=== PATIENT | female | born 1945 | race Caucasian/White ===

== ENCOUNTER 2016-12-23 06:07 | Day surgery (SDC) | payer OTHER ==
[~2016-12-23] VITALS: Ht 147.3 cm; Wt 52.0 kg
[2016-12-23] VITALS (7 sets, daily range): BP systolic 107–152; BP diastolic 62–84; PULSE 57–65; RESP 16–20; TEMP 97.3; O2SAT 91–95
[2016-12-23] MEDS ORDERED: VANCOMYCIN 1000 MG/NS 250 ML - implanted port/tunneled catheter IV SCH ×2 (06:45)
[2016-12-23] MEDS ORDERED: CHLORHEXIDINE GLUCONATE 2 % 1 PACK (2 CLOTHS) TOPICAL SCH (06:45)
[2016-12-23] MEDS ORDERED: SODIUM CHLORIDE 0.9% 1000 ML IV SCH (06:45)
[2016-12-23] MEDS ORDERED: POVIDONE IODINE 5% (ANTISEPSIS KIT) 4 APPLICATIONS EACH NARE SCH (06:45)
[2016-12-23] MEDS ORDERED: LISI-519 PO (06:59)
[2016-12-23] MEDS ORDERED: CENTCHW4 CHEW (06:59)
[2016-12-23] MEDS ORDERED: POTA10CA PO (06:59)
[2016-12-23] MEDS ORDERED: PAXI10TA2 PO (06:59)
[2016-12-23] MEDS ORDERED: FURO20TA PO (06:59)
[2016-12-23] MEDS ORDERED: OMEP40CA2 PO (06:59)
[2016-12-23] MEDS ORDERED: AMIO200T PO (06:59)
[2016-12-23] MEDS ORDERED: IPRASOL INH (06:59)
[2016-12-23] MEDS ORDERED: ROSU1TAB6 PO (06:59)
[2016-12-23] MEDS ORDERED: ASPI325T PO (06:59)
[2016-12-23] MEDS ORDERED: PROP50TA2 PO (06:59)
[2016-12-23] MEDS ORDERED: METO25TA3 PO (06:59)
[2016-12-23] MEDS ORDERED: LIDOCAINE 1%/EPINEPHrine 1:100,000 SOLN 20 ML VIAL ONE (08:24)
[2016-12-23] MEDS ORDERED: MIDAZOLAM HCL 2 MG/2 ML VIAL IV ONE (08:50)
--- NOTE | 2016-12-23 08:56 | PD.RAD ---
Post Procedure Progress Note Pre Procedure Diagnosis: (1) Lung cancer Post Procedure Diagnosis: (1) Lung cancer Procedure Date: Dec 23, 2016 Supervising Radiologist: Pancho Marrufo Proceduralist/Assist: Rupert Galaviz, RT(R), Regine Garcia RT(R) Anesthesia: Conscious Sedation Plan of Activity Patient to Unit: [facility] Patient Condition: Good See PACS Report for procedural detail/treatment Pancho Marrufo MD Dec 23, 2016 08:56
[2016-12-23] MEDS ORDERED: SODIUM CHLORIDE 0.9% FLUSH 10 ML FLUSH IVF PRN (09:00)
--- NOTE | 2016-12-23 09:44 | RADRPT ---
EXAM DATE/TIME: 12/23/2016 08:29 [facility] COMPARISON: No previous studies available for comparison. INDICATIONS : Patient presents with lung cancer in need of port placement for treatment. MEDICAL HISTORY : Anxiety Atrial fibrillation COPD Congestive heart failure CAD Depression GERD High cholesterol Hyperthyroidism SURGICAL HISTORY : Colonoscopy Defibrillator Heart Bypass Hysterectomy, complete- ovarian cyst CABG ENCOUNTER: Initial ACUITY: 1 month PAIN SCORE: 0/10 LOCATION: N/A FLUORO TIME: 2.1 minutes IMAGE SERIES: 0 SEDATION TIME: 30 minutes ACCESS: Right internal jugular vein SEDATION: 1.) 3 mg midazolam (Versed) IV 2.) 150 mcg fentanyl (Sublimaze) IV Prophylactic antibiotics were administered with appropriate pre-procedure timing. Vancomycin within 2 hours of procedure, Ancef (or alternative) within 1 hour of procedure. DEVICE: 1. [address] [place] single lumen [address] CT PROCEDURE : 1. Continuous pulse oximetry and EKG monitoring. 2. Intravenous conscious sedation. 3. Ultrasound guidance for venous access. 4. Fluoroscopic guided implantable central venous port placement. The patient was placed supine. The neck was prepped in sterile fashion. Full sterile technique was u sed, including cap, mask, sterile gloves and gown, and a large sterile sheet. Hand hygiene and 2% ch lorhexidine Betadine was utilized per protocol for cutaneous antisepsis with appropriate dry time for site. Sterile gel and sterile probe cover were utilized for ultrasound guidance. The skin and sub cutaneous tissues were infiltrated with local anesthetic solution. Under direct ultrasound guidance, central venous access was accomplished in the targeted vessel. The ultrasound images depicting access guidance were stored and saved to PACS for permanent record. A s ubcutaneous pocket was created using blunt dissection. The port was introduced to the pocket. The c atheter tubing was fed through a subcutaneous tunnel to the venotomy site. The catheter tubing was c ut to a suitable length and then was introduced through a valved Peel-Away sheath and positioned with catheter tubing tip at the cavo-atrial junction level. The pocket incision was closed with subcutic ular Vicryl suture. Steri-Strips were applied. The port was flushed and locked with heparin solutio n per protocol. Sterile dressing was applied to the site. The patient tolerated the procedure well. Conscious sedation was performed with the prescribed dosages and duration as above in the presence of an independent trained radiology nurse to assist in the monitoring of the patient. EKG and oximetry remained stable throughout the procedure. The patient tolerated the procedure well and there were no complications. The patient was sent to post anesthesia recovery in stable condition. CONCLUSION: Uncomplicated ultrasound and fluoroscopic guided implanted central venous port catheter placement as described in detail above. An 8 [place] Power port was placed. Pancho Marrufo MD on December 23, 2016 at 9:42 Board Certified Radiologist. This report was verified electronically.
== END 2016-12-23 11:25 | disposition home or self-care (01) ==
LOC: HROP 06:07 → HRIP 06:35 → HROP 11:25
PROVIDERS: ATTEND Internal Medicine Hematology & Oncology
DX: C34.90 Malignant neoplasm of unspecified part of unspecified bronchus or lung (principal); I48.91 Unspecified atrial fibrillation; I50.9 Heart failure, unspecified; J44.9 Chronic obstructive pulmonary disease, unspecified; E05.90 Thyrotoxicosis, unspecified without thyrotoxic crisis or storm; K21.9 Gastro-esophageal reflux disease without esophagitis; Z95.1 Presence of aortocoronary bypass graft; Z95.810 Presence of automatic (implantable) cardiac defibrillator
CPT/HCPCS: 36561; 76937; 77001; 99152; 99153; C1788; J1642; J2250; J3010

== ENCOUNTER 2017-05-05 11:39 | Inpatient (IN) | payer OTHER, MEDICARE ==
[~2017-05-05] VITALS: Ht 149.9 cm; Wt 60.9 kg
[~2017-05-05 11:39] MED LIST: AMIO200T PO; ASPI-183 PO; CENTCHW4 CHEW; FURO20TA PO; IPRASOL INH; LISI-519 PO; METO25TA3 PO; OMEP40CA2 PO; PAXI10TA8 PO; POTA10CA PO; PROP50TA2 PO; ROSU1TAB6 PO
[2017-05-05 12:12] VITALS: BP 115/61; PULSE 57; RESP 18; TEMP 96.7; O2SAT 96
--- NOTE | 2017-05-05 12:46 | RADRPT ---
EXAM DATE/TIME: 05/05/2017 12:32 [facility] COMPARISON: No previous studies available for comparison. INDICATIONS : Short of breath. MEDICAL HISTORY : Carcinoma, lung. Atrial fibrilation. SURGICAL HISTORY : Infusaport. Internal defibrilator. ENCOUNTER: Initial ACUITY: 1 day PAIN SCORE: 0/10 LOCATION: Bilateral chest FINDINGS: PA and lateral views of the chest demonstrate pacer lead overlying right ventricle. [id number]-Segj in right atrium. Elevated left hemidiaphragm. Linear atelectasis or scarring at the bases. Previous medi an sternotomy. No prior radiographs for comparison. Hazy opacity upper left lung which could be related to posttreatment changes of radiation for lung ma ss. CONCLUSION: Hazy opacity in the left lung possibly related to prior radiation change for reported lung carcinoma. There is some basal atelectasis or scarring and elevated left hemidiaphragm. Wudcda-i-Fauq tip in ri ght atrium. Guille Farnsworth MD on May 05, 2017 at 12:41 Board Certified Radiologist. This report was verified electronically.
[2017-05-05 15:22] VITALS: BP 126/70; PULSE 58; RESP 18; O2SAT 96
--- NOTE | 2017-05-05 15:41 | PD ---
HPI Chief Complaint: Edema Time Seen by Provider: 15:23 Travel History International Travel<30 days: No Contact w/Intl Traveler<30days: No Traveled to known affect area: No History of Present Illness HPI 71-year-old female with history of non-small cell lung cancer on chemo, anxiety , hyperthyroidism, a fib s/p ICD, presents to the emergency department from her oncologist's office, Dr. Wong, for evaluation of bilateral lower extremity edema and shortness of breath. Patient states that the lower extremity swelling started approximately 4 days ago and has become progressively worse. Patient states that she started becoming short of breath about 6 weeks ago after the start of her chemotherapy. Says she does not feel short of breath now and believes that her symptoms today were secondary to anxiety while she was in the office today. Denies fevers, chills, chest pain. PFSH Past Medical History Anxiety: Yes Cancer: Yes (Lung cancer) Cardiovascular Problems: Yes (CAD) Chemotherapy: Yes Diabetes: No GERD: Yes Hepatitis: No Hypertension: Yes Immune Disorder: No Psychiatric: Yes (anxiety) Respiratory: Yes (COPD) Immunizations Current: Yes Thyroid Disease: Yes (Hyperthyroid) ?: Not Past Surgical History AICD: Yes Cardiac Surgery: Yes (CABG, AICD, STENTS) Gynecologic Surgery: Yes (Hysterectomy) Hysterectomy: Yes Oral Surgery: Yes (Tonsilectomy) Tonsillectomy: Yes Other Surgery: Yes ("VEIN STRIPPING IN BOTH LEGS") Social History Alcohol Use: No Tobacco Use: No Substance Use: No Allergies-Medications (Allergen,Severity, Reaction): Coded Allergies: penicillin G (Verified Allergy, Severe, "Knocks me out", 05/05/17) Patient reports severe allergy. paroxetine (Verified Allergy, Intermediate, Hives, 05/05/17) Patient states this happens with the generic paxil codeine (Verified Adverse Reaction, Intermediate, Nausea/Vomiting, 05/05/17 ) Reported Meds & Prescriptions Reported Meds & Active Scripts Active Reported Centrum (Multiple Vitamins W/ Minerals) 1 Chew 1 Tab CHEW DAILY Amiodarone (Amiodarone HCl) 200 Mg Tab 200 Mg PO DAILY Omeprazole 40 Mg Cap 40 Mg PO DAILY Aspirin 325 Mg Tab 325 Mg PO DAILY Rosuvastatin (Rosuvastatin Calcium) 10 Mg Tab 10 Mg PO HS Paxil (Paroxetine HCl) 10 Mg Tab 20 Mg PO DAILY Lisinopril 5 Mg Tab 5 Mg PO DAILY Potassium Chloride ER (Potassium Chloride) 10 Meq Cap 10 Meq PO BID Furosemide 20 Mg Tab 20 Mg PO DAILY Metoprolol Tartrate 25 Mg Tab 25 Mg PO BID Propylthiouracil 50 Mg Tab 100 Mg PO Q12HR Review of Systems Except as stated in HPI: all other systems reviewed are Neg Physical Exam Narrative GENERAL: WD, thin in NAD SKIN: Focused skin assessment warm/dry. HEAD: Atraumatic. Normocephalic. EYES: Pupils equal and round. No scleral icterus. No injection or drainage. ENT: No nasal bleeding or discharge. Mucous membranes pink and moist. NECK: Trachea midline. No JVD. CARDIOVASCULAR: Regular rate and rhythm. No murmur appreciated. RESPIRATORY: No accessory muscle use. Clear to auscultation. Breath sounds equal bilaterally. GASTROINTESTINAL: Abdomen soft, non-tender, nondistended. Hepatic and splenic margins not palpable. MUSCULOSKELETAL: No obvious deformities. No clubbing. No cyanosis. Bilateral lower extremity edema without erythema NEUROLOGICAL: Awake and alert. No obvious cranial nerve deficits. Motor grossly within normal limits. Normal speech. PSYCHIATRIC: Appropriate mood and affect; insight and judgment normal. Data Data Last Documented VS Vital Signs Date Time Temp Pulse Resp B/P (MAP) Pulse Ox O2 Delivery O2 Flow Rate FiO2 05/05/17 17:47 90 18 145/67 (93) 96 05/05/17 17:02 97.7 05/05/17 15:22 Room Air Orders Orders Complete Blood Count With Diff (05/05/17 12:17) Comprehensive Metabolic Panel (05/05/17 12:17) Prothrombin Time / Inr (Pt) (05/05/17 12:17) Act Partial Throm Time (Ptt) (05/05/17 12:17) Electrocardiogram (05/05/17 ) B-Type Natriuretic Peptide (05/05/17 12:17) Creatine Kinase (Cpk) (05/05/17 12:17) Troponin I (05/05/17 12:17) Magnesium (Mg) (05/05/17 12:17) Chest, Pa & Lat (05/05/17 ) Us Leg Venous Doppler Bilat (05/05/17 ) CKMB (05/05/17 15:50) CKMB% (05/05/17 15:50) Furosemide Inj (Lasix Inj) (05/05/17 17:45) Aspirin Chew (Aspirin Chew) (05/05/17 17:45) Nitroglycerin 2% Oint (Nitroglycerin 2% (05/05/17 18:00) Admit Order (Ed Use Only) (05/05/17 17:50) Labs Laboratory Tests Test 05/05/17 15:50 Blood Urea Nitrogen 13 MG/DL Creatinine 0.90 MG/DL Random Glucose 76 MG/DL Total Protein 6.9 GM/DL Albumin 2.9 GM/DL Calcium Level 8.9 MG/DL Magnesium Level 2.0 MG/DL Alkaline Phosphatase 321 U/L Aspartate Amino Transf (AST/SGOT) 104 U/L Alanine Aminotransferase (ALT/SGPT) 84 U/L Total Bilirubin 2.8 MG/DL Sodium Level 134 MEQ/L Potassium Level 4.2 MEQ/L Chloride Level 101 MEQ/L Carbon Dioxide Level 26.5 MEQ/L Anion Gap 7 MEQ/L Estimat Glomerular Filtration Rate 62 ML/MIN Total Creatine Kinase 523 U/L Creatine Kinase MB 10.4 NG/ML Creatine Kinase MB % 2.0 % Troponin I 0.17 NG/ML B-Type Natriuretic Peptide 922 PG/ML MDM Medical Decision Making Medical Screen Exam Complete: Yes Emergency Medical Condition: Yes Differential Diagnosis pneumonia, CHF, lung cancer, anxiety, Narrative Course 71-year-old female with history of non-small cell lung cancer on chemo, anxiety , hyperthyroidism, a fib s/p ICD, presents to the emergency department from her oncologist's office, Dr. Wong, for evaluation of bilateral lower extremity edema and shortness of breath. Patient states that the lower extremity swelling started approximately 4 days ago and has become progressively worse. Patient states that she started becoming shortness of breath about 6 weeks ago after the start of her chemotherapy. Says she does not feel short of breath now and believes that her symptoms today were secondary to anxiety while she was in the office today. Denies fevers, chills, chest pain. While evaluating the patient, patient mentions her cousin whom 23 years ago after a significant MVC. Says that she may be anxious as a result of this 'anniversary'. Vitals stable. Last Impressions Lower Extremity Ultrasound 05/05/17 0000 Signed Impressions: Service Date/Time: Friday, May 05, 2017 16:09 - CONCLUSION: There is occlusive thrombus present within left leg varicosities. Roney Louie MD Chest X-Ray 05/05/17 0000 Signed Impressions: Service Date/Time: Friday, May 05, 2017 12:32 - CONCLUSION: Hazy opacity in the left lung possibly related to prior radiation change for reported lung carcinoma. There is some basal atelectasis or scarring and elevated left hemidiaphragm. Dfaaxp-e-Jdbq tip in right atrium. Guille Farnsworth MD Labs significant for total CK 523, troponin 0.17, BNP 922. Lasix 20mg, ASA 162mg, nitro 0.5" paste administered. Pt continues to be resting comfortable in bed. She understands her diagnosis and agrees to this admission. She will be admitted for CHF exacerbation, left leg varicosity thrombosis. Diagnosis Primary Impression: CHF (congestive heart failure) Qualified Codes: I50.9 - Heart failure, unspecified Additional Impression: Thrombosis Admitting Information Admitting Physician Requests: Admit Condition: Stable Linh Walton May 05, 2017 15:41
--- NOTE | 2017-05-05 16:53 | RADRPT ---
EXAM DATE/TIME: 05/05/2017 16:09 [facility] COMPARISON: No previous studies available for comparison. INDICATIONS : Bilateral lower extremity edema. MEDICAL HISTORY : Gastroesophageal reflux disease. Hypertension. Hyperthyroidism. Coronary artery disease. Lung cancer . SURGICAL HISTORY : Tonsillectomy.CABG Hysterectomy.Cardiac stents. AICD. Vein stripping in both legs. ENCOUNTER: Initial ACUITY: 1 week PAIN SCORE: 2/10 LOCATION: Bilateral legs. TECHNIQUE: Venous ultrasound of the left and right leg was performed from the inguinal ligament to the proximal calf. Real-time, color Doppler and spectral tracing, compression and augmentation techniques were us ed. FINDINGS: The right common femoral, femoral, popliteal, peroneal and posterior tibial veins are patent. The lef t common femoral, femoral, popliteal, peroneal and posterior tibial veins are patent. There is thromb us present within left lower [place] he varicosities as well. CONCLUSION: There is occlusive thrombus present within left leg varicosities. Roney Louie MD on May 05, 2017 at 16:49 Board Certified Radiologist. This report was verified electronically.
[2017-05-05 17:02] VITALS: TEMP 97.7
[2017-05-05 17:11] LABS: ALBUMIN 2.9 GM/DL (3.4-5.0); ALKALINE PHOSPHATASE 321 U/L (45-117); ALT (GPT) 84 U/L (10-53); AST (GOT) 104 U/L (15-37); BICARBONATE 26.5 MEQ/L (21.0-32.0); BLOOD UREA NITROGEN 13 MG/DL (7-18); CALCIUM 8.9 MG/DL (8.5-10.1); CHLORIDE 101 MEQ/L (98-107); GLOMERULAR FILTRATION RATE 62 ML/MIN (>89); GLUCOSE,RANDOM 76 MG/DL (74-106); SODIUM (NA) 134 MEQ/L (136-145); TOTAL BILIRUBIN ADULT 2.8 MG/DL (0.2-1.0); TOTAL PROTEIN 6.9 GM/DL (6.4-8.2); TROPONIN I 0.17 NG/ML (0.02-0.05)
[2017-05-05] MEDS ORDERED: FUROSEMIDE 20 MG/2 ML VIAL IV PUSH ONE (17:45)
[2017-05-05] MEDS ORDERED: ASPIRIN 81 MG CHEW TAB CHEW ONE (17:45)
[2017-05-05 17:47] VITALS: BP 145/67; PULSE 90; RESP 18; O2SAT 96
[2017-05-05] MEDS ORDERED: NITROGLYCERIN 2% OINT 1 GM PACKET TOPICAL ONE (18:00)
[2017-05-05 19:00] LABS: AUTOMATED NEUTROPHIL # 6.4 TH/MM3 (1.8-7.7); BASOPHIL % 0.3 % (0.0-2.0); EOSINOPHIL % 0.2 % (0.0-4.0); HEMATOCRIT 45.6 % (35.0-46.0); HEMOGLOBIN 14.9 GM/DL (11.6-15.3); LYMPH % 9.5 % (9.0-44.0); LYMPHOCYTE # 0.7 TH/MM3 (1.0-4.8); MEAN CELL VOLUME 114.1 FL (80.0-100.0); MEAN CORPUSCULAR HEMOGLOBIN 37.3 PG (27.0-34.0); MEAN CORPUSCULAR HGB CONC 32.7 % (32.0-36.0); MONO % 7.8 % (0.0-8.0); MONOCYTE # 0.6 TH/MM3 (0-0.9); NEUT % 82.2 % (16.0-70.0); PLATELET COUNT 49 TH/MM3 (150-450); RED CELL DISTRIBUTION WIDTH 21.2 % (11.6-17.2); WHITE BLOOD COUNT 7.7 TH/MM3 (4.0-11.0)
[2017-05-05] MEDS ORDERED: ACETAMINOPHEN 325 MG TAB PO PRN ×2 (19:00)
[2017-05-05] MEDS ORDERED: NALOXONE HCL 0.4 MG/ML AMP IV PUSH PRN (19:00)
[2017-05-05] MEDS ORDERED: ONDANSETRON HCL 4 MG/2 ML VIAL IVP PRN (19:00)
[2017-05-05] MEDS ORDERED: SENNOSIDES 8.6 MG TAB PO PRN (19:00)
[2017-05-05] MEDS ORDERED: SODIUM CHLORIDE 0.9% FLUSH 10 ML FLUSH IV FLUSH PRN (19:00)
[2017-05-05 19:30] VITALS: O2SAT 96
[2017-05-05 19:31] VITALS: BP 141/62; PULSE 60; RESP 22; O2SAT 97
[2017-05-05 20:03] LABS: INTERNATIONAL NORMALIZED RATIO 1.8 RATIO; PROTHROMBIN TIME - PATIENT 18.4 SEC (9.8-11.6)
[2017-05-05] MEDS: SODIUM CHLORIDE 0.9% FLUSH 10 ML FLUSH IV FLUSH SCH (21:00)
[2017-05-05] MEDS: ENOXAPARIN SODIUM 80 MG/0.8 ML SYRINGE SQ SCH (21:18)
[2017-05-05] MEDS ORDERED: IOHEXOL 350 MG/ML 10 ML VIAL (for RAD DIAG) IVCONTRAST ONE (21:53)
--- NOTE | 2017-05-05 22:09 | RADRPT ---
EXAM DATE/TIME: 05/05/2017 21:42 [facility] COMPARISON: No previous studies available for comparison. INDICATIONS : Shortness of breath; rule out pulmonary embolus. IV CONTRAST: 74 cc Omnipaque 350 (iohexol) IV RADIATION DOSE: 6.19 CTDIvol (mGy) MEDICAL HISTORY : Hypertension. Carcinoma, lung. SURGICAL HISTORY : CABG Tonsillectomy. ENCOUNTER: Initial ACUITY: 2 days PAIN SCALE: 0/10 LOCATION: chest TECHNIQUE: Volumetric scanning of the chest was performed using a pulmonary embolism protocol MIP images were re constructed. Using automated exposure control and adjustment of the mA and/or kV according to patien t size, radiation dose was kept as low as reasonably achievable to obtain optimal diagnostic quality images. DICOM format image data is available electronically for review and comparison. Follow-up recommendations for detected pulmonary nodules are based at a minimum on nodule size and pa tient risk factors according to Fleischner Society Guidelines. FINDINGS: There is no pulmonary embolus. Large left hilar mass present, measures approximately 6.2 x 5.9 x 4.4 cm. It causes mass effect on th e main and left pulmonary arteries but they remain patent. The mass encases the left upper lobe pulmo nary artery and bronchus with occlusion, especially the lingular portion. There is patchy, mildly mas slike consolidation in the left lung apex. There is post obstructive type consolidation in the lingul ar division of the left upper lobe. A small to moderate left pleural effusion is present. No pulmonary mass or consolidation on the right. CONCLUSION: 1. No pulmonary embolus. 2. Large left hilar mass which may be metastatic or a central primary bronchogenic carcinoma. There i s associated lingular bronchus and pulmonary artery obstruction. Mass effect and mild narrowing on/of the main and left main branch pulmonary artery. 3. Patchy nodular left apex upper lobe consolidation, most likely infectious or inflammatory although malignancy not entirely excludable. 4. Small to moderate left pleural effusion. Braden Ferrer MD on May 05, 2017 at 22:00 Board Certified Radiologist. This report was verified electronically.
--- NOTE | 2017-05-05 23:42 | HHI.HP ---
HPI Service [facility] Hospitalists Primary Care Physician Non-Staff Admission Diagnosis CHF Diagnoses: Travel History International Travel<30 Days: No Contact w/Intl Traveler <30 Da: No Traveled to Known Affected Are: No History of Present Illness History from patient, and review of medical records. Patient reported that she went to her chemotherapy this morning and was complaining of her bilateral lower extremity swelling to her oncologist. This swelling has been going on for the past 4 days. There for the oncologist has sent her to come to hospital. Patient reports that she also has shortness of breath. But again stated this is chronic and is because of anxiety. She then stated that last week though, her cough was getting worse. Denies any chest pains or palpitations. Patient was discharged from [facility] about 2 months ago. She denies any fever. Denies cough. Reports somewhat chronic cough though. Denies any vomiting. She did have nausea with chemotherapy. Also reports of occasional specks of blood in her cough. Denies any black or red stool. Denies blood in her urine. Denies any urinary burning or pain on urination. Reports she does have occasional diarrhea/constipation alternating. Again this is chronic. Review of Systems Except as stated in HPI: all other systems reviewed are Neg Past Family Social History Past Medical History htn cad- massive [place] 23 yrs ago, had [facility] chf- s/p aicd 35% afib- only asa; not on any anticoagulation apart from asa copd squamous cell carcinoma of the lung - on chemo - last dose was 3 weeks ago; was supposed to start radiation today anxiety hyperthyroidism Past Surgical History s/p aicd- 7 yrs ago; replaced it 2 months ago (the whole device) by Dr Moran at [facility] 23yrs ago coronary angiogram hysterectomy tonsilectomy venous stripping egd and colonoscopy--bleeding hemorrhoids and polyps removed Allergies: Coded Allergies: penicillin G (Verified Allergy, Severe, "Knocks me out", 05/05/17) Patient reports severe allergy. paroxetine (Verified Allergy, Intermediate, Hives, 05/05/17) Patient states this happens with the generic paxil codeine (Verified Adverse Reaction, Intermediate, Nausea/Vomiting, 05/05/17 ) Family History father- liver dx , dm, cad with [facility], son- heart murmur daughter- htn another son- htn Social History quit smoking oct 2016 no etoh abuse no drugs abuse lives on her own , but who lives different apt comes and helps her Physical Exam Vital Signs Vital Signs Date Time Temp Pulse Resp B/P (MAP) Pulse Ox O2 Delivery O2 Flow Rate FiO2 05/05/17 22:46 05/05/17 19:31 60 22 141/62 (88) 97 Room Air 05/05/17 19:30 96 05/05/17 17:47 90 18 145/67 (93) 96 05/05/17 17:02 97.7 05/05/17 15:22 58 18 126/70 (88) 96 Room Air 05/05/17 12:12 96.7 57 18 115/61 (79) 96 Physical Exam GENERAL: This is a well-nourished, well-developed patient, in no apparent distress. SKIN: at suprapubic area with skin redness, ulceration HEAD: Atraumatic. Normocephalic. No temporal or scalp tenderness. Alopecia EYES: No scleral icterus. No injection or drainage. ENT: Nose without bleeding, purulent drainage or septal hematoma. Uvula midline. Airway patent. NECK: Trachea midline. No JVD. Supple, nontender, no meningeal signs. CARDIOVASCULAR: Regular rate and rhythm without murmurs, gallops, or rubs. RESPIRATORY: Clear to auscultation. Breath sounds equal bilaterally. No wheezes , rales, or rhonchi. GASTROINTESTINAL: Abdomen soft, non-tender, nondistended. No guarding. MUSCULOSKELETAL: Extremities without clubbing, cyanosis. Bilateral lower extremity pitting edema 3+ up to knees NEUROLOGICAL: Awake and alert. No acute deficits Normal speech. Laboratory Laboratory Tests Test 05/05/17 15:50 05/05/17 18:35 05/05/17 19:25 05/05/17 19:35 Blood Urea Nitrogen 13 Creatinine 0.90 Random Glucose 76 Total Protein 6.9 Albumin 2.9 Calcium Level 8.9 Magnesium Level 2.0 Alkaline Phosphatase 321 Aspartate Amino Transf (AST/SGOT) 104 Alanine Aminotransferase (ALT/SGPT) 84 Total Bilirubin 2.8 Sodium Level 134 Potassium Level 4.2 Chloride Level 101 Carbon Dioxide Level 26.5 Anion Gap 7 Estimat Glomerular Filtration Rate 62 Total Creatine Kinase 523 Creatine Kinase MB 10.4 Creatine Kinase MB % 2.0 Troponin I 0.17 0.13 B-Type Natriuretic Peptide 922 White Blood Count 7.7 Red Blood Count 4.00 Hemoglobin 14.9 Hematocrit 45.6 Mean Corpuscular Volume 114.1 Mean Corpuscular Hemoglobin 37.3 Mean Corpuscular Hemoglobin Concent 32.7 Red Cell Distribution Width 21.2 Platelet Count 49 Mean Platelet Volume 11.0 Neutrophils (%) (Auto) 82.2 Lymphocytes (%) (Auto) 9.5 Monocytes (%) (Auto) 7.8 Eosinophils (%) (Auto) 0.2 Basophils (%) (Auto) 0.3 Neutrophils # (Auto) 6.4 Lymphocytes # (Auto) 0.7 Monocytes # (Auto) 0.6 Eosinophils # (Auto) 0.0 Basophils # (Auto) 0.0 CBC Comment AUTO DIFF Differential Comment AUTO DIFF CONFIRMED Prothrombin Time 18.4 Prothromb Time International Ratio 1.8 Activated Partial Thromboplast Time 29.8 Result Diagram: 05/05/17 1835 05/05/17 1550 Imaging Last 48 hours Impressions Lower Extremity Ultrasound 05/05/17 0000 Signed Impressions: Service Date/Time: Friday, May 05, 2017 16:09 - CONCLUSION: There is occlusive thrombus present within left leg varicosities. Roney Louie MD Chest X-Ray 05/05/17 0000 Signed Impressions: Service Date/Time: Friday, May 05, 2017 12:32 - CONCLUSION: Hazy opacity in the left lung possibly related to prior radiation change for reported lung carcinoma. There is some basal atelectasis or scarring and elevated left hemidiaphragm. [id number]-[id number] tip in right atrium. Guille Farnsworth MD CT Angiography 05/05/17 0000 Signed Impressions: Service Date/Time: Friday, May 05, 2017 21:42 - CONCLUSION: 1. No pulmonary embolus. 2. Large left hilar mass which may be metastatic or a central primary bronchogenic carcinoma. There is associated lingular bronchus and pulmonary artery obstruction. Mass effect and mild narrowing on/of the main and left main branch pulmonary artery. 3. Patchy nodular left apex upper lobe consolidation, most likely infectious or inflammatory although malignancy not entirely excludable. 4. Small to moderate left pleural effusion. Braden Ferrer MD [place] VTE Risk Assessment Caprini VTE Risk Assessment: Mod/High Risk (score >= 2) Caprini Risk Assessment Model Point Value = 1 Point Value = 2 Point Value = 3 Point Value = 5 Age 41-60 Minor surgery BMI > 25 kg/m2 Swollen legs Varicose veins or History of unexplained or recurrent spontaneous Oral contraceptives or hormone replacement Sepsis (< 1 month) Serious lung disease, including pneumonia (< 1 month) Abnormal pulmonary function Acute myocardial infarction Congestive heart failure (< 1 month) History of inflammatory bowel disease Medical patient at bed rest Age 61-74 Arthroscopic surgery Major open surgery (> 45 min) Laparoscopic surgery (> 45 min) Malignancy Confined to bed (> 72 hours) Immobilizing plaster cast Central venous access Age >= 75 History of VTE Family history of VTE Factor V Leiden Prothrombin [id number] Lupus anticoagulant Anticardiolipin antibodies Elevated serum homocysteine Heparin-induced thrombocytopenia Other congenital or acquired thrombophilia Stroke (< 1 month) Elective arthroplasty Hip, pelvis, or leg fracture Acute spinal cord injury (< 1 month) Prophylaxis Regimen Total Risk Factor Score Risk Level Prophylaxis Regimen 0-1 Low Early ambulation 2 Moderate Order ONE of the following: *Sequential Compression Device (SCD) *Heparin 5000 units SQ BID 3-4 Higher Order ONE of the following medications: *Heparin 5000 units SQ TID *Enoxaparin/Lovenox 40 mg SQ daily (WT < 150 kg, CrCl > 30 mL/min) *Enoxaparin/Lovenox 30 mg SQ daily (WT < 150 kg, CrCl > 10-29 mL/min) *Enoxaparin/Lovenox 30 mg SQ BID (WT < 150 kg, CrCl > 30 mL/min) AND/OR *Sequential Compression Device (SCD) 5 or more Highest Order ONE of the following medications: *Heparin 5000 units SQ TID (Preferred with Epidurals) *Enoxaparin/Lovenox 40 mg SQ daily (WT < 150 kg, CrCl > 30 mL/min) *Enoxaparin/Lovenox 30 mg SQ daily (WT < 150 kg, CrCl > 10-29 mL/min) *Enoxaparin/Lovenox 30 mg SQ BID (WT < 150 kg, CrCl > 30 mL/min) AND *Sequential Compression Device (SCD) Assessment and Plan Assessment and Plan Impression: acute on chronic symptomatic chf exacerbation bilateral LE edema LLE occlusive thrombus in varicosities medications non compliance- stated she skips lasix sometimes due to her med apt , and has missed them going to chemo apt suprapubic area skin ulceration/ cellulitis- at hysterectomy scar area foul smelling urine htn cad- massive [place] 23 yrs ago, had [facility] chf- s/p aicd 35% afib- only asa; not on any anticoagulation apart from asa copd squamous cell carcinoma of the lung - on chemo - last dose was 3 weeks ago; was supposed to start radiation today anxiety hyperthyroidism Plan: lovenox therapeutic dose for afib will ask pt's oncologist for anticoagulation thrombus is within varicosities per report , however, patient is also indicated forceful anticoagulation for her A. fib. Serial cardiac enzymes and EKGs. Patient is diuresing well with 20 mg IV of Lasix that she received in ER. We'll continue Lasix at 20 mg IV every 12 hours. Start patient on levofloxacin 500 mg by mouth every 24 hours for her skin ulcerations/cellulitis at suprapubic/hysterectomy scar area Check UA and urine culture if indicated. Resume home medications. DVT prophylaxis on Lovenox. Discussed Condition With Patient, nursing staff Lucia Rawls MD May 05, 2017 23:42
[2017-05-06] VITALS (10 sets, daily range): BP systolic 92–118; BP diastolic 51–84; PULSE 58–69; RESP 16–18; TEMP 97.6–98.6; O2SAT 94–98
[2017-05-06] MEDS: LEVOFLOXACIN 500 MG TAB PO SCH (00:24)
[2017-05-06] MEDS ORDERED: FUROSEMIDE 40 MG/4 ML VIAL IV PUSH ONE (00:30)
[2017-05-06 01:51] LABS: AUTOMATED NEUTROPHIL # 5.6 TH/MM3 (1.8-7.7); BASOPHIL % 0.1 % (0.0-2.0); EOSINOPHIL % 0.1 % (0.0-4.0); HEMATOCRIT 38.7 % (35.0-46.0); HEMOGLOBIN 12.7 GM/DL (11.6-15.3); LYMPH % 7.6 % (9.0-44.0); LYMPHOCYTE # 0.5 TH/MM3 (1.0-4.8); MEAN CELL VOLUME 114.5 FL (80.0-100.0); MEAN CORPUSCULAR HEMOGLOBIN 37.6 PG (27.0-34.0); MEAN CORPUSCULAR HGB CONC 32.8 % (32.0-36.0); MEAN PLATELET VOLUME 11.1 FL (7.0-11.0); MONO % 7.7 % (0.0-8.0); MONOCYTE # 0.5 TH/MM3 (0-0.9); NEUT % 84.5 % (16.0-70.0); PLATELET COUNT 52 TH/MM3 (150-450); RED BLOOD COUNT 3.38 MIL/MM3 (4.00-5.30); RED CELL DISTRIBUTION WIDTH 21.8 % (11.6-17.2); WHITE BLOOD COUNT 6.6 TH/MM3 (4.0-11.0)
[2017-05-06 02:07] LABS: ALKALINE PHOSPHATASE 260 U/L (45-117); TOTAL BILIRUBIN ADULT 2.5 MG/DL (0.2-1.0); TOTAL PROTEIN 5.9 GM/DL (6.4-8.2); TROPONIN I 0.12 NG/ML (0.02-0.05)
[2017-05-06 02:11] LABS: ALBUMIN 2.4 GM/DL (3.4-5.0); ALT (GPT) 74 U/L (10-53); AST (GOT) 94 U/L (15-37); BICARBONATE 29.2 MEQ/L (21.0-32.0); BLOOD UREA NITROGEN 15 MG/DL (7-18); CALCIUM 8.2 MG/DL (8.5-10.1); CHLORIDE 102 MEQ/L (98-107); CREATININE 1.06 MG/DL (0.50-1.00); GLOMERULAR FILTRATION RATE 51 ML/MIN (>89); GLUCOSE,RANDOM 121 MG/DL (74-106); SODIUM (NA) 137 MEQ/L (136-145)
[2017-05-06 03:15] LABS: HOWELL-JOLLY BODIES PRESENT (NONE SEEN)
[2017-05-06 03:17] LABS: ACANTHOCYTES OCC (NORMAL); OVALOCYTES 1+ (NORMAL)
[2017-05-06] MEDS: POTASSIUM CHLORIDE 10 MEQ CAP PO SCH ×2 (07:58→22:34)
[2017-05-06] MEDS: PROPYLTHIOURACIL 50 MG TAB PO SCH ×2 (07:58→22:34)
[2017-05-06] MEDS: METOPROLOL TARTRATE 25 MG TAB PO SCH ×2 (07:58→22:34)
[2017-05-06] MEDS: MULTIVITAMINS/MINERALS THERAPEUTIC TAB PO SCH (07:58)
[2017-05-06] MEDS: PANTOPRAZOLE SOD 40 MG DELAYED RELEASE TAB PO SCH (07:59)
[2017-05-06] MEDS: LISINOPRIL 5 MG TAB PO SCH (07:59)
[2017-05-06] MEDS: FUROSEMIDE 20 MG/2 ML VIAL IV PUSH SCH ×2 (07:59→17:35)
[2017-05-06] MEDS: SODIUM CHLORIDE 0.9% FLUSH 10 ML FLUSH IV FLUSH SCH ×2 (08:00→22:35)
[2017-05-06] MEDS: ENOXAPARIN SODIUM 80 MG/0.8 ML SYRINGE SQ SCH ×2 (08:00→22:35)
[2017-05-06] MEDS ORDERED: NON-FORMULARY DRUG (Omeprazole 40 MG) PO SCH (09:00)
[2017-05-06] MEDS: NON-FORMULARY DRUG (Paroxetine (Paxil) 20 MG) PO SCH (09:00)
[2017-05-06] MEDS ORDERED: ASPIRIN 325 MG TAB PO SCH (09:00)
--- NOTE | 2017-05-06 09:30 | HHI.PR ---
Subjective Remarks The patient appears in not acute distress. Says she does not have any pain in her legs. Denies Nausea vomiting or diarrhea or constipation. Says she feels short of breath. Has no pain at this time. She is not coughing. Has lower extremity edema improved some. Objective Vitals Vital Signs Date Time Temp Pulse Resp B/P (MAP) Pulse Ox O2 Delivery O2 Flow Rate FiO2 05/06/17 08:05 98.0 66 16 118/65 (82) 95 05/06/17 05:29 98.5 64 18 99/51 (67) 94 05/06/17 00:16 98.0 62 18 92/55 (67) 94 05/05/17 22:46 05/05/17 19:31 60 22 141/62 (88) 97 Room Air 05/05/17 19:30 96 05/05/17 17:47 90 18 145/67 (93) 96 05/05/17 17:02 97.7 05/05/17 15:22 58 18 126/70 (88) 96 Room Air 05/05/17 12:12 96.7 57 18 115/61 (79) 96 I/O 05/05/17 05/05/17 05/05/17 05/06/17 05/06/17 05/06/17 07:00 15:00 23:00 07:00 15:00 23:00 Intake Total 200 ml Balance 200 ml Intake Oral 200 ml # Voids 1 7 Result Diagram: 05/06/17 0128 05/06/17 0128 Imaging Last Impressions Lower Extremity Ultrasound 05/05/17 0000 Signed Impressions: Service Date/Time: Friday, May 05, 2017 16:09 - CONCLUSION: There is occlusive thrombus present within left leg varicosities. Roney Louie MD Chest X-Ray 05/05/17 0000 Signed Impressions: Service Date/Time: Friday, May 05, 2017 12:32 - CONCLUSION: Hazy opacity in the left lung possibly related to prior radiation change for reported lung carcinoma. There is some basal atelectasis or scarring and elevated left hemidiaphragm. [id number]-[id number]-[id number] tip in right atrium. Guille Farnsworth MD CT Angiography 05/05/17 0000 Signed Impressions: Service Date/Time: Friday, May 05, 2017 21:42 - CONCLUSION: 1. No pulmonary embolus. 2. Large left hilar mass which may be metastatic or a central primary bronchogenic carcinoma. There is associated lingular bronchus and pulmonary artery obstruction. Mass effect and mild narrowing on/of the main and left main branch pulmonary artery. 3. Patchy nodular left apex upper lobe consolidation, most likely infectious or inflammatory although malignancy not entirely excludable. 4. Small to moderate left pleural effusion. Braden Ferrer MD Objective Remarks GENERAL: This is a well-nourished, well-developed patient, in no apparent distress. CARDIOVASCULAR: Regular rate and rhythm without murmurs, gallops, or rubs. RESPIRATORY: Clear to auscultation. Breath sounds equal bilaterally. No wheezes , rales, or rhonchi. GASTROINTESTINAL: Abdomen soft, non-tender, nondistended. No guarding. MUSCULOSKELETAL: Extremities without clubbing, cyanosis. Bilateral lower extremity pitting edema 3+ up to knees NEUROLOGICAL: Awake and alert. No acute deficits Normal speech. A/P Assessment and Plan Acute on chronic symptomatic chf exacerbation Bilateral LE edema LLE occlusive thrombus in varicosities Medications non compliance- stated she skips lasix sometimes due to her med apt , and has missed them going to chemo apt Suprapubic area skin ulceration/ cellulitis- at hysterectomy scar area Foul smelling urine HTN CAD- massive [place] 23 yrs ago, had [facility] CHF- s/p aicd 35% AFIB- only asa; not on any anticoagulation apart from asa COPD Squamous cell carcinoma of the lung - on chemo - last dose was 3 weeks ago; was supposed to start radiation today Anxiety Hyperthyroidism Plan: lovenox therapeutic dose for afib will ask pt's oncologist for anticoagulation thrombus is within varicosities per report , however, patient is also indicated forceful anticoagulation for her A. fib. Serial cardiac enzymes and EKGs. Patient is diuresing well with 20 mg IV of Lasix that she received in ER. We'll continue Lasix at 20 mg IV every 12 hours. Start patient on levofloxacin 500 mg by mouth every 24 hours for her skin ulcerations/cellulitis at suprapubic/hysterectomy scar area Check UA and urine culture if indicated. Resume home medications. DVT prophylaxis on Lovenox. Discussed Condition With Patient, nurse Ana Cristina Hannon MD May 06, 2017 09:30
[2017-05-06 09:35] LABS: BACTERIA, URINE FEW /hpf; BILIRUBIN, URINE NEG (NEG); BLOOD, URINE LARGE (NEG); GLUCOSE,URINE NEG (NEG); KETONE, URINE NEG (NEG); MUCUS URINE FEW /lpf (OCC); NITRITE,URINE NEG (NEG); SQUAMOUS EPITHELIAL CELL URINE <1 /hpf (0-5); URINE COLOR YELLOW (YELLW/STRAW); URINE LEUKOCYTE ESTERASE NEG (NEG)
--- NOTE | 2017-05-06 19:27 | EKG ---
Date Performed: 05/06/2017 Time Performed: 02:19:30 PTAGE: 71 years EKG: SINUS BRADYCARDIA LOW QRS VOLTAGE IN EXTREMITY LEADS POSSIBLE ANTERIOR MYOCARDIAL INFARCTIO N BORDERLINE ECG PREVIOUS TRACING : 05/05/2017 19.14 Since the previous tracing, no significant change noted DOCTOR: Juliette Simon Interpretating Date/Time 05/06/2017 19:26:05
--- NOTE | 2017-05-06 20:04 | EKG ---
Date Performed: 05/05/2017 Time Performed: 19:14:22 PTAGE: 71 years EKG: Sinus rhythm POSSIBLE LEFT ATRIAL ENLARGEMENT LEFT ANTERIOR FASCICULAR BLOCK ANTEROSEPTAL MYOCARDIAL INFARCTION A BNORMAL ECG PREVIOUS TRACING : 05/05/2017 12.47 Since the previous tracing, no significant change noted DOCTOR: Juliette Simon Interpretating Date/Time 05/06/2017 20:03:42
--- NOTE | 2017-05-06 20:25 | EKG ---
Date Performed: 05/05/2017 Time Performed: 12:47:19 PTAGE: 71 years EKG: SINUS BRADYCARDIA POSSIBLE RIGHT ATRIAL ENLARGEMENT LEFT ANTERIOR FASCICULAR BLOCK ANTEROSE PTAL MYOCARDIAL INFARCTION ABNORMAL ECG NO PREVIOUS TRACING DOCTOR: Juliette Simon Interpretating Date/Time 05/06/2017 20:23:40
[2017-05-06] MEDS ORDERED: NON-FORMULARY DRUG (Rosuvastatin 10 MG) PO SCH (21:00)
[2017-05-06] MEDS: ATORVASTATIN 20 MG TAB PO SCH (22:35)
[2017-05-07] VITALS (10 sets, daily range): BP systolic 103–124; BP diastolic 51–77; PULSE 62–69; RESP 16–18; TEMP 97.4–98.3; O2SAT 93–96
[2017-05-07] MEDS: LEVOFLOXACIN 500 MG TAB PO SCH (00:18)
--- NOTE | 2017-05-07 01:05 | MB ---
cc: Scotty Wong MD DATE OF CONSULT: 05/06/2017 REASON FOR CONSULTATION: Consult requested by hospitalist for follow up of non-small cell lung cancer. HISTORY OF PRESENT ILLNESS: Manuela is a pleasant 71-year-old female. She has a history of non-small cell lung cancer stage III. She was advised to have combined concurrent radiation and chemotherapy, however, she had declined radiation therapy due to the AICD placed on the left side. She was treated with chemotherapy, carboplatin and Taxol x 3 cycles. The Taxol was stopped due to the peripheral neuropathy. Then she was started on carboplatin and Gemzar on 03/31. She was unable to tolerate that due to the severe myelosuppression. The patient was referred back to Dr. Enciso for reconsideration of radiation therapy. The patient had agreed for radiation. She has not started radiation as yet. The patient came into the office yesterday for her chemotherapy. However, she was complaining of severe swelling of both lower legs. She was also complaining of shortness of breath. She looks jaundiced. Chemotherapy was not given and she was referred to the emergency room for further evaluation. The patient now has been admitted to the hospital for exacerbation of congestive heart failure. Her liver enzymes are elevated. I have been asked to see the patient for further evaluation. Doppler US shows thrombosis in varicose vein. The patient is not feeling well. She had received Lasix and the swelling in her legs is improving. She is waiting for autocad technician to see her. The rest of the review of systems is negative. PAST MEDICAL HISTORY: Non-small cell lung cancer, anxiety disorder, atrial fibrillation, COPD, congestive heart failure, coronary artery disease, status post ND, status post coronary artery bypass surgery, depression, gastroesophageal reflux disease, hypercholesterolemia, hypothyroidism, history of stroke. PAST SURGICAL HISTORY: Cardioversion, colonoscopy, defibrillator, coronary artery bypass surgery, complete hysterectomy, Infus[place]ort. ALLERGIES: CODEINE, PAXIL AND PENICILLIN. MEDICATIONS: Amiodarone, aspirin, Lasix, nebulizer, lisinopril, metoprolol, omeprazole, Paxil, propylthiouracil. FAMILY HISTORY: Mother is alive, father , the cause of is unknown to her. She has 5 brothers, no sisters, 2 sons and 1 daughter. One of the brothers from a bike accident. SOCIAL HISTORY: The patient is . She stopped smoking a year ago. She used to smoke 2-1/2 packs a day for 30 years. She does not drink alcohol. PHYSICAL EXAMINATION: GENERAL: This is a well-developed, well-nourished ill appearing white female in on apparent distress. VITAL SIGNS: Her temperature 98, heart rate is 66, blood pressure 118/65, O2 saturation 95%. HEENT: PERRLA, EOMI, anicteric, no oral lesions noted. NECK: No lymphadenopathy noted. LUNGS: Decreased breath sounds on both sides. HEART: Regular rate and rhythm. ABDOMEN: Soft, nontender. EXTREMITIES: Edema noted up to the knees. NEUROLOGIC: Awake, alert and oriented x 3. SKIN: No significant lesions are noted. ASSESSMENT: 1. Non-small cell lung cancer, status post chemotherapy. 2. Severe swelling of both lower legs with elevated liver enzymes. This is most likely due exacerbation of congestive heart failure. 3. Elevated liver enzymes, need to rule out for liver metastasis. 4. Thrombosis in the varicose vein which is superficial vein and not deep vein thrombosis. PLAN: I have reviewed her available records and I have discussed with the patient regarding her blood test results from today which are white count 6.6, hemoglobin 12.7, platelet count is 52. She still has significant thrombocytopenia which is from the Gemzar chemotherapy. She is unable to tolerate the Gemzar. I also discussed with her other lab results. Her total bilirubin is high at 2.5. AST is 94, ALT is 74. Alkaline phosphatase is high. Clearly her liver enzymes are elevated and she is jaundiced. My recommendation is to get the CAT scan of the abdomen and pelvis with IV contrast for further evaluation of the elevated liver enzymes. This could be passive congestive hepatic dysfunction. She has been getting Lasix. It appears the patient has congestive heart failure. She has significant swelling of both lower legs. My recommendation is to consult her autocad technician, Dr. Franco for further evaluation. I will also get the hepatitis profile and will make further recommendations based on her hospital stay. I have stopped Lovenox and Aspirin due to severe thrombocytopenia. She does not have DVT. Thrombosis is in the varicose vein. Thank you for asking my opinion. MD HESHAM Jimenez/rt , 11:24 PM , 01:05 AM [email or web address]
[2017-05-07] MEDS ORDERED: IOHEXOL 350 MG/ML 10 ML VIAL (for RAD DIAG) IVCONTRAST ONE (01:21)
--- NOTE | 2017-05-07 01:29 | RADRPT ---
EXAM DATE/TIME: 05/07/2017 00:52 [facility] COMPARISON: No previous studies available for comparison. INDICATIONS : Abdominal pain, jaundice. IV CONTRAST: 75 cc Omnipaque 350 (iohexol) IV ORAL CONTRAST: No oral contrast ingested. RADIATION DOSE: 7.12 CTDIvol (mGy) MEDICAL HISTORY : Gastroesophageal reflux disease. Carcinoma, lung. Hypertension. SURGICAL HISTORY : Hysterectomy. CABG ENCOUNTER: Initial ACUITY: 1 day PAIN SCALE: 5/10 LOCATION: Abdomen. TECHNIQUE: Volumetric scanning of the abdomen and pelvis was performed. Using automated exposure control and ad justment of the mA and/or kV according to patient size, radiation dose was kept as low as reasonably achievable to obtain optimal diagnostic quality images. DICOM format image data is available electro nically for review and comparison. FINDINGS: LOWER LUNGS: A small left pleural effusion. Cardiomegaly. Left-sided pacing device. LIVER: Homogeneous density without lesion. There is no dilation of the biliary tree. No calcified gallston es. SPLEEN: Normal size without lesion. PANCREAS: Within normal limits. KIDNEYS: Normal in size and shape. There is no mass, stone or hydronephrosis. ADRENAL GLANDS: Within normal limits. VASCULAR: There is no aortic aneurysm. BOWEL/MESENTERY: The stomach, small bowel, and colon demonstrate no acute abnormality. There is no free intraperitone al air. A trace amount of ascitic fluid deep within the pelvis. ABDOMINAL WALL: Within normal limits. RETROPERITONEUM: There is no lymphadenopathy. BLADDER: No wall thickening or mass. REPRODUCTIVE: Within normal limits. INGUINAL: There is no lymphadenopathy or hernia. MUSCULOSKELETAL: Within normal limits for patient age. CONCLUSION: 1. No acute adenopathy. 2. Small left effusion. 3. Trace ascites. Evgeny العراقي Jr., MD on May 07, 2017 at 1:25 Board Certified Radiologist. This report was verified electronically.
[2017-05-07] MEDS: NON-FORMULARY DRUG (Paroxetine (Paxil) 20 MG) PO SCH (09:00)
[2017-05-07 09:32] LABS: AUTOMATED NEUTROPHIL # 4.4 TH/MM3 (1.8-7.7); BASOPHIL % 0.2 % (0.0-2.0); EOSINOPHIL % 0.1 % (0.0-4.0); HEMATOCRIT 38.8 % (35.0-46.0); HEMOGLOBIN 12.8 GM/DL (11.6-15.3); LYMPH % 10.8 % (9.0-44.0); LYMPHOCYTE # 0.6 TH/MM3 (1.0-4.8); MEAN CELL VOLUME 111.7 FL (80.0-100.0); MEAN CORPUSCULAR HEMOGLOBIN 36.9 PG (27.0-34.0); MEAN CORPUSCULAR HGB CONC 33.1 % (32.0-36.0); MEAN PLATELET VOLUME 11.6 FL (7.0-11.0); MONO % 10.8 % (0.0-8.0); MONOCYTE # 0.6 TH/MM3 (0-0.9); NEUT % 78.1 % (16.0-70.0); PLATELET COUNT 42 TH/MM3 (150-450); RED BLOOD COUNT 3.47 MIL/MM3 (4.00-5.30); RED CELL DISTRIBUTION WIDTH 21.1 % (11.6-17.2); WHITE BLOOD COUNT 5.7 TH/MM3 (4.0-11.0)
[2017-05-07] MEDS: MULTIVITAMINS/MINERALS THERAPEUTIC TAB PO SCH (09:36)
[2017-05-07] MEDS: PROPYLTHIOURACIL 50 MG TAB PO SCH ×2 (09:36→21:53)
[2017-05-07] MEDS: FUROSEMIDE 20 MG/2 ML VIAL IV PUSH SCH ×2 (09:36→18:15)
[2017-05-07] MEDS: METOPROLOL TARTRATE 25 MG TAB PO SCH ×2 (09:36→21:53)
[2017-05-07] MEDS: LISINOPRIL 5 MG TAB PO SCH (09:36)
[2017-05-07] MEDS: PANTOPRAZOLE SOD 40 MG DELAYED RELEASE TAB PO SCH (09:36)
[2017-05-07] MEDS: POTASSIUM CHLORIDE 10 MEQ CAP PO SCH ×2 (09:36→21:53)
[2017-05-07] MEDS: SODIUM CHLORIDE 0.9% FLUSH 10 ML FLUSH IV FLUSH SCH ×2 (09:37→21:53)
[2017-05-07 09:52] LABS: ALBUMIN 2.6 GM/DL (3.4-5.0); AST (GOT) 76 U/L (15-37); BLOOD UREA NITROGEN 15 MG/DL (7-18); CALCIUM 8.4 MG/DL (8.5-10.1); CHLORIDE 98 MEQ/L (98-107); CREATININE 0.79 MG/DL (0.50-1.00); GLOMERULAR FILTRATION RATE 72 ML/MIN (>89); GLUCOSE,RANDOM 104 MG/DL (74-106); SODIUM (NA) 136 MEQ/L (136-145)
[2017-05-07 09:53] LABS: ALT (GPT) 71 U/L (10-53)
[2017-05-07 09:55] LABS: ALKALINE PHOSPHATASE 277 U/L (45-117); TOTAL BILIRUBIN ADULT 1.9 MG/DL (0.2-1.0); TOTAL PROTEIN 6.1 GM/DL (6.4-8.2)
--- NOTE | 2017-05-07 10:13 | HHI.PR ---
Subjective Remarks Still with shortness of breath. Still with lower extremity edema improving. Feels weak. No nausea or vomiting no diarrhea constipation. Has decreased appetite. No pain. Objective Vitals Vital Signs Date Time Temp Pulse Resp B/P (MAP) Pulse Ox O2 Delivery O2 Flow Rate FiO2 05/07/17 08:15 97.5 63 16 124/77 (93) 93 05/07/17 07:12 64 05/07/17 03:52 97.9 65 18 106/51 (69) 95 05/07/17 00:30 69 05/06/17 23:54 97.8 69 18 102/57 (72) 95 05/06/17 20:35 65 05/06/17 20:00 98 05/06/17 19:44 97.9 66 18 108/55 (72) 95 05/06/17 16:53 66 05/06/17 14:37 98.6 67 18 109/56 (73) 95 05/06/17 11:42 97.6 62 16 116/84 (95) 96 I/O 05/06/17 05/06/17 05/06/17 05/07/17 05/07/17 05/07/17 07:00 15:00 23:00 07:00 15:00 23:00 Intake Total 250 ml Output Total 500 ml Balance -250 ml Intake Oral 250 ml Output Urine Total 500 ml # Voids 7 Result Diagram: 05/07/17 0844 05/07/17 0838 Imaging Last Impressions Abdomen/Pelvis CT 05/06/17 0000 Signed Impressions: Service Date/Time: Sunday, May 07, 2017 00:52 - CONCLUSION: 1. No acute adenopathy. 2. Small left effusion. 3. Trace ascites. Evgeny العراقي Jr., MD Lower Extremity Ultrasound 05/05/17 0000 Signed Impressions: Service Date/Time: Friday, May 05, 2017 16:09 - CONCLUSION: There is occlusive thrombus present within left leg varicosities. Roney Louie MD Chest X-Ray 05/05/17 0000 Signed Impressions: Service Date/Time: Friday, May 05, 2017 12:32 - CONCLUSION: Hazy opacity in the left lung possibly related to prior radiation change for reported lung carcinoma. There is some basal atelectasis or scarring and elevated left hemidiaphragm. [id number] tip in right atrium. Guille Farnsworth MD CT Angiography 05/05/17 0000 Signed Impressions: Service Date/Time: Friday, May 05, 2017 21:42 - CONCLUSION: 1. No pulmonary embolus. 2. Large left hilar mass which may be metastatic or a central primary bronchogenic carcinoma. There is associated lingular bronchus and pulmonary artery obstruction. Mass effect and mild narrowing on/of the main and left main branch pulmonary artery. 3. Patchy nodular left apex upper lobe consolidation, most likely infectious or inflammatory although malignancy not entirely excludable. 4. Small to moderate left pleural effusion. Braden Ferrer MD Objective Remarks GENERAL: This is a well-nourished, well-developed patient, in no apparent distress. CARDIOVASCULAR: Regular rate and rhythm without murmurs, gallops, or rubs. RESPIRATORY: Clear to auscultation. Breath sounds equal bilaterally. No wheezes , rales, or rhonchi. GASTROINTESTINAL: Abdomen soft, non-tender, nondistended. No guarding. MUSCULOSKELETAL: Extremities without clubbing, cyanosis. Bilateral lower extremity pitting edema 3+ up to knees NEUROLOGICAL: Awake and alert. No acute deficits Normal speech. A/P Assessment and Plan Acute on chronic symptomatic chf exacerbation Bilateral LE edema LLE occlusive thrombus in varicosities Medications non compliance- stated she skips lasix sometimes due to her med apt , and has missed them going to chemo apt Suprapubic area skin ulceration/ cellulitis- at hysterectomy scar area Foul smelling urine HTN CAD- massive [place] 23 yrs ago, had cabg CHF- s/p aicd 35% AFIB- only asa; not on any anticoagulation apart from asa COPD Squamous cell carcinoma of the lung - on chemo - last dose was 3 weeks ago; was supposed to start radiation today Anxiety Hyperthyroidism Plan: lovenox therapeutic dose for afib will ask pt's oncologist for anticoagulation thrombus is within varicosities per report , however, patient is also indicated forceful anticoagulation for her A. fib. Serial cardiac enzymes and EKGs. Patient is diuresing well with 20 mg IV of Lasix that she received in ER. We'll continue Lasix at 20 mg IV every 12 hours. Start patient on levofloxacin 500 mg by mouth every 24 hours for her skin ulcerations/cellulitis at suprapubic/hysterectomy scar area Check UA and urine culture if indicated. Resume home medications. DVT prophylaxis on Lovenox. Discussed Condition With Patient, nurse Possible discharge tomorrow if improved and cleared by consultants Ana Cristina Hannon MD May 07, 2017 10:13
[2017-05-07] MEDS ORDERED: POTASSIUM CHLORIDE 10 MEQ CONTROLLED RELEASE TAB PO ONE (10:15)
--- NOTE | 2017-05-07 11:47 | MB ---
cc: Dain Avalos DO DATE OF CONSULT: 05/06/2017 REASON FOR CONSULTATION: Congestive heart failure. HISTORY OF PRESENT ILLNESS: Manuela Thompson is a pleasant 71-year-old female who presented to [facility] Emergency Room on 05/06/2017 due to lower extremity swelling. She went to her chemotherapy and it was noted that she had lower extremity swelling by her oncologist, Dr. Wong. The swelling had been going on for the past few days. Her oncologist sent her to the hospital for further evaluation. She also notes that she has been more short of breath. She states that this has been getting worse over the past week. She was found to be in acute systolic heart failure. In discussing with her, occasionally, she will not take her Lasix on days when she has to go to chemotherapy, due to the increased urination that she has. I was also asked to evaluate her for atrial fibrillation. In reviewing her chart, it was found ____ sinus rhythm. Evaluating her outpatient note by Dr. Moran, there is no information about atrial fibrillation. I also reviewed multiple pacemaker checks from the office, which show no mode switching for atrial fibrillation. PAST MEDICAL HISTORY: 1. Hypertension. 2. Coronary artery disease with a history of myocardial infarction. 3. Primary dilated cardiomyopathy with an ejection fraction of 35%. 4. COPD. 5. Non-small cell lung cancer, on chemotherapy and supposed to be undergoing radiation therapy. 6. Anxiety. 7. Hyperparathyroidism. 8. Multiple AICD shocks around 2 months ago (patient was found to have hyperthyroidism and appeared to have sinus tachycardia to the point that she was getting shocked). PAST SURGICAL HISTORY: 1. AICD placement around 7 years ago. This was replaced [address] Kam due to being at [facility]. 2. CABG around 23 years ago. 3. Hysterectomy. 4. Tonsillectomy. 5. Venous stripping. 6. EGD/colonoscopy. ALLERGIES: 1. CODEINE. 2. PAROXETINE. 3. PENICILLIN. MEDICATIONS: 1. Amiodarone 200 mg daily. 2. Crestor 10 mg every night. 3. Metoprolol tartrate 25 mg b.i.d. 4. Lisinopril 5 mg daily. 5. Aspirin 325 mg daily. 6. Paxil 20 mg daily. 7. Potassium 10 milliequivalents b.i.d. 8. Lasix 20 mg daily. 9. Omeprazole 40 mg daily. 10. Propylthiouracil 100 mg b.i.d. FAMILY HISTORY: Father had liver disease, diabetes and coronary artery disease. Daughter and son have hypertension. SOCIAL HISTORY: The patient previously smoked, but quit in October 2016. Denies alcohol or drug abuse. REVIEW OF SYSTEMS: Fourteen systems were reviewed, including osteopathic. Pertinent positives and negatives above, otherwise, negative. PHYSICAL EXAMINATION: Vital signs: Temperature 98.6, heart rate 67, blood pressure 109/56, respirations 18, pulse ox 95% in room air. General: The patient appears older than stated age. Alert, awake and oriented x3. No acute distress. Extraocular muscles intact. Mucous membranes moist. Neck: Is supple. No JVD at 45 degrees. Cardiovascular: No carotid bruits heard bilaterally. Cardiac upstroke is brisk in nature. Heart is regular rate and rhythm, positive for some secondary ____. No murmurs, gallops or rubs. Pulmonary: Lungs are clear to auscultation bilaterally. No wheezes, rales or rhonchi. Abdomen: Is soft, nontender, nondistended. No organomegaly noted. Extremities: Show 2-plus pitting edema bilaterally. Neurological: No focal deficits. Skin: Warm, dry and intact. Osteopathically, no kyphoscoliosis, lordosis or paraspinal tender points. LABORATORY WORK: Hemoglobin 12.7, hematocrit 38.7, platelets 52. Potassium 3.7, BUN 15, creatinine 1.06. Troponin 0.17, decreasing to 0.12. BNP 922. ELECTROCARDIOGRAM: (05/06/2017 at 0219): Sinus bradycardia, poor R-wave progression, possible old anterior infarct. IMPRESSIONS: 1. Acute systolic heart failure, due to noncompliance. 2. Non-small cell lung cancer, on chemotherapy with a plan to start radiation therapy. 3. Hyperthyroidism. 4. Previous AICD firing, due to sinus tachycardia, secondary to sinus tachycardia. 5. Primary dilated cardiomyopathy. 6. Coronary artery disease with a history of myocardial infarction. 7. Elevated troponin, most likely type 2 in nature. 8. Thrombocytopenia, due to chemotherapy. RECOMMENDATIONS: 1. Ms. Thompson appears to have acute systolic heart failure due to noncompliance with Lasix. She will be continued on Lasix IV here. 2. As far as the elevated troponin, this is most likely type 2, due to her overall heart failure. Due to her thrombocytopenia, which will continue with chemotherapy, she is not an invasive ischemic evaluation candidate. We will continue her on medical management. 3. I was asked to evaluate for a history of atrial fibrillation but, at this time, I find no evidence that she has atrial fibrillation. Office notes were reviewed from Dr. Kam, which do not mention it. I also reviewed multiple pacemaker interrogations that showed no mode switching or atrial fibrillation. At this time, as I have no evidence of atrial fibrillation, would not treat as such. Even if she had atrial fibrillation, I would find it difficult to place her on anticoagulation, due to her thrombocytopenia with platelets anywhere from 45 to 50,000. 4. She did have previous episodes around 2 months ago with multiple shocks, felt to be due to sinus tachycardia and not atrial fibrillation. This is due to her hyperthyroidism and this has since been treated. 5. Upon discharge, she can follow up with Dr. Kam as previously scheduled. Thank you for allowing me to see Manuela Thompson. If there are any questions, please do not hesitate to call. DO ERIK Dang/KRISTY , 11:32 PM , 01:18 AM
--- NOTE | 2017-05-07 14:14 | PD.ONC.PN ---
Subjective Subjective Remarks less SOB, Less leg edema. Objective Data Date Time Temp Pulse Resp B/P (MAP) Pulse Ox O2 Delivery O2 Flow Rate FiO2 05/07/17 11:50 64 05/07/17 11:28 98.3 65 16 113/58 (76) 95 05/07/17 08:15 97.5 63 16 124/77 (93) 93 05/07/17 07:12 64 05/07/17 03:52 97.9 65 18 106/51 (69) 95 05/07/17 00:30 69 05/06/17 23:54 97.8 69 18 102/57 (72) 95 05/06/17 20:35 65 05/06/17 20:00 98 05/06/17 19:44 97.9 66 18 108/55 (72) 95 05/06/17 16:53 66 05/06/17 14:37 98.6 67 18 109/56 (73) 95 Result Diagram: 05/07/17 0844 05/07/17 0838 Laboratory Results Laboratory Tests Test 05/07/17 08:38 05/07/17 08:44 Blood Urea Nitrogen 15 MG/DL Creatinine 0.79 MG/DL Random Glucose 104 MG/DL Total Protein 6.1 GM/DL Albumin 2.6 GM/DL Calcium Level 8.4 MG/DL Alkaline Phosphatase 277 U/L Aspartate Amino Transf (AST/SGOT) 76 U/L Alanine Aminotransferase (ALT/SGPT) 71 U/L Total Bilirubin 1.9 MG/DL Sodium Level 136 MEQ/L Potassium Level 3.1 MEQ/L Chloride Level 98 MEQ/L Carbon Dioxide Level 30.0 MEQ/L Anion Gap 8 MEQ/L Estimat Glomerular Filtration Rate 72 ML/MIN White Blood Count 5.7 TH/MM3 Red Blood Count 3.47 MIL/MM3 Hemoglobin 12.8 GM/DL Hematocrit 38.8 % Mean Corpuscular Volume 111.7 FL Mean Corpuscular Hemoglobin 36.9 PG Mean Corpuscular Hemoglobin Concent 33.1 % Red Cell Distribution Width 21.1 % Platelet Count 42 TH/MM3 Mean Platelet Volume 11.6 FL Neutrophils (%) (Auto) 78.1 % Lymphocytes (%) (Auto) 10.8 % Monocytes (%) (Auto) 10.8 % Eosinophils (%) (Auto) 0.1 % Basophils (%) (Auto) 0.2 % Neutrophils # (Auto) 4.4 TH/MM3 Lymphocytes # (Auto) 0.6 TH/MM3 Monocytes # (Auto) 0.6 TH/MM3 Eosinophils # (Auto) 0.0 TH/MM3 Basophils # (Auto) 0.0 TH/MM3 CBC Comment AUTO DIFF Differential Comment AUTO DIFF CONFIRMED Platelet Estimate LOW Platelet Morphology Comment ENLARGED B-Type Natriuretic Peptide 749 PG/ML Culture Results Microbiology Date/Time Source Procedure Growth Status 05/06/17 08:30 Urine Clean Catch Urine Culture - Final 10-50,000 CFU/ML MIXED GRAM POSITIVE ... Complete Administered Medications Medications (Trade) Dose Ordered Sig/Daniel Route PRN Reason Start Time Stop Time Status Last Admin Dose Admin Sodium Chloride (NS Flush) 2 ml BID IV FLUSH 05/05/17 21:00 05/07/17 09:37 Levofloxacin (Levaquin) 500 mg Q24H PO 05/06/17 00:00 05/07/17 00:18 Lisinopril (Prinivil) 5 mg DAILY PO 05/06/17 09:00 05/07/17 09:36 Metoprolol Tartrate (Lopressor) 25 mg BID PO 05/06/17 09:00 05/07/17 09:36 Multivitamins/ Minerals Therapeutic (Theragran M Tab) 1 tab DAILY PO 05/06/17 09:00 05/07/17 09:36 Potassium Chloride (KCl) 10 meq BID PO 05/06/17 09:00 05/07/17 09:36 Propylthiouracil (Ptu) 100 mg Q12HR PO 05/06/17 09:00 05/07/17 09:36 Furosemide (Lasix Inj) 20 mg BID@ IV PUSH 05/06/17 09:00 05/07/17 09:36 Pantoprazole Sodium (Protonix) 40 mg DAILY PO 05/06/17 09:00 05/07/17 09:36 Atorvastatin Calcium (Lipitor) 20 mg HS PO 05/06/17 21:00 05/06/17 22:35 Objective Remarks GENERAL: Well-nourished, well-developed patient. SKIN: Warm and dry. HEAD: Normocephalic. EYES: No scleral icterus. No injection or drainage. NECK: Supple, trachea midline. No JVD or lymphadenopathy. LYMPHATIC: No adenopathy. CARDIOVASCULAR: Regular rate and rhythm without murmurs. RESPIRATORY: Breath sounds equal bilaterally. No accessory muscle use. GASTROINTESTINAL: Abdomen soft, non-tender, nondistended. EXTREMITIES: ++ edema. NEUROLOGICAL: No obvious focal deficit. Awake, alert, and oriented x3. Assessment/Plan Problem List: (1) CHF (congestive heart failure) ICD Codes: I50.9 - Heart failure, unspecified Status: Acute Plan: Has AICD On Lasix Improving. CT A/P = negative. Liver enzymes are high most likely due to passive hepatic congestion from CHF. (2) Lung cancer ICD Codes: C34.90 - Malignant neoplasm of unspecified part of unspecified bronchus or lung Plan: s/p Chemo. XRT and Chemo on hold due to low plat. CT A/P = negative for mets. Liver enzymes are high most likely due to passive hepatic congestion from CHF. (3) Thrombosis ICD Codes: I82.90 - Acute embolism and thrombosis of unspecified vein Status: Acute Plan: This is superficial thrombosis. No reason for anticoagulation. Lovenox is contraindicated due to plat ~50K. Hold ASA due to low plat. Pt does not have afib. This needs to be corrected in the medical records. D/W silk screen repairer Dr Avalos. No indication for anticoagulation. Pt is cleared for d/c from my standpoint. Problem Qualifiers (1) CHF (congestive heart failure): Qualified Codes: I50.9 - Heart failure, unspecified Sorathia,Gage Williamson MD May 07, 2017 14:14
--- NOTE | 2017-05-07 15:14 | HHI.DS ---
Discharge Summary Admission Date May 06, 2017 at 00:09 Discharge Date: May 08, 2017 Admitting Diagnosis CHF (1) CHF (congestive heart failure) ICD Code: I50.9 - Heart failure, unspecified Status: Acute (2) Thrombosis ICD Code: I82.90 - Acute embolism and thrombosis of unspecified vein Status: Acute (3) Lung cancer ICD Code: C34.90 - Malignant neoplasm of unspecified part of unspecified bronchus or lung Procedures none Brief History - From Admission History from patient, and review of medical records. Patient reported that she went to her chemotherapy this morning and was complaining of her bilateral lower extremity swelling to her oncologist. This swelling has been going on for the past 4 days. There for the oncologist has sent her to come to hospital. Patient reports that she also has shortness of breath. But again stated this is chronic and is because of anxiety. She then stated that last week though, her cough was getting worse. Denies any chest pains or palpitations. Patient was discharged from [facility] about 2 months ago. She denies any fever. Denies cough. Reports somewhat chronic cough though. Denies any vomiting. She did have nausea with chemotherapy. Also reports of occasional specks of blood in her cough. Denies any black or red stool. Denies blood in her urine. Denies any urinary burning or pain on urination. Reports she does have occasional diarrhea/constipation alternating. Again this is chronic. CBC/BMP: 05/07/17 0844 05/07/17 0838 Significant Findings Laboratory Tests Test 05/05/17 15:50 05/05/17 18:35 05/05/17 19:25 05/05/17 19:35 Albumin 2.9 GM/DL (3.4-5.0) Alkaline Phosphatase 321 U/L (45-117) Aspartate Amino Transf (AST/SGOT) 104 U/L (15-37) Alanine Aminotransferase (ALT/SGPT) 84 U/L (10-53) Total Bilirubin 2.8 MG/DL (0.2-1.0) Sodium Level 134 MEQ/L (136-145) Estimat Glomerular Filtration Rate 62 ML/MIN (>89) Total Creatine Kinase 523 U/L (26-192) Creatine Kinase MB 10.4 NG/ML (0.5-3.6) Troponin I 0.17 NG/ML (0.02-0.05) 0.13 NG/ML (0.02-0.05) B-Type Natriuretic Peptide 922 PG/ML (0-100) Mean Corpuscular Volume 114.1 FL (80.0-100.0) Mean Corpuscular Hemoglobin 37.3 PG (27.0-34.0) Red Cell Distribution Width 21.2 % (11.6-17.2) Platelet Count 49 TH/MM3 (150-450) Neutrophils (%) (Auto) 82.2 % (16.0-70.0) Lymphocytes # (Auto) 0.7 TH/MM3 (1.0-4.8) Prothrombin Time 18.4 SEC (9.8-11.6) Test 05/06/17 01:28 05/06/17 08:30 05/07/17 08:38 05/07/17 08:44 Red Blood Count 3.38 MIL/MM3 (4.00-5.30) 3.47 MIL/MM3 (4.00-5.30) Mean Corpuscular Volume 114.5 FL (80.0-100.0) 111.7 FL (80.0-100.0) Mean Corpuscular Hemoglobin 37.6 PG (27.0-34.0) 36.9 PG (27.0-34.0) Red Cell Distribution Width 21.8 % (11.6-17.2) 21.1 % (11.6-17.2) Platelet Count 52 TH/MM3 (150-450) 42 TH/MM3 (150-450) Mean Platelet Volume 11.1 FL (7.0-11.0) 11.6 FL (7.0-11.0) Neutrophils (%) (Auto) 84.5 % (16.0-70.0) 78.1 % (16.0-70.0) Lymphocytes (%) (Auto) 7.6 % (9.0-44.0) Lymphocytes # (Auto) 0.5 TH/MM3 (1.0-4.8) 0.6 TH/MM3 (1.0-4.8) Platelet Estimate LOW (NORMAL) LOW (NORMAL) Ovalocytes 1+ (NORMAL) Acanthocytes OCC (NORMAL) Creatinine 1.06 MG/DL (0.50-1.00) Random Glucose 121 MG/DL (74-106) Total Protein 5.9 GM/DL (6.4-8.2) 6.1 GM/DL (6.4-8.2) Albumin 2.4 GM/DL (3.4-5.0) 2.6 GM/DL (3.4-5.0) Calcium Level 8.2 MG/DL (8.5-10.1) 8.4 MG/DL (8.5-10.1) Alkaline Phosphatase 260 U/L (45-117) 277 U/L (45-117) Aspartate Amino Transf (AST/SGOT) 94 U/L (15-37) 76 U/L (15-37) Alanine Aminotransferase (ALT/SGPT) 74 U/L (10-53) 71 U/L (10-53) Total Bilirubin 2.5 MG/DL (0.2-1.0) 1.9 MG/DL (0.2-1.0) Estimat Glomerular Filtration Rate 51 ML/MIN (>89) 72 ML/MIN (>89) Troponin I 0.12 NG/ML (0.02-0.05) Urine Turbidity HAZY (CLEAR) Urine Protein 100 mg/dL (NEG-TRACE) Urine Occult Blood LARGE (NEG) Urine WBC 11 /hpf (0-5) Urine Bacteria FEW /hpf (NONE) Urine Mucus FEW /lpf (OCC) Potassium Level 3.1 MEQ/L (3.5-5.1) Monocytes (%) (Auto) 10.8 % (0.0-8.0) Platelet Morphology Comment ENLARGED (NORMAL) B-Type Natriuretic Peptide 749 PG/ML (0-100) Imaging Last Impressions Abdomen/Pelvis CT 05/06/17 0000 Signed Impressions: Service Date/Time: Sunday, May 07, 2017 00:52 - CONCLUSION: 1. No acute adenopathy. 2. Small left effusion. 3. Trace ascites. Evgeny العراقي Jr., MD Lower Extremity Ultrasound 05/05/17 0000 Signed Impressions: Service Date/Time: Friday, May 05, 2017 16:09 - CONCLUSION: There is occlusive thrombus present within left leg varicosities. Roney Louie MD Chest X-Ray 05/05/17 0000 Signed Impressions: Service Date/Time: Friday, May 05, 2017 12:32 - CONCLUSION: Hazy opacity in the left lung possibly related to prior radiation change for reported lung carcinoma. There is some basal atelectasis or scarring and elevated left hemidiaphragm. [id number] tip in right atrium. Guille Farnsworth MD CT Angiography 05/05/17 0000 Signed Impressions: Service Date/Time: Friday, May 05, 2017 21:42 - CONCLUSION: 1. No pulmonary embolus. 2. Large left hilar mass which may be metastatic or a central primary bronchogenic carcinoma. There is associated lingular bronchus and pulmonary artery obstruction. Mass effect and mild narrowing on/of the main and left main branch pulmonary artery. 3. Patchy nodular left apex upper lobe consolidation, most likely infectious or inflammatory although malignancy not entirely excludable. 4. Small to moderate left pleural effusion. Braden Ferrer MD PE at Discharge GENERAL: This is a well-nourished, well-developed patient, in no apparent distress. CARDIOVASCULAR: Regular rate and rhythm without murmurs, gallops, or rubs. RESPIRATORY: Clear to auscultation. Breath sounds equal bilaterally. No wheezes , rales, or rhonchi. GASTROINTESTINAL: Abdomen soft, non-tender, nondistended. No guarding. MUSCULOSKELETAL: Extremities without clubbing, cyanosis. Bilateral lower extremity pitting edema 3+ up to knees NEUROLOGICAL: Awake and alert. No acute deficits Normal speech. Pt update on day of discharge Feels better. LE edema improved. No n/v/d/c. Denies chest pain. SOB improved . No palpitations. Says she follows with Dr Moran cardiology Feel improved Hospital Course Acute on chronic symptomatic systolic chf exacerbation with ef 35% Bilateral LE edema LLE occlusive thrombus in varicosities Medications non compliance- stated she skips lasix sometimes due to her med apt , and has missed them going to chemo apt Suprapubic area skin ulceration/ cellulitis- at hysterectomy scar area Foul smelling urine HTN CAD- massive [place] 23 yrs ago, had cabg CHF- s/p aicd 35% AFIB- only asa; not on any anticoagulation apart from asa COPD Squamous cell carcinoma of the lung - on chemo - last dose was 3 weeks ago; was supposed to start radiation today Anxiety Hyperthyroidism Plan: lovenox therapeutic dose for afib will ask pt's oncologist for anticoagulation thrombus is within varicosities per report , however, patient is also indicated forceful anticoagulation for her A. fib. Serial cardiac enzymes and EKGs. Patient is diuresing well with 20 mg IV of Lasix that she received in ER. We'll continue Lasix at 20 mg IV every 12 hours. Start patient on levofloxacin 500 mg by mouth every 24 hours for her skin ulcerations/cellulitis at suprapubic/hysterectomy scar area Check UA and urine culture if indicated. Resume home medications. DVT prophylaxis on Lovenox. Discussed Condition With Patient, nurse Patient improved. Discharge home with home health in stable condition to follow up as OP with PCP and consultants Pt Condition on Discharge: Stable Discharge Disposition: Discharge Home Discharge Time: > 30 minutes Discharge Instructions DIET: Follow Instructions for: Heart Healthy Diet Activities you can perform: Regular-No Restrictions Follow up Referrals: Cardiology - 2 Weeks with Serena Moran MD Oncology - 1 Week PCP Follow-up - 2-3 Days New Medications: Levofloxacin (Levaquin) 500 Mg Tablet 500 MG PO Q24H for infection , #5 MG Continued Medications: Amiodarone (Amiodarone) 200 Mg Tab 200 MG PO DAILY for Regulate Heart Beat, #30 TAB 0 Refills Aspirin (Aspirin) 325 Mg Tab 325 MG PO DAILY, #30 TAB 0 Refills Furosemide (Furosemide) 20 Mg Tab 20 MG PO DAILY, #30 TAB 0 Refills Lisinopril (Lisinopril) 5 Mg Tab 5 MG PO DAILY for Blood Pressure Management, #30 TAB 0 Refills Metoprolol Tartrate (Metoprolol Tartrate) 25 Mg Tab 25 MG PO BID, #60 TAB 0 Refills Multiple Vitamins W/ Minerals (Centrum) 1 Chew 1 TAB CHEW DAILY for Nutritional Supplement, TAB 0 Refills Omeprazole (Omeprazole) 40 Mg Cap 40 MG PO DAILY, #30 CAP 0 Refills Paroxetine (Paxil) 10 Mg Tab 20 MG PO DAILY, #30 TAB 0 Refills Potassium Chloride ER (Potassium Chloride ER) 10 Meq Cap 10 MEQ PO BID for Electrolyte Replacement, #60 CAP 0 Refills Propylthiouracil (Propylthiouracil) 50 Mg Tab 100 MG PO Q12HR for Thyroid, #60 TAB 0 Refills Rosuvastatin (Rosuvastatin) 10 Mg Tab 10 MG PO HS for Cholesterol Management, TAB 0 Refills Ana Cristina Hannon MD May 07, 2017 15:14
--- NOTE | 2017-05-07 15:46 | PD.CARD.PN ---
Subjective Subjective Remarks No events overnight Breathing better, legs less edematous Objective Medications Current Medications Medications (Trade) Dose Ordered Sig/Daniel Route Start Time Stop Time Status Last Admin (NS Flush) 2 ml UNSCH PRN IV FLUSH 05/05/17 19:00 (NS Flush) 2 ml BID IV FLUSH 05/05/17 21:00 05/07/17 09:37 (Tylenol) 650 mg Q4H PRN PO 05/05/17 19:00 (Zofran Inj) 4 mg Q6H PRN IVP 05/05/17 19:00 (Tylenol) 650 mg Q6H PRN PO 05/05/17 19:00 (Narcan Inj) 0.4 mg UNSCH PRN IV PUSH 05/05/17 19:00 (Senokot) 17.2 mg Q12H PRN PO 05/05/17 19:00 (Levaquin) 500 mg Q24H PO 05/06/17 00:00 05/07/17 00:18 (Prinivil) 5 mg DAILY PO 05/06/17 09:00 05/07/17 09:36 (Lopressor) 25 mg BID PO 05/06/17 09:00 05/07/17 09:36 (Theragran M Tab) 1 tab DAILY PO 05/06/17 09:00 05/07/17 09:36 (KCl) 10 meq BID PO 05/06/17 09:00 05/07/17 09:36 (Ptu) 100 mg Q12HR PO 05/06/17 09:00 05/07/17 09:36 Non-Formulary Medication 20 mg DAILY PO 05/06/17 09:00 (Lasix Inj) 20 mg BID@18 IV PUSH 05/06/17 09:00 05/07/17 09:36 (Protonix) 40 mg DAILY PO 05/06/17 09:00 05/07/17 09:36 (Lipitor) 20 mg HS PO 05/06/17 21:00 05/06/17 22:35 Vital Signs / I&O Vital Signs Date Time Temp Pulse Resp B/P (MAP) Pulse Ox O2 Delivery O2 Flow Rate FiO2 05/07/17 11:50 64 05/07/17 11:28 98.3 65 16 113/58 (76) 95 05/07/17 08:15 97.5 63 16 124/77 (93) 93 05/07/17 07:12 64 05/07/17 03:52 97.9 65 18 106/51 (69) 95 05/07/17 00:30 69 05/06/17 23:54 97.8 69 18 102/57 (72) 95 05/06/17 20:35 65 05/06/17 20:00 98 05/06/17 19:44 97.9 66 18 108/55 (72) 95 05/06/17 16:53 66 I/O 05/06/17 05/06/17 05/06/17 05/07/17 05/07/17 05/07/17 07:00 15:00 23:00 07:00 15:00 23:00 Intake Total 250 ml Output Total 500 ml Balance -250 ml Intake Oral 250 ml Output Urine Total 500 ml # Voids 7 Physical Exam GENERAL: NAD, AAOx3, appears older than stated age SKIN: Warm and dry. HEAD: Atraumatic. Normocephalic. EYES: Pupils equal and round. No scleral icterus. No injection or drainage. ENT: No nasal bleeding or discharge. Mucous membranes pink and moist. NECK: Trachea midline. No JVD. CARDIOVASCULAR: Regular rate and rhythm. RESPIRATORY: No accessory muscle use. Clear to auscultation. Breath sounds equal bilaterally. GASTROINTESTINAL: Abdomen soft, non-tender, nondistended. Hepatic and splenic margins not palpable. MUSCULOSKELETAL: 1+ pitting edema bilaterally NEUROLOGICAL: Awake and alert. No obvious cranial nerve deficits. Motor grossly within normal limits. Five out of 5 muscle strength in the arms and legs. Normal speech. PSYCHIATRIC: Appropriate mood and affect; insight and judgment normal. Laboratory Laboratory Tests Test 05/07/17 08:38 05/07/17 08:44 Blood Urea Nitrogen 15 MG/DL Creatinine 0.79 MG/DL Random Glucose 104 MG/DL Total Protein 6.1 GM/DL Albumin 2.6 GM/DL Calcium Level 8.4 MG/DL Alkaline Phosphatase 277 U/L Aspartate Amino Transf (AST/SGOT) 76 U/L Alanine Aminotransferase (ALT/SGPT) 71 U/L Total Bilirubin 1.9 MG/DL Sodium Level 136 MEQ/L Potassium Level 3.1 MEQ/L Chloride Level 98 MEQ/L Carbon Dioxide Level 30.0 MEQ/L Anion Gap 8 MEQ/L Estimat Glomerular Filtration Rate 72 ML/MIN White Blood Count 5.7 TH/MM3 Red Blood Count 3.47 MIL/MM3 Hemoglobin 12.8 GM/DL Hematocrit 38.8 % Mean Corpuscular Volume 111.7 FL Mean Corpuscular Hemoglobin 36.9 PG Mean Corpuscular Hemoglobin Concent 33.1 % Red Cell Distribution Width 21.1 % Platelet Count 42 TH/MM3 Mean Platelet Volume 11.6 FL Neutrophils (%) (Auto) 78.1 % Lymphocytes (%) (Auto) 10.8 % Monocytes (%) (Auto) 10.8 % Eosinophils (%) (Auto) 0.1 % Basophils (%) (Auto) 0.2 % Neutrophils # (Auto) 4.4 TH/MM3 Lymphocytes # (Auto) 0.6 TH/MM3 Monocytes # (Auto) 0.6 TH/MM3 Eosinophils # (Auto) 0.0 TH/MM3 Basophils # (Auto) 0.0 TH/MM3 CBC Comment AUTO DIFF Differential Comment AUTO DIFF CONFIRMED Platelet Estimate LOW Platelet Morphology Comment ENLARGED B-Type Natriuretic Peptide 749 PG/ML Assessment and Plan Problem List: (1) CHF (congestive heart failure) ICD Codes: I50.9 - Heart failure, unspecified Status: Acute (2) Lung cancer ICD Codes: C34.90 - Malignant neoplasm of unspecified part of unspecified bronchus or lung (3) Thrombosis ICD Codes: I82.90 - Acute embolism and thrombosis of unspecified vein Status: Acute Assessment and Plan 1) Acute on chronic systolic heart failure Con't diuresis Needs compliance with Lasix, doesn't take when she goes to chemo 2) Elevated troponin Most likely Type 2 Con't medical management, not an invasive candidate at this time 3) Questionable history of AFib Not noted anywhere Even if she did, not a candidate for anti-coagulation due to thrombocytopenia 4) On discharge, follow up with Dr. Moran Problem Qualifiers (1) CHF (congestive heart failure): Qualified Codes: I50.9 - Heart failure, unspecified Dain Avalos DO May 07, 2017 15:46
[2017-05-07] MEDS: ATORVASTATIN 20 MG TAB PO SCH (21:52)
[2017-05-08] MEDS: LEVOFLOXACIN 500 MG TAB PO SCH
[2017-05-08 00:50] VITALS: PULSE 63
[2017-05-08 04:17] VITALS: BP 121/56; PULSE 62; RESP 18; TEMP 97.9; O2SAT 96
[2017-05-08 08:14] VITALS: BP 116/59; PULSE 61; RESP 16; TEMP 97.5; O2SAT 97
[2017-05-08] MEDS: SODIUM CHLORIDE 0.9% FLUSH 10 ML FLUSH IV FLUSH SCH (08:50)
[2017-05-08] MEDS: FUROSEMIDE 20 MG/2 ML VIAL IV PUSH SCH (08:51)
[2017-05-08] MEDS: LISINOPRIL 5 MG TAB PO SCH (08:52)
[2017-05-08] MEDS: POTASSIUM CHLORIDE 10 MEQ CAP PO SCH (08:52)
[2017-05-08] MEDS: PANTOPRAZOLE SOD 40 MG DELAYED RELEASE TAB PO SCH (08:52)
[2017-05-08] MEDS: METOPROLOL TARTRATE 25 MG TAB PO SCH (08:52)
[2017-05-08] MEDS: MULTIVITAMINS/MINERALS THERAPEUTIC TAB PO SCH (08:52)
[2017-05-08] MEDS: PROPYLTHIOURACIL 50 MG TAB PO SCH (08:52)
[2017-05-08] MEDS ORDERED: PAXIL 20 MG PO SCH (09:00)
--- NOTE | 2017-05-08 10:18 | PD.CARD.PN ---
Subjective Subjective Remarks No events overnight Breathing better, legs less edematous Objective Medications Current Medications Medications (Trade) Dose Ordered Sig/Daniel Route Start Time Stop Time Status Last Admin (NS Flush) 2 ml UNSCH PRN IV FLUSH 05/05/17 19:00 (NS Flush) 2 ml BID IV FLUSH 05/05/17 21:00 05/08/17 08:50 (Tylenol) 650 mg Q4H PRN PO 05/05/17 19:00 (Zofran Inj) 4 mg Q6H PRN IVP 05/05/17 19:00 (Tylenol) 650 mg Q6H PRN PO 05/05/17 19:00 (Narcan Inj) 0.4 mg UNSCH PRN IV PUSH 05/05/17 19:00 (Senokot) 17.2 mg Q12H PRN PO 05/05/17 19:00 (Levaquin) 500 mg Q24H PO 05/06/17 00:00 05/08/17 00:00 (Prinivil) 5 mg DAILY PO 05/06/17 09:00 05/08/17 08:52 (Lopressor) 25 mg BID PO 05/06/17 09:00 05/08/17 08:52 (Theragran M Tab) 1 tab DAILY PO 05/06/17 09:00 05/08/17 08:52 (KCl) 10 meq BID PO 05/06/17 09:00 05/08/17 08:52 (Ptu) 100 mg Q12HR PO 05/06/17 09:00 05/08/17 08:52 (Lasix Inj) 20 mg BID@18 IV PUSH 05/06/17 09:00 05/08/17 08:51 (Protonix) 40 mg DAILY PO 05/06/17 09:00 05/08/17 08:52 (Lipitor) 20 mg HS PO 05/06/17 21:00 05/07/17 21:52 Patient Own Medication PT OWN MED:PAXIL 20 MG G... DAILY PO 05/08/17 09:00 Vital Signs / I&O Vital Signs Date Time Temp Pulse Resp B/P (MAP) Pulse Ox O2 Delivery O2 Flow Rate FiO2 05/08/17 08:14 97.5 61 16 116/59 (78) 97 05/08/17 04:17 97.9 62 18 121/56 (77) 96 05/08/17 00:50 63 05/07/17 23:46 98.0 69 18 103/57 (72) 96 05/07/17 21:07 97.9 64 18 104/54 (71) 96 05/07/17 21:05 65 05/07/17 16:10 97.4 62 16 113/56 (75) 96 05/07/17 16:10 62 05/07/17 11:50 64 05/07/17 11:28 98.3 65 16 113/58 (76) 95 I/O 05/07/17 05/07/17 05/07/17 05/08/17 05/08/17 05/08/17 07:00 15:00 23:00 07:00 15:00 23:00 # Voids 1 Physical Exam GENERAL: NAD, AAOx3, appears older than stated age SKIN: Warm and dry. HEAD: Atraumatic. Normocephalic. EYES: Pupils equal and round. No scleral icterus. No injection or drainage. ENT: No nasal bleeding or discharge. Mucous membranes pink and moist. NECK: Trachea midline. No JVD. CARDIOVASCULAR: Regular rate and rhythm. RESPIRATORY: No accessory muscle use. Clear to auscultation. Breath sounds equal bilaterally. GASTROINTESTINAL: Abdomen soft, non-tender, nondistended. Hepatic and splenic margins not palpable. MUSCULOSKELETAL: 1+ pitting edema bilaterally NEUROLOGICAL: Awake and alert. No obvious cranial nerve deficits. Motor grossly within normal limits. Five out of 5 muscle strength in the arms and legs. Normal speech. PSYCHIATRIC: Appropriate mood and affect; insight and judgment normal. Assessment and Plan Problem List: (1) CHF (congestive heart failure) ICD Codes: I50.9 - Heart failure, unspecified Status: Acute (2) Lung cancer ICD Codes: C34.90 - Malignant neoplasm of unspecified part of unspecified bronchus or lung (3) Thrombosis ICD Codes: I82.90 - Acute embolism and thrombosis of unspecified vein Status: Acute Assessment and Plan 1) Acute on chronic systolic heart failure Appears better compensated Needs compliance with Lasix, doesn't take when she goes to chemo 2) Elevated troponin Most likely Type 2 Con't medical management, not an invasive candidate at this time 3) Questionable history of AFib Not noted anywhere Even if she did, not a candidate for anti-coagulation due to thrombocytopenia 4) On discharge, follow up with Dr. Moran Problem Qualifiers (1) CHF (congestive heart failure): Qualified Codes: I50.9 - Heart failure, unspecified Dain Avalos DO May 08, 2017 10:18
[2017-05-08 11:32] VITALS: BP 90/59; PULSE 64; RESP 20; TEMP 97.4; O2SAT 95
--- NOTE | 2017-05-08 12:25 | HHI.FF ---
Face to Face Verification Diagnosis: (1) Lung cancer (2) Thrombosis (3) CHF (congestive heart failure) Physical Therapy Order: Evaluate and Treat Home Health Nursing Order: Medical education Signs/symptoms of disease process CHF education Medication education-adverse effect Nursing assessment with vital signs I have seen patient Manuela Thompson on 05/08/17. My clinical findings support the need for the requested home health care services because: Ltd mobility - disease progression Patient has SOB Deconditioned w/ increased weakness High risk of falls I certify that my clinical findings support that this patient is homebound because: Impaired cognitive ability/safety Unsteady gait/balance Geneva Varela May 08, 2017 12:25
--- NOTE | 2017-05-08 13:08 | PD.ONC.PN ---
Subjective Subjective Remarks feels better. Leg edema has almost resolved. SOB has improved as well. Objective Data Date Time Temp Pulse Resp B/P (MAP) Pulse Ox O2 Delivery O2 Flow Rate FiO2 05/08/17 11:32 97.4 64 20 90/59 (69) 95 05/08/17 08:14 97.5 61 16 116/59 (78) 97 05/08/17 04:17 97.9 62 18 121/56 (77) 96 05/08/17 00:50 63 05/07/17 23:46 98.0 69 18 103/57 (72) 96 05/07/17 21:07 97.9 64 18 104/54 (71) 96 05/07/17 21:05 65 05/07/17 16:10 97.4 62 16 113/56 (75) 96 05/07/17 16:10 62 Result Diagram: 05/07/17 0844 05/07/17 0838 Culture Results Microbiology Date/Time Source Procedure Growth Status 05/06/17 08:30 Urine Clean Catch Urine Culture - Final 10-50,000 CFU/ML MIXED GRAM POSITIVE ... Complete Administered Medications Medications (Trade) Dose Ordered Sig/Daniel Route PRN Reason Start Time Stop Time Status Last Admin Dose Admin Sodium Chloride (NS Flush) 2 ml BID IV FLUSH 05/05/17 21:00 05/08/17 08:50 Levofloxacin (Levaquin) 500 mg Q24H PO 05/06/17 00:00 05/08/17 00:00 Lisinopril (Prinivil) 5 mg DAILY PO 05/06/17 09:00 05/08/17 08:52 Metoprolol Tartrate (Lopressor) 25 mg BID PO 05/06/17 09:00 05/08/17 08:52 Multivitamins/ Minerals Therapeutic (Theragran M Tab) 1 tab DAILY PO 05/06/17 09:00 05/08/17 08:52 Potassium Chloride (KCl) 10 meq BID PO 05/06/17 09:00 05/08/17 08:52 Propylthiouracil (Ptu) 100 mg Q12HR PO 05/06/17 09:00 05/08/17 08:52 Furosemide (Lasix Inj) 20 mg BID@18 IV PUSH 05/06/17 09:00 05/08/17 08:51 Pantoprazole Sodium (Protonix) 40 mg DAILY PO 05/06/17 09:00 05/08/17 08:52 Atorvastatin Calcium (Lipitor) 20 mg HS PO 05/06/17 21:00 05/07/17 21:52 Objective Remarks GENERAL: Well-nourished, well-developed patient. SKIN: Warm and dry. HEAD: Normocephalic. EYES: No scleral icterus. No injection or drainage. NECK: Supple, trachea midline. No JVD or lymphadenopathy. LYMPHATIC: No adenopathy. CARDIOVASCULAR: Regular rate and rhythm without murmurs. RESPIRATORY: Breath sounds equal bilaterally. No accessory muscle use. GASTROINTESTINAL: Abdomen soft, non-tender, nondistended. EXTREMITIES: minimal edema. NEUROLOGICAL: No obvious focal deficit. Awake, alert, and oriented x3. Assessment/Plan Problem List: (1) CHF (congestive heart failure) ICD Codes: I50.9 - Heart failure, unspecified Status: Acute Plan: Has AICD On Lasix Improving. CT A/P = negative. Liver enzymes are high most likely due to passive hepatic congestion from CHF. 05/08 = CHF is resolving with diuresis. Looks better. (2) Lung cancer ICD Codes: C34.90 - Malignant neoplasm of unspecified part of unspecified bronchus or lung Plan: s/p Chemo. XRT and Chemo on hold due to low plat. CT A/P = negative for mets. Liver enzymes are high most likely due to passive hepatic congestion from CHF. (3) Thrombosis ICD Codes: I82.90 - Acute embolism and thrombosis of unspecified vein Status: Acute Plan: This is superficial thrombosis. No reason for anticoagulation. Lovenox is contraindicated due to plat ~50K. Hold ASA due to low plat. Pt does not have afib. This needs to be corrected in the medical records. D/W loop tacker Dr Avalos. No indication for anticoagulation. Pt is cleared for d/c from my standpoint. 05/08/17 : Stable to be d/c today. Follow up as outpt, Chemo to resume when plat >100 sign off available prn. Problem Qualifiers (1) CHF (congestive heart failure): Qualified Codes: I50.9 - Heart failure, unspecified Lindsay Wong MD May 08, 2017 13:08
[2017-05-08] MEDS ORDERED: LEVA750T9 PO (16:04)
[2017-05-08] MEDS ORDERED: LEVA500T33 PO (16:10)
--- NOTE | 2017-05-08 16:16 | HHI.PR ---
Subjective Remarks Feels better. LE edema improved. No n/v/d/c. Denies chest pain. SOB improved . No palpitations. Says she follows with Dr Moran cardiology Feel improved Objective Vitals Vital Signs Date Time Temp Pulse Resp B/P (MAP) Pulse Ox O2 Delivery O2 Flow Rate FiO2 05/08/17 11:32 97.4 64 20 90/59 (69) 95 05/08/17 08:14 97.5 61 16 116/59 (78) 97 05/08/17 04:17 97.9 62 18 121/56 (77) 96 05/08/17 00:50 63 05/07/17 23:46 98.0 69 18 103/57 (72) 96 05/07/17 21:07 97.9 64 18 104/54 (71) 96 05/07/17 21:05 65 I/O 05/07/17 05/07/17 05/07/17 05/08/17 05/08/17 05/08/17 07:00 15:00 23:00 07:00 15:00 23:00 # Voids 1 Result Diagram: 05/07/17 0844 05/07/17 0838 Imaging Last Impressions Abdomen/Pelvis CT 05/06/17 0000 Signed Impressions: Service Date/Time: Sunday, May 07, 2017 00:52 - CONCLUSION: 1. No acute adenopathy. 2. Small left effusion. 3. Trace ascites. Evgeny العراقي Jr., MD Lower Extremity Ultrasound 05/05/17 0000 Signed Impressions: Service Date/Time: Friday, May 05, 2017 16:09 - CONCLUSION: There is occlusive thrombus present within left leg varicosities. Roney Louie MD Chest X-Ray 05/05/17 0000 Signed Impressions: Service Date/Time: Friday, May 05, 2017 12:32 - CONCLUSION: Hazy opacity in the left lung possibly related to prior radiation change for reported lung carcinoma. There is some basal atelectasis or scarring and elevated left hemidiaphragm. [id number] tip in right atrium. Guille Farnsworth MD CT Angiography 05/05/17 0000 Signed Impressions: Service Date/Time: Friday, May 05, 2017 21:42 - CONCLUSION: 1. No pulmonary embolus. 2. Large left hilar mass which may be metastatic or a central primary bronchogenic carcinoma. There is associated lingular bronchus and pulmonary artery obstruction. Mass effect and mild narrowing on/of the main and left main branch pulmonary artery. 3. Patchy nodular left apex upper lobe consolidation, most likely infectious or inflammatory although malignancy not entirely excludable. 4. Small to moderate left pleural effusion. Braden Ferrer MD Objective Remarks GENERAL: This is a well-nourished, well-developed patient, in no apparent distress. CARDIOVASCULAR: Regular rate and rhythm without murmurs, gallops, or rubs. RESPIRATORY: Clear to auscultation. Breath sounds equal bilaterally. No wheezes , rales, or rhonchi. GASTROINTESTINAL: Abdomen soft, non-tender, nondistended. No guarding. MUSCULOSKELETAL: Extremities without clubbing, cyanosis. Bilateral lower extremity pitting edema 3+ up to knees NEUROLOGICAL: Awake and alert. No acute deficits Normal speech. Procedures none A/P Problem List: (1) CHF (congestive heart failure) ICD Code: I50.9 - Heart failure, unspecified Status: Acute (2) Thrombosis ICD Code: I82.90 - Acute embolism and thrombosis of unspecified vein Status: Acute (3) Lung cancer ICD Code: C34.90 - Malignant neoplasm of unspecified part of unspecified bronchus or lung Assessment and Plan Acute on chronic symptomatic CHF exacerbation Bilateral LE edema LLE occlusive thrombus in varicosities Medications non compliance- stated she skips Lasix sometimes due to her med apt , and has missed them going to chemo apt Suprapubic area skin ulceration/ cellulitis- at hysterectomy scar area Foul smelling urine HTN CAD- massive UT 23 yrs ago, had cabg CHF- s/p aicd 35% AFIB- only asa; not on any anticoagulation apart from asa COPD Squamous cell carcinoma of the lung - on chemo - last dose was 3 weeks ago; was supposed to start radiation today Anxiety Hyperthyroidism Plan: Lovenox therapeutic dose for afib will ask pt's oncologist for anticoagulation thrombus is within varicosities per report , however, patient is also indicated forceful anticoagulation for her A. fib. Serial cardiac enzymes and EKGs. Patient is diuresing well with 20 mg IV of Lasix that she received in ER. We'll continue Lasix at 20 mg IV every 12 hours. Start patient on levofloxacin 500 mg by mouth every 24 hours for her skin ulcerations/cellulitis at suprapubic/hysterectomy scar area Check UA and urine culture if indicated. Resume home medications. DVT prophylaxis on Lovenox. Discussed Condition With Patient, nurse Improved, can DC home with home health. Problem Qualifiers (1) CHF (congestive heart failure): Qualified Codes: I50.9 - Heart failure, unspecified Ana Cristina Hannon MD May 08, 2017 16:16
== END 2017-05-08 19:06 | disposition home health service (06) | DRG 292 ==
LOC: NEPC 11:39 → NEDA 17:51 → NEPGCP 22:54 → OBSVTOIN 05-06 00:09
PROVIDERS: ADMIT Hospitalist; ATTEND Hospitalist
DX: I11.0 Hypertensive heart disease with heart failure (principal); I82.90 Acute embolism and thrombosis of unspecified vein; D69.59 Other secondary thrombocytopenia; I42.0 Dilated cardiomyopathy; C34.90 Malignant neoplasm of unspecified part of unspecified bronchus or lung; J44.9 Chronic obstructive pulmonary disease, unspecified; R17 Unspecified jaundice; T81.4XXA Infection following a procedure, initial encounter; I50.23 Acute on chronic systolic (congestive) heart failure; L98.491 Non-pressure chronic ulcer of skin of other sites limited to breakdown of skin; I48.91 Unspecified atrial fibrillation; T45.1X5A Adverse effect of antineoplastic and immunosuppressive drugs, initial encounter; F41.9 Anxiety disorder, unspecified; I25.10 Atherosclerotic heart disease of native coronary artery without angina pectoris; K21.9 Gastro-esophageal reflux disease without esophagitis; E05.90 Thyrotoxicosis, unspecified without thyrotoxic crisis or storm; K59.00 Constipation, unspecified; F32.9 Major depressive disorder, single episode, unspecified; R60.0 Localized edema; E78.00 Pure hypercholesterolemia, unspecified; R63.0 Anorexia; K76.1 Chronic passive congestion of liver; E07.9 Disorder of thyroid, unspecified; E21.3 Hyperparathyroidism, unspecified; Z95.1 Presence of aortocoronary bypass graft; Z95.810 Presence of automatic (implantable) cardiac defibrillator; I25.2 Old myocardial infarction; Z92.21 Personal history of antineoplastic chemotherapy; Z87.891 Personal history of nicotine dependence; Z91.14 Patient's other noncompliance with medication regimen; Z90.710 Acquired absence of both cervix and uterus; Z86.73 Personal history of transient ischemic attack (TIA), and cerebral infarction without residual deficits; Z82.49 Family history of ischemic heart disease and other diseases of the circulatory system; Z79.82 Long term (current) use of aspirin
CPT/HCPCS: 71046; 71275; 74177; 80053; 81001; 82550; 82552; 83690; 83735; 83880; 84484; 85025; 85610; 85730; 87086; 93005; 93970; 96374; G0378; J1650; J1940; Q9967

== ENCOUNTER 2017-06-16 21:09 | Inpatient (IN) | payer OTHER, MEDICARE ==
[~2017-06-16] VITALS: Ht 147.3 cm; Wt 62.5 kg
[~2017-06-16 21:09] MED LIST changes: -IPRASOL INH; +LEVA500T33 PO
[2017-06-16 21:14] VITALS: BP 131/70; PULSE 72; RESP 24; TEMP 97.7
[2017-06-16] MEDS ORDERED: SODIUM CHLORIDE 0.9% FLUSH 10 ML FLUSH IVF PRN (21:30)
[2017-06-16 21:52] VITALS: O2SAT 100
--- NOTE | 2017-06-16 21:53 | RADRPT ---
EXAM DATE/TIME: 06/16/2017 21:33 [facility] COMPARISON: CT PULMONARY ANGIOGRAM, May 05, 2017, 21:42. CHEST PA & LAT, May 05, 2017, 12:32. INDICATIONS : Short of breath. MEDICAL HISTORY : Gastroesophageal reflux disease. Carcinoma, lung. Hypertension. SURGICAL HISTORY : CABG. Hysterectomy. ENCOUNTER: Initial ACUITY: 1 day PAIN SCORE: 0/10 LOCATION: Bilateral chest FINDINGS: Consolidation and moderate to large effusion seen at the left lung base, worse. There is left volume loss and masslike opacity of the left hilar region. Right lung remains reasonably clear. There is no pneumothorax. Mild cardiomegaly similar to before. Patient has a cardiac pacer/defibrillator. There has been previo us median sternotomy. Right IJ central venous catheter with tip in the right atrium again seen. CONCLUSION: Left hilar mass with worsening ipsilateral consolidation and effusion. Braden Ferrer MD on June 16, 2017 at 21:49 Board Certified Radiologist. This report was verified electronically.
[2017-06-16 21:59] LABS: AUTOMATED NEUTROPHIL # 4.4 TH/MM3 (1.8-7.7); BASOPHIL % 0.3 % (0.0-2.0); EOSINOPHIL % 0.2 % (0.0-4.0); HEMATOCRIT 43.1 % (35.0-46.0); HEMOGLOBIN 14.1 GM/DL (11.6-15.3); LYMPH % 11.6 % (9.0-44.0); LYMPHOCYTE # 0.6 TH/MM3 (1.0-4.8); MEAN CELL VOLUME 106.8 FL (80.0-100.0); MEAN CORPUSCULAR HEMOGLOBIN 34.9 PG (27.0-34.0); MEAN CORPUSCULAR HGB CONC 32.7 % (32.0-36.0); MEAN PLATELET VOLUME 10.8 FL (7.0-11.0); MONO % 6.7 % (0.0-8.0); MONOCYTE # 0.4 TH/MM3 (0-0.9); NEUT % 81.2 % (16.0-70.0); PLATELET COUNT 50 TH/MM3 (150-450); RED BLOOD COUNT 4.04 MIL/MM3 (4.00-5.30); RED CELL DISTRIBUTION WIDTH 17.6 % (11.6-17.2); WHITE BLOOD COUNT 5.4 TH/MM3 (4.0-11.0)
[2017-06-16 22:09] LABS: INTERNATIONAL NORMALIZED RATIO 1.3 RATIO; PROTHROMBIN TIME - PATIENT 13.6 SEC (9.8-11.6)
--- NOTE | 2017-06-16 22:10 | PD ---
HPI Chief Complaint: Respiratory Symptoms Time Seen by Provider: 21:17 Travel History International Travel<30 days: No Contact w/Intl Traveler<30days: No Traveled to known affect area: No History of Present Illness HPI 71 YO F with PMH of CAD status post stenting, implanted defibrillator, CHF, lung CA, under the care of Dr. Wong, presents to the ED for evaluation of 4 day history of worsening SOB and nonproductive cough. She endorses worsening edema in the bilateral lower extremities. She endorses mild nausea and low appetite. She denies fever, chills, chest pain, abdominal pain, dysuria, back pain. She does not use oxygen at home. Per EMS report O2 saturations were "in the 40s" on arrival, improved with 4 L nasal cannula. PFSH Past Medical History Anxiety: Yes Cancer: Yes (Lung cancer) Cardiovascular Problems: Yes (CAD) Chemotherapy: Yes Diabetes: No Gastrointestinal Disorders: Yes (GERD) GERD: Yes Hepatitis: No Hypertension: Yes Immune Disorder: No Psychiatric: Yes (anxiety) Respiratory: Yes (COPD) Immunizations Current: Yes Thyroid Disease: Yes (Hyperthyroid) Past Surgical History AICD: Yes Cardiac Surgery: Yes (CABG, AICD, STENTS) Gynecologic Surgery: Yes (Hysterectomy) Hysterectomy: Yes Oral Surgery: Yes (Tonsilectomy) Tonsillectomy: Yes Other Surgery: Yes ("VEIN STRIPPING IN BOTH LEGS") Social History Alcohol Use: No Tobacco Use: No Substance Use: No Allergies-Medications (Allergen,Severity, Reaction): Coded Allergies: penicillin G (Verified Allergy, Severe, "Knocks me out", 06/16/17) Patient reports severe allergy. paroxetine (Verified Allergy, Intermediate, Hives, 06/16/17) Patient states this happens with the generic paxil codeine (Verified Adverse Reaction, Intermediate, Nausea/Vomiting, 06/16/17 ) Reported Meds & Prescriptions Reported Meds & Active Scripts Active Levaquin (Levofloxacin) 500 Mg Tablet 500 Mg PO Q24H Reported Centrum (Multiple Vitamins W/ Minerals) 1 Chew 1 Tab CHEW DAILY Amiodarone (Amiodarone HCl) 200 Mg Tab 200 Mg PO DAILY Omeprazole 40 Mg Cap 40 Mg PO DAILY Aspirin 325 Mg Tab 325 Mg PO DAILY Rosuvastatin (Rosuvastatin Calcium) 10 Mg Tab 10 Mg PO HS Paxil (Paroxetine HCl) 10 Mg Tab 20 Mg PO DAILY Lisinopril 5 Mg Tab 5 Mg PO DAILY Potassium Chloride ER (Potassium Chloride) 10 Meq Cap 10 Meq PO BID Furosemide 20 Mg Tab 20 Mg PO DAILY Metoprolol Tartrate 25 Mg Tab 25 Mg PO BID Propylthiouracil 50 Mg Tab 100 Mg PO Q12HR Review of Systems Except as stated in HPI: all other systems reviewed are Neg Physical Exam Narrative GENERAL: Frail, ashen white female, speaking in short sentences, extra work of breathing. SKIN: Focused skin assessment warm/dry. Excoriation in bilateral groins, possibly intertrigo. HEAD: Normocephalic. EYES: No scleral icterus. No injection or drainage. NECK: Supple, trachea midline. No JVD or lymphadenopathy. CARDIOVASCULAR: Regular rate and rhythm without murmurs, gallops, or rubs. RESPIRATORY: Breath sounds coarse and diminished bilaterally. Positive accessory muscle use. Tachypneic GASTROINTESTINAL: Abdomen soft, non-tender, nondistended. MUSCULOSKELETAL: No cyanosis. 2+ pitting edema to the knees bilaterally. BACK: Nontender without obvious deformity. No CVA tenderness. Data Data Last Documented VS Vital Signs Date Time Temp Pulse Resp B/P (MAP) Pulse Ox O2 Delivery O2 Flow Rate FiO2 06/16/17 21:52 100 Nasal Cannula 4.00 06/16/17 21:14 97.7 72 24 131/70 (90) Orders Orders Complete Blood Count With Diff (06/16/17 21:27) Comprehensive Metabolic Panel (06/16/17 21:27) B-Type Natriuretic Peptide (06/16/17 21:27) Act Partial Throm Time (Ptt) (06/16/17 21:27) Prothrombin Time / Inr (Pt) (06/16/17 21:27) Ckmb (Isoenzyme) Profile (06/16/17 21:27) Troponin I (06/16/17 21:27) Urinalysis - C+S If Indicated (06/16/17 21:27) Iv Access Insert/Monitor (06/16/17 21:27) Electrocardiogram (06/16/17 21:27) Ecg Monitoring (06/16/17 21:27) Oximetry (06/16/17 21:27) Oxygen Administration (06/16/17 21:27) Chest, Single Ap (06/16/17 21:27) Sodium Chloride 0.9% Flush (Ns Flush) (06/16/17 21:30) Cath For Specimen (06/16/17 22:04) Furosemide Inj (Lasix Inj) (06/16/17 22:45) Consult Medical Oncology (06/16/17 ) Admit Order (Ed Use Only) (06/16/17 22:47) Labs Laboratory Tests Test 06/16/17 21:43 06/16/17 22:17 White Blood Count 5.4 TH/MM3 Red Blood Count 4.04 MIL/MM3 Hemoglobin 14.1 GM/DL Hematocrit 43.1 % Mean Corpuscular Volume 106.8 FL Mean Corpuscular Hemoglobin 34.9 PG Mean Corpuscular Hemoglobin Concent 32.7 % Red Cell Distribution Width 17.6 % Platelet Count 50 TH/MM3 Mean Platelet Volume 10.8 FL Neutrophils (%) (Auto) 81.2 % Lymphocytes (%) (Auto) 11.6 % Monocytes (%) (Auto) 6.7 % Eosinophils (%) (Auto) 0.2 % Basophils (%) (Auto) 0.3 % Neutrophils # (Auto) 4.4 TH/MM3 Lymphocytes # (Auto) 0.6 TH/MM3 Monocytes # (Auto) 0.4 TH/MM3 Eosinophils # (Auto) 0.0 TH/MM3 Basophils # (Auto) 0.0 TH/MM3 CBC Comment AUTO DIFF Differential Total Cells Counted 100 Neutrophils % (Manual) 86 % Band Neutrophils % 1 % Lymphocytes % 8 % Monocytes % 4 % Neutrophils # (Manual) 4.8 TH/MM3 Myelocytes 1 % Nucleated Red Blood Cells 1 /100 WBC Differential Comment FINAL DIFF MANUAL Platelet Estimate LOW Platelet Morphology Comment NORMAL Ovalocytes 1+ Acanthocytes OCC Prothrombin Time 13.6 SEC Prothromb Time International Ratio 1.3 RATIO Activated Partial Thromboplast Time 29.9 SEC Blood Urea Nitrogen 12 MG/DL Creatinine 0.79 MG/DL Random Glucose 152 MG/DL Total Protein 6.4 GM/DL Albumin 2.5 GM/DL Calcium Level 8.7 MG/DL Alkaline Phosphatase 242 U/L Aspartate Amino Transf (AST/SGOT) 37 U/L Alanine Aminotransferase (ALT/SGPT) 36 U/L Total Bilirubin 1.6 MG/DL Sodium Level 140 MEQ/L Potassium Level 3.6 MEQ/L Chloride Level 102 MEQ/L Carbon Dioxide Level 27.8 MEQ/L Anion Gap 10 MEQ/L Estimat Glomerular Filtration Rate 72 ML/MIN Total Creatine Kinase 50 U/L Troponin I 0.29 NG/ML B-Type Natriuretic Peptide 871 PG/ML Urine Color YELLOW Urine Turbidity HAZY Urine pH 6.0 Urine Specific [place] 1.024 Urine Protein 100 mg/dL Urine Glucose (UA) NEG mg/dL Urine Ketones NEG mg/dL Urine Occult Blood NEG Urine Nitrite NEG Urine Bilirubin NEG Urine Urobilinogen 8.0 MG/DL Urine Leukocyte Esterase NEG Urine WBC 3 /hpf Urine Squamous Epithelial Cells <1 /hpf Urine Calcium Oxalate Crystals MANY /hpf Urine Hyaline Casts 13 /lpf Urine Granular Casts 2 /lpf Urine Mucus MOD /lpf Microscopic Urinalysis Comment CULT NOT INDICATED MDM Medical Decision Making Medical Screen Exam Complete: Yes Emergency Medical Condition: Yes Differential Diagnosis CHF exacerbation versus ACS versus non-small cell lung CA versus UTI versus other Narrative Course 71-year-old female with PMH of non-small cell lung cancer the left lung, CHF, CAD status post stenting and defibrillator implantation presents to the ED for evaluation of 4 day history of worsening shortness of breath. Patient is afebrile, O2 saturations 100% on 4 L by nasal cannula. Speaking in short sentences, positive accessory muscle use. Lung sounds are coarse and diminished bilaterally. Significant edema in bilateral lower extremities. EKG rate 71, sinus rhythm. DC interval 156, QRS 122, QTC 461. Left anterior fascicular block. No acute ST changes. Reviewed by Dr. Desir. CXR: Left hilar mass with worsening ipsilateral consolidation and effusion per radiology read. Troponin 0 0.29. BNP 871. CBC: WBC 5.4. Hemoglobin 14.1. INR 1.3. CMP: BUN 12, creatinine 0.79. Glucose 152. UA: No culture indicated. Patient was administered 40 mg of Lasix. I discussed the results of the workup and recommended admission to the hospital. Patient is agreeable. I spoke with Dr. Betancur who agrees to accept the patient to the medicine service. Consult placed with Dr. Wong. Please see medicine notes for disposition. Aileen Shetty Jun 16, 2017 22:10
[2017-06-16 22:18] LABS: ALBUMIN 2.5 GM/DL (3.4-5.0); AST (GOT) 37 U/L (15-37); BICARBONATE 27.8 MEQ/L (21.0-32.0); BLOOD UREA NITROGEN 12 MG/DL (7-18); CALCIUM 8.7 MG/DL (8.5-10.1); CHLORIDE 102 MEQ/L (98-107); CREATININE 0.79 MG/DL (0.50-1.00); GLOMERULAR FILTRATION RATE 72 ML/MIN (>89); GLUCOSE,RANDOM 152 MG/DL (74-106); SODIUM (NA) 140 MEQ/L (136-145)
[2017-06-16 22:19] LABS: ALT (GPT) 36 U/L (10-53)
[2017-06-16 22:23] LABS: ALKALINE PHOSPHATASE 242 U/L (45-117); TOTAL BILIRUBIN ADULT 1.6 MG/DL (0.2-1.0); TOTAL PROTEIN 6.4 GM/DL (6.4-8.2); TROPONIN I 0.29 NG/ML (0.02-0.05)
[2017-06-16 22:37] LABS: BANDS 1 % (0-6); CORRECTED NUCLEATED RBC 1 /100 WBC (0-0); LYMPHOCYTES 8 % (9-44); MONOCYTES 4 % (0-8); MYELOCYTES 1 % (0-0); NEUTROPHIL # MANUAL DIFF 4.8 TH/MM3 (1.8-7.7); NUCLEATED RED BLOOD CELL 1 (0-0); POLYS (SEG NEUTROPHILS) 86 % (16-70)
[2017-06-16 22:41] LABS: ACANTHOCYTES OCC (NORMAL); OVALOCYTES 1+ (NORMAL)
[2017-06-16] MEDS ORDERED: FUROSEMIDE 40 MG/4 ML VIAL IV PUSH ONE (22:45)
[2017-06-16 23:04] LABS: BLOOD, URINE NEG (NEG); CALCIUM OXALATE CRYSTALS,URINE MANY /hpf; GLUCOSE,URINE NEG (NEG); HYALINE CAST, URINE 13 /lpf (RARE); KETONE, URINE NEG (NEG); MUCUS URINE MOD /lpf (OCC); NITRITE,URINE NEG (NEG); SQUAMOUS EPITHELIAL CELL URINE <1 /hpf (0-5); URINE COLOR YELLOW (YELLW/STRAW); URINE LEUKOCYTE ESTERASE NEG (NEG)
[2017-06-16 23:08] LABS: BILIRUBIN, URINE NEG (NEG)
[2017-06-16] MEDS ORDERED: MAGNESIUM HYDROXIDE SUSP 30 ML CUP PO PRN (23:15)
[2017-06-16] MEDS ORDERED: SENNOSIDES 8.6 MG TAB PO PRN (23:15)
[2017-06-16] MEDS ORDERED: NALOXONE HCL 0.4 MG/ML AMP IV PUSH PRN (23:15)
[2017-06-16] MEDS ORDERED: BISACODYL 10 MG SUPP RECTAL PRN (23:15)
[2017-06-16] MEDS ORDERED: ONDANSETRON HCL 4 MG/2 ML VIAL IVP PRN (23:15)
[2017-06-16] MEDS ORDERED: LACTULOSE SYRUP 20 GM/30 ML CUP PO PRN (23:15)
[2017-06-16] MEDS ORDERED: SODIUM CHLORIDE 0.9% FLUSH 10 ML FLUSH IV FLUSH PRN (23:15)
[2017-06-17] VITALS (12 sets, daily range): BP systolic 82–109; BP diastolic 53–72; PULSE 65–86; RESP 16–18; TEMP 97.6–98; O2SAT 95–99
--- NOTE | 2017-06-17 00:08 | HHI.HP ---
[facility] Unknown Admission Diagnosis CHF exacerbation, elevated troponin Diagnoses: Travel History International Travel<30 Days: No Contact w/Intl Traveler <30 Da: No Traveled to Known Affected Are: No History of Present Illness 71-year-old female with a past medical history significant for non-small cell lung cancer, stage III, anxiety, A. fib anticoagulated on aspirin and Plavix, COPD not on home oxygen, CHF (no recent echo for comparison), CAD status post [place] in 1995, depression, GERD, hyperlipidemia and hyperthyroidism presents to the emergency department for evaluation of increasing shortness of breath. The patient reports that she started to have shortness of breath approximately 4 days ago and it has been consistently worsening. She endorses a cough that is at her baseline and dry. She denies any fever/chills. She has bilateral lower extremity edema with new onset of approximately 6 days ago. She was recently discharged from [facility] where her AICD was replaced. She states she has the AICD secondary to CHF. Her oncologist is Dr. Wong. The patient denies any abdominal pain. No chest pain or shortness of breath. No nausea/ vomiting/diarrhea. No lateralizing signs/symptoms. Review of Systems Except as stated in HPI: all other systems reviewed are Neg Past Family Social History Past Medical History non-small cell lung cancer, stage III, anxiety, A. fib anticoagulated on aspirin and Plavix, COPD not on home oxygen, CHF, CAD status post [place] in 1995, depression, GERD, hyperlipidemia and hyperthyroidism Past Surgical History AICD placement Cardioversion Colonoscopy CABG Hysterectomy Ovarian tumor removal Port placement Reported Medications Reported Meds & Active Scripts Active Levaquin (Levofloxacin) 500 Mg Tablet 500 Mg PO Q24H Reported Centrum (Multiple Vitamins W/ Minerals) 1 Chew 1 Tab CHEW DAILY Amiodarone (Amiodarone HCl) 200 Mg Tab 200 Mg PO DAILY Omeprazole 40 Mg Cap 40 Mg PO DAILY Aspirin 325 Mg Tab 325 Mg PO DAILY Rosuvastatin (Rosuvastatin Calcium) 10 Mg Tab 10 Mg PO HS Paxil (Paroxetine HCl) 10 Mg Tab 20 Mg PO DAILY Lisinopril 5 Mg Tab 5 Mg PO DAILY Potassium Chloride ER (Potassium Chloride) 10 Meq Cap 10 Meq PO BID Furosemide 20 Mg Tab 20 Mg PO DAILY Metoprolol Tartrate 25 Mg Tab 25 Mg PO BID Propylthiouracil 50 Mg Tab 100 Mg PO Q12HR Allergies: Coded Allergies: penicillin G (Verified Allergy, Severe, "Knocks me out", 06/16/17) Patient reports severe allergy. paroxetine (Verified Allergy, Intermediate, Hives, 06/16/17) Patient states this happens with the generic paxil codeine (Verified Adverse Reaction, Intermediate, Nausea/Vomiting, 06/16/17 ) Physical Exam Vital Signs Vital Signs Date Time Temp Pulse Resp B/P (MAP) Pulse Ox O2 Delivery O2 Flow Rate FiO2 06/16/17 21:52 100 Nasal Cannula 4.00 06/16/17 21:52 100 Nasal Cannula 4.00 06/16/17 21:14 97.7 72 24 131/70 (90) Physical Exam GENERAL: female sitting up in bed SKIN: No rashes, ecchymoses or lesions. Cool and dry. HEAD: Atraumatic. Normocephalic. No temporal or scalp tenderness. EYES: Pupils equal round and reactive. Extraocular motions intact. No scleral icterus. No injection or drainage. ENT: Nose without bleeding, purulent drainage or septal hematoma. Throat without erythema, tonsillar hypertrophy or exudate. Uvula midline. Airway patent. NECK: Trachea midline. No JVD or lymphadenopathy. Supple, nontender, no meningeal signs. CARDIOVASCULAR: Regular rate and rhythm without murmurs, gallops, or rubs. RESPIRATORY: Bilateral diminished breath sounds, L>R. Positive accessory muscle use GASTROINTESTINAL: Abdomen soft, non-tender, nondistended. No hepato-splenomegaly , or palpable masses. No guarding. MUSCULOSKELETAL: 2+ bilateral LE edema NEUROLOGICAL: Awake and alert. Cranial nerves II through XII intact. Motor and sensory grossly within normal limits. Normal speech. Laboratory Laboratory Tests Test 06/16/17 21:43 06/16/17 22:17 06/16/17 22:57 White Blood Count 5.4 Red Blood Count 4.04 Hemoglobin 14.1 Hematocrit 43.1 Mean Corpuscular Volume 106.8 Mean Corpuscular Hemoglobin 34.9 Mean Corpuscular Hemoglobin Concent 32.7 Red Cell Distribution Width 17.6 Platelet Count 50 Mean Platelet Volume 10.8 Neutrophils (%) (Auto) 81.2 Lymphocytes (%) (Auto) 11.6 Monocytes (%) (Auto) 6.7 Eosinophils (%) (Auto) 0.2 Basophils (%) (Auto) 0.3 Neutrophils # (Auto) 4.4 Lymphocytes # (Auto) 0.6 Monocytes # (Auto) 0.4 Eosinophils # (Auto) 0.0 Basophils # (Auto) 0.0 CBC Comment AUTO DIFF Differential Total Cells Counted 100 Neutrophils % (Manual) 86 Band Neutrophils % 1 Lymphocytes % 8 Monocytes % 4 Neutrophils # (Manual) 4.8 Myelocytes 1 Nucleated Red Blood Cells 1 Differential Comment FINAL DIFF MANUAL Platelet Estimate LOW Platelet Morphology Comment NORMAL Ovalocytes 1+ Acanthocytes OCC Prothrombin Time 13.6 Prothromb Time International Ratio 1.3 Activated Partial Thromboplast Time 29.9 Blood Urea Nitrogen 12 Creatinine 0.79 Random Glucose 152 Total Protein 6.4 Albumin 2.5 Calcium Level 8.7 Alkaline Phosphatase 242 Aspartate Amino Transf (AST/SGOT) 37 Alanine Aminotransferase (ALT/SGPT) 36 Total Bilirubin 1.6 Sodium Level 140 Potassium Level 3.6 Chloride Level 102 Carbon Dioxide Level 27.8 Anion Gap 10 Estimat Glomerular Filtration Rate 72 Total Creatine Kinase 50 Troponin I 0.29 B-Type Natriuretic Peptide 871 Urine Color YELLOW Urine Turbidity HAZY Urine pH 6.0 Urine Specific [place] 1.024 Urine Protein 100 Urine Glucose (UA) NEG Urine Ketones NEG Urine Occult Blood NEG Urine Nitrite NEG Urine Bilirubin NEG Urine Urobilinogen 8.0 Urine Leukocyte Esterase NEG Urine WBC 3 Urine Squamous Epithelial Cells <1 Urine Calcium Oxalate Crystals MANY Urine Hyaline Casts 13 Urine Granular Casts 2 Urine Mucus MOD Microscopic Urinalysis Comment CULT NOT INDICATED Blood Gas Puncture Site LT RADIAL Blood Gas Patient Temperature 98.6 Blood Gas HCO3 28 Blood Gas Base Excess 4.2 Blood Gas Oxygen Saturation 97 Arterial Blood pH 7.44 Arterial Blood Partial Pressure CO2 43 Arterial Blood Partial Pressure O2 138 Arterial Blood Oxygen Content 19.3 Arterial Blood Carboxyhemoglobin 1.4 Arterial Blood Methemoglobin 0.5 Blood Gas Hemoglobin 14.0 Oxygen Delivery Device NASAL CANNULA Blood Gas Liter Flow 4 Result Diagram: 06/16/17214206/16/172142 Caprini VTE Risk Assessment Caprini VTE Risk Assessment: Mod/High Risk (score >= 2) Caprini Risk Assessment Model Point Value = 1 Point Value = 2 Point Value = 3 Point Value = 5 Age 41-60 Minor surgery BMI > 25 kg/m2 Swollen legs Varicose veins or History of unexplained or recurrent spontaneous Oral contraceptives or hormone replacement Sepsis (< 1 month) Serious lung disease, including pneumonia (< 1 month) Abnormal pulmonary function Acute myocardial infarction Congestive heart failure (< 1 month) History of inflammatory bowel disease Medical patient at bed rest Age 61-74 Arthroscopic surgery Major open surgery (> 45 min) Laparoscopic surgery (> 45 min) Malignancy Confined to bed (> 72 hours) Immobilizing plaster cast Central venous access Age >= 75 History of VTE Family history of VTE Factor V Leiden Prothrombin [id number] Lupus anticoagulant Anticardiolipin antibodies Elevated serum homocysteine Heparin-induced thrombocytopenia Other congenital or acquired thrombophilia Stroke (< 1 month) Elective arthroplasty Hip, pelvis, or leg fracture Acute spinal cord injury (< 1 month) Prophylaxis Regimen Total Risk Factor Score Risk Level Prophylaxis Regimen 0-1 Low Early ambulation 2 Moderate Order ONE of the following: *Sequential Compression Device (SCD) *Heparin 5000 units SQ BID 3-4 Higher Order ONE of the following medications: *Heparin 5000 units SQ TID *Enoxaparin/Lovenox 40 mg SQ daily (WT < 150 kg, CrCl > 30 mL/min) *Enoxaparin/Lovenox 30 mg SQ daily (WT < 150 kg, CrCl > 10-29 mL/min) *Enoxaparin/Lovenox 30 mg SQ BID (WT < 150 kg, CrCl > 30 mL/min) AND/OR *Sequential Compression Device (SCD) 5 or more Highest Order ONE of the following medications: *Heparin 5000 units SQ TID (Preferred with Epidurals) *Enoxaparin/Lovenox 40 mg SQ daily (WT < 150 kg, CrCl > 30 mL/min) *Enoxaparin/Lovenox 30 mg SQ daily (WT < 150 kg, CrCl > 10-29 mL/min) *Enoxaparin/Lovenox 30 mg SQ BID (WT < 150 kg, CrCl > 30 mL/min) AND *Sequential Compression Device (SCD) Assessment and Plan Assessment and Plan Assessment/plan: 1. Shortness of breath/COPD exacerbation/CHF exacerbation/LE edema Patient found to be hypoxic by EMS with an oxygen saturation in the 50s ABG 7.44/43/138/28 BNP elevated at 871 Chest x-ray significant for vascular and left sided effusion, personally reviewed Maintaining O2 sats on 4 L nasal cannula (not on home oxygen) IV Lasix Duo nebs Supplemental oxygen as needed Patient may benefit from home oxygen, respiratory walk test pending 2. Non-small cell lung cancer The patient's oncologist, Dr. Wong consulted, appreciate recommendations 3. Elevated troponin Initial troponin 0.29 EKG showed normal sinus rhythm without ST segment elevation or depression, personally reviewed Likely secondary to demand ACS rule out pending; serial troponins/EKGs 4. Atrial fibrillation Continue home amiodarone, metoprolol Continue anticoagulation with aspirin/Plavix 5. CAD/hyperlipidemia/hyperthyroidism/GERD Continue home medications FEN NPO Electrolytes: monitor and replete prn Heparin Physician Certification 2 Midnight Certification Type: Admission for Inpatient Services Order for Inpatient Services The services are ordered in accordance with Medicare regulations or non- Medicare payer requirements, as applicable. In the case of services not specified as inpatient-only, they are appropriately provided as inpatient services in accordance with the 2-midnight benchmark. Estimated LOS (days): 2 2 days is the estimated time the patient will need to remain in the hospital, assuming treatment plan goals are met and no additional complications. Post-Hospital Plan: Not yet determined Christianne Betancur MD Jun 17, 2017 00:08
[2017-06-17] MEDS: HEPARIN SODIUM - SQ 10,000 UNITS/ML VIAL SQ SCH ×2 (01:31→08:00)
[2017-06-17 04:06] LABS: AUTOMATED NEUTROPHIL # 4.1 TH/MM3 (1.8-7.7); BASOPHIL % 0.4 % (0.0-2.0); EOSINOPHIL % 0.1 % (0.0-4.0); HEMOGLOBIN 13.7 GM/DL (11.6-15.3); LYMPH % 13.1 % (9.0-44.0); LYMPHOCYTE # 0.7 TH/MM3 (1.0-4.8); MEAN CELL VOLUME 105.2 FL (80.0-100.0); MEAN CORPUSCULAR HEMOGLOBIN 34.4 PG (27.0-34.0); MEAN CORPUSCULAR HGB CONC 32.7 % (32.0-36.0); MONO % 7.1 % (0.0-8.0); MONOCYTE # 0.4 TH/MM3 (0-0.9); NEUT % 79.3 % (16.0-70.0); PLATELET COUNT 43 TH/MM3 (150-450); RED BLOOD COUNT 3.99 MIL/MM3 (4.00-5.30); RED CELL DISTRIBUTION WIDTH 18.2 % (11.6-17.2); WHITE BLOOD COUNT 5.1 TH/MM3 (4.0-11.0)
[2017-06-17 04:08] LABS: BICARBONATE 34.3 MEQ/L (21.0-32.0); CALCIUM 8.6 MG/DL (8.5-10.1); CREATININE 0.63 MG/DL (0.50-1.00)
[2017-06-17 04:16] LABS: TROPONIN I 0.28 NG/ML (0.02-0.05)
--- NOTE | 2017-06-17 05:21 | EKG ---
Date Performed: 06/17/2017 Time Performed: 04:36:06 PTAGE: 71 years EKG: Sinus rhythm POSSIBLE LEFT ATRIAL ENLARGEMENT LEFT AXIS DEVIATION INCOMPLETE RIGHT BUNDLE BRANCH BLOCK POSSIBLE A NTERIOR MYOCARDIAL INFARCTION ABNORMAL ECG PREVIOUS TRACING : 06/16/2017 21.27 No significant change from previous tracing noted. DOCTOR: William Arellano Interpretating Date/Time 06/17/2017 05:19:01
[2017-06-17] MEDS: NYSTATIN 100,000 U/GM PWD 15 GM BTL TOPICAL SCH ×2 (05:59→19:02)
[2017-06-17] MEDS: LISINOPRIL 5 MG TAB PO SCH (09:00)
[2017-06-17] MEDS: AMIODARONE 200 MG TAB PO SCH (09:00)
[2017-06-17] MEDS: ASPIRIN 325 MG TAB PO SCH (09:00)
[2017-06-17] MEDS: METOPROLOL TARTRATE 25 MG TAB PO SCH ×2 (09:00→21:07)
[2017-06-17] MEDS: FUROSEMIDE 20 MG/2 ML VIAL IV PUSH SCH ×2 (09:00→18:00)
[2017-06-17] MEDS: PANTOPRAZOLE SOD 40 MG DELAYED RELEASE TAB PO SCH (09:30)
[2017-06-17] MEDS: POTASSIUM CHLORIDE 10 MEQ CAP PO SCH ×2 (09:30→21:05)
[2017-06-17] MEDS: SODIUM CHLORIDE 0.9% FLUSH 10 ML FLUSH IV FLUSH SCH ×2 (09:33→21:05)
[2017-06-17 11:17] LABS: TROPONIN I 0.28 NG/ML (0.02-0.05)
[2017-06-17 11:20] LABS: MAGNESIUM 1.5 MG/DL (1.5-2.5)
[2017-06-17] MEDS: PROPYLTHIOURACIL 50 MG TAB PO SCH ×2 (12:06→21:07)
[2017-06-17] MEDS: POTASSIUM CHLORIDE 10 MEQ CONTROLLED RELEASE TAB PO SCH ×2 (12:07→19:03)
--- NOTE | 2017-06-17 14:12 | HHI.PR ---
Subjective Remarks Follow-up on patient with CHF exacerbation. Patient seen and examined. She continues to have shortness of breath though it has improved since her admission. She denies any complaints of chest pain. She denies any fever chills. Denies any nausea vomiting or abdominal pain. States swelling her lower extremity's has improved significantly. She is urinating without any difficulties. Patient complains of choking and coughing when drinking liquids or eating food. She also has a sensation of items getting stuck in her throat. Her last chemo treatment was 6 weeks ago. Objective Vitals Vital Signs Date Time Temp Pulse Resp B/P (MAP) Pulse Ox O2 Delivery O2 Flow Rate FiO2 06/17/17 11:59 97.8 86 16 105/70 (82) 95 Manual Cuff/Auscultation 06/17/17 09:30 82/53 (63) 06/17/17 08:55 97.6 66 16 88/53 (65) 95 06/17/17 04:29 98.0 72 18 99/67 (78) 99 06/17/17 04:07 70 06/17/17 01:18 98 Nasal Cannula 4.00 06/17/17 00:31 98 06/17/17 00:23 97.8 72 18 109/72 (84) 06/16/17 21:52 100 Nasal Cannula 4.00 06/16/17 21:52 100 Nasal Cannula 4.00 06/16/17 21:14 97.7 72 24 131/70 (90) I/O 06/16/17 06/16/17 06/16/17 06/17/17 06/17/17 06/17/17 07:00 15:00 23:00 07:00 15:00 23:00 # Voids 2 Result Diagram: 06/17/17 0332 06/17/17 033 Imaging Last Impressions Chest X-Ray 06/16/172126 Signed Impressions: Service Date/Time: Friday, June 16, 2017 21:33 - CONCLUSION: Left hilar mass with worsening ipsilateral consolidation and effusion. Braden Ferrer MD Objective Remarks GENERAL: Thin, ill appearing female, INAD. Awake and alert. Sitting up in bed. SKIN: No rashes, ecchymoses or lesions. Cool and dry. HEAD: Atraumatic. Normocephalic. No temporal or scalp tenderness. EYES: Pupils equal round and reactive. Extraocular motions intact. No scleral icterus. No injection or drainage. ENT: Nose without bleeding or purulent drainage. Airway patent. MMM. NECK: Trachea midline. No JVD or lymphadenopathy. CARDIOVASCULAR: Regular rate and rhythm without murmurs, gallops, or rubs. RESPIRATORY: No accessory muscles. Bilateral diminished breath sounds, L>R. Mild diffuse wheezing noted. GASTROINTESTINAL: Abdomen soft, non-tender, nondistended. No hepato-splenomegaly , or palpable masses. No guarding. MUSCULOSKELETAL: 2+ bilateral LE edema extending up into the thighs with trace edema. NEUROLOGICAL: Awake and alert. Cranial nerves II through XII grossly intact. Motor and sensory grossly within normal limits. Normal speech. PSYCHIATRIC: Appropriate mood and affect. Normal judgment and insight. Medications and IVs Current Medications Medications (Trade) Dose Ordered Sig/Daniel Route Start Time Stop Time Status Last Admin (NS Flush) 2 ml UNSCH PRN IV FLUSH 06/16/17 23:15 (NS Flush) 2 ml BID IV FLUSH 06/17/17 09:00 06/17/17 09:33 (Tylenol) 650 mg Q4H PRN PO 06/16/17 23:15 (Zofran Inj) 4 mg Q6H PRN IVP 06/16/17 23:15 (Narcan Inj) 0.4 mg UNSCH PRN IV PUSH 06/16/17 23:15 (Milk Of Magnesia Liq) 30 ml Q12H PRN PO 06/16/17 23:15 (Senokot) 17.2 mg Q12H PRN PO 06/16/17 23:15 (Dulcolax Supp) 10 mg DAILY PRN RECTAL 06/16/17 23:15 (Lactulose Liq) 30 ml DAILY PRN PO 06/16/17 23:15 (Lasix Inj) 20 mg BID@0900,1800 IV PUSH 06/17/17 09:00 (Cordarone) 200 mg DAILY PO 06/17/17 09:00 (Aspirin) 325 mg DAILY PO 06/17/17 09:00 (Prinivil) 5 mg DAILY PO 06/17/17 09:00 (Lopressor) 25 mg BID PO 06/17/17 09:00 (KCl) 10 meq BID PO 06/17/17 09:00 06/17/17 09:30 (Ptu) 100 mg Q12HR PO 06/17/17 09:00 06/17/17 12:06 (Protonix) 40 mg DAILY PO 06/17/17 09:00 06/17/17 09:30 Patient Own Medication PT OWN MED: (Paroxet... DAILY PO 06/17/17 09:00 Future Hold (Lipitor) 20 mg HS PO 06/17/17 21:00 (Duoneb Neb) 1 ampule Q4HR NEB PRN NEB 06/17/17 00:15 (Mycostatin Powder) 1 applic Q12H TOPICAL 06/17/17 06:00 06/17/17 05:59 (KCl) 40 meq Q4HR PO 06/17/17 12:00 06/17/17 16:01 06/17/17 12:07 A/P Assessment and Plan Assessment/plan: 1. Shortness of breath/COPD exacerbation/CHF exacerbation/LE edema Acute on chronic systolic heart failure Per review of previous cardiology note, echocardiogram with EF 35%. Patient status post AICD [address] Mondragon Patient found to be hypoxic by EMS with an oxygen saturation in the 50s ABG 7.44/43/138/28 BNP elevated at 871 Chest x-ray significant for consolidation and moderate to large effusion seen at the left lung base, worse. There is left volume loss and masslike opacity of the left hilar region. Obtain Chest US Maintaining O2 sats on 4 L nasal cannula (not on home oxygen). Continue supplemental oxygen as needed IV Lasix. Monitor electrolytes Duo nebs Patient may benefit from home oxygen, respiratory walk test prior to discharge 2. Non-small cell lung cancer The patient's oncologist, Dr. Wong consulted, appreciate recommendations 3. Elevated troponin troponin 0.29 -> 0.28 -> 0.28 EKG showed normal sinus rhythm without ST segment elevation or depression, personally reviewed Likely secondary to demand Consult Cardiology, appreciate recommendations 4. Atrial fibrillation Continue home amiodarone, metoprolol Continue anticoagulation with aspirin/Plavix 5. CAD/hyperlipidemia/hyperthyroidism/GERD Currently hypotensive. Hold parameters placed on antihypertensives. Continue home medications 6. Hypokalemia K 3.1 po repletion 7. Dysphagia Speech therapy consulted for swallow evaluation Barium swallow ordered 8. Hyperthyroidism on Propylthiouracil -obtain TSH level FEN Heart healthy low salt diet Electrolytes: monitor and replete prn Heparin Dayanna Knowles Jun 17, 2017 14:12
[2017-06-17] MEDS ORDERED: MAGNESIUM OXIDE 400 MG TAB PO ONE (14:15)
--- NOTE | 2017-06-17 15:32 | RADRPT ---
EXAM DATE/TIME: 06/17/2017 14:56 [facility] COMPARISON: No previous studies available for comparison. INDICATIONS : Coughing, short of breath, dysphagia, hoarse FLUORO TIME: 1.1 minutes IMAGE COUNT: 10 CONTRAST: 1. Liquid E-Z Paque Barium Sulfate (60% w/v, 41% w.w) MEDICAL HISTORY : Carcinoma, lung. Cardiovascular disease. Congestive heart failure. chemo SURGICAL HISTORY : CABG. Pacemaker. ENCOUNTER: Initial ACUITY: 1 day PAIN SCORE: 0/10 LOCATION: Bilateral esophagus FINDINGS: Limited barium swallow examination. Patient unable to stand or sit. AP spot images were obtained afte r the patient swallowed thin barium suspension. Mildly delayed esophageal motility noted. No fixed fo carlos alberto narrowing identified. CONCLUSION: Mildly delayed passage of barium through the esophagus. No fixed focal narrowing identified. No gross evidence of aspiration. Feliciano Rm MD on June 17, 2017 at 15:27 Board Certified Radiologist. This report was verified electronically.
[2017-06-17] MEDS: RESP: ALBUTEROL 2.5 MG/IPRATROPIUM 0.5 MG NEB (SCH) NEB ×2 (16:00→19:33)
--- NOTE | 2017-06-17 16:22 | RADRPT ---
EXAM DATE/TIME: 06/17/2017 15:47 [facility] COMPARISON: No previous studies available for comparison. EXTERNAL COMPARISON : [facility], CT CHEST W/CONTRAST, April 01, 2017, PET/CT TUMOR, December 10, 2016. INDICATIONS : Left pleural effusion. MEDICAL HISTORY : Myocardial infarction. Congestive heart failure. Carcinoma, lung. Thyroid disease. Coronary artery di sease. COPD. GERD. HTN. Left leg DVT. Anxiety. SURGICAL HISTORY : Tonsillectomy. CABG. Hysterectomy. Chemotherapy. Varicose vein surgery. ENCOUNTER: Initial ACUITY: 1 week PAIN SCORE: 0/10 LOCATION: Left chest MEASUREMENTS: SKIN TO PARIETAL PLEURA: 1.4 cm SKIN TO MAX SAFE DEPTH: 3.9 cm ESTIMATED FLUID VOLUME: 146 cc FLUID COMPOSITION: simple FINDINGS: Pleural effusion as above. A zarina was placed on the skin surface superficial to the pleural fluid col lection. CONCLUSION: Left pleural effusion marked for thoracentesis. Feliciano Rm MD on June 17, 2017 at 16:18 Board Certified Radiologist. This report was verified electronically.
[2017-06-17] MEDS: ATORVASTATIN 20 MG TAB PO SCH (21:08)
[2017-06-17] MEDS: ACETAMINOPHEN 325 MG TAB PO PRN (21:20)
[2017-06-18] VITALS (16 sets, daily range): BP systolic 94–140; BP diastolic 64–90; PULSE 61–84; RESP 18–20; TEMP 97.4–98.4; O2SAT 95–98
--- NOTE | 2017-06-18 00:27 | MB ---
cc: Scotty Wong MD DATE: 06/17/2017 REASON FOR CONSULTATION: Consult requested by hospitalist for followup of non-small cell lung cancer. HISTORY OF PRESENT ILLNESS: Manuela is a 71-year-old female. She was recently diagnosed with stage III non-small cell lung cancer. Combined radiation and chemotherapy was recommended. However, the patient had declined radiation therapy, as she was concerned that the radiation may cause damage to the AICD. Therefore, she had decided not to have radiation treatment. She was treated with chemotherapy for several cycles. The patient was admitted to this hospital about 6 weeks ago for exacerbation of congestive heart failure. She, at that time, stopped taking her diuretic. The patient was treated for congestive heart failure. Her ejection fraction was around 35%. She was discharged and was asked to be followed up by her flagman. The patient missed her followup appointment for continuation of the chemotherapy. She stated that she was admitted to [facility] and had the AICD replaced. The details of those are not available. The patient is now admitted to the hospital for shortness of breath. She again is found to have exacerbation of congestive heart failure. She has swelling of both lower legs. She is complaining of shortness of breath. The chest x-ray does show pleural effusion. I have been asked to see the patient for further evaluation. The patient's performance status has declined. She stated that she can hardly even walk. She has swelling of both lower legs. She gets short of breath when she walks. Her appetite is poor. She is losing weight. The rest of the review of systems is negative. PAST MEDICAL HISTORY: Non-small cell lung cancer, squamous cell carcinoma, anxiety disorder, atrial fibrillation, COPD, congestive heart failure, coronary artery disease, status post coronary artery bypass surgery, depression, gastroesophageal reflux disease, hypercholesterolemia, hypothyroidism, history of stroke. PAST SURGICAL HISTORY: Cardioversion, colonoscopy, AICD, coronary artery bypass surgery, hysterectomy, Infusaport, defibrillator. ALLERGIES: CODEINE, PAXIL AND PENICILLIN. MEDICATIONS: Prior to coming to the hospital, amiodarone, aspirin, multivitamin, Lasix, inhaler, lisinopril, metoprolol, omeprazole, Paxil, potassium and propylthiouracil. FAMILY HISTORY: The patient's mother is alive. Her father . She has 5 brothers, no sisters, 2 sons and a daughter. One of the brothers from a bike accident. SOCIAL HISTORY: She is . She stopped smoking a year ago, and she used to smoke 2-1/2 packs a day for at least 30 years. She does not drink alcohol. PHYSICAL EXAMINATION: GENERAL: This is a well-developed, chronically ill-appearing white female in mild respiratory distress. VITAL SIGNS: Temperature 97.8, heart rate is 86, blood pressure 105/70, O2 saturation 95% on room air. HEAD, EYES, EARS, NOSE, AND THROAT: Pupils equal, round, reactive to light and accommodation, extraocular movements intact. Anicteric. No oral lesions noted. No thrush noted. NECK: Supple. No JVD. No masses noted. LUNGS: Decreased breath sounds on the left side. HEART: Regular rate and rhythm. No murmur heard. ABDOMEN: Soft and nontender. No hepatosplenomegaly. No abnormal bowel sounds. No guarding or rigidity noted. EXTREMITIES: No pedal edema. No cyanosis, no clubbing. NEUROLOGIC: Awake, alert, oriented x3. Sensory and motor seem to be intact. SKIN: No bruises or petechiae noted. BREASTS: No masses noted. LYMPH NODES: No cervical, supraclavicular, or axillary lymphadenopathy noted. BACK: There is no spinal tenderness noted. ASSESSMENT: 1. Non-small cell lung cancer, stage III, status post chemotherapy alone and has declined radiation therapy. 2. Exacerbation of congestive heart failure. 3. Multiple medical problems. PLAN: I have reviewed her available records, and I have discussed with the patient regarding further treatment of lung cancer. The patient's performance status has declined remarkably. She can hardly walk now. She has swelling of both lower legs. She has pleural effusion also. The chest x-ray showed a left hilar mass with worsening ipsilateral consolidation and an effusion. My recommendation is to get a CAT scan of the chest and compare it with the previous CAT scan done at [facility]. If it shows progressive disease, then my recommendation is to consult hospice for best supportive care, as she is not a candidate for any further chemotherapy due to poor performance status and multiple medical problems, especially the congestive heart failure. She still has thrombocytopenia and macrocytosis. I believe she may have developed myelodysplastic syndrome. She cannot have any further chemotherapy due to the thrombocytopenia and possibility of underlying myelodysplasia. Therefore, my recommendation is for best supportive care with hospice. I will get the CAT scan of the chest, and I will discuss with her the results and we will go from there. Thank you for asking my opinion. MD HESHAM Jimenez/MIKEY , 11:24 PM , 12:26 AM YURY
[2017-06-18] MEDS: NYSTATIN 100,000 U/GM PWD 15 GM BTL TOPICAL SCH ×2 (05:42→18:13)
[2017-06-18 07:18] LABS: BICARBONATE 30.1 MEQ/L (21.0-32.0); CALCIUM 8.9 MG/DL (8.5-10.1); CREATININE 0.83 MG/DL (0.50-1.00)
[2017-06-18] MEDS: RESP: ALBUTEROL 2.5 MG/IPRATROPIUM 0.5 MG NEB (SCH) NEB ×4 (07:23→20:20)
[2017-06-18] MEDS: ASPIRIN 325 MG TAB PO SCH ×2 (09:00→09:09)
[2017-06-18] MEDS: POTASSIUM CHLORIDE 10 MEQ CAP PO SCH ×2 (09:05→20:51)
[2017-06-18] MEDS: METOPROLOL TARTRATE 25 MG TAB PO SCH ×2 (09:05→20:52)
[2017-06-18] MEDS: PAROXETINE 20 MG PO SCH (09:06)
[2017-06-18] MEDS: PANTOPRAZOLE SOD 40 MG DELAYED RELEASE TAB PO SCH (09:06)
[2017-06-18] MEDS: PROPYLTHIOURACIL 50 MG TAB PO SCH ×2 (09:06→20:51)
[2017-06-18] MEDS: SODIUM CHLORIDE 0.9% FLUSH 10 ML FLUSH IV FLUSH SCH ×2 (09:07→20:52)
[2017-06-18] MEDS: FUROSEMIDE 20 MG/2 ML VIAL IV PUSH SCH ×2 (09:09→18:13)
--- NOTE | 2017-06-18 10:25 | HHI.PR ---
Subjective Remarks Follow-up on patient with CHF exacerbation. Patient seen and examined. Patient reports her breathing is unchanged. She denies any fever or chills. She denies any chest pain. She continues to have dyspnea but is now satting well on 2LNC improved from 4L yesterday. She reports 2 episodes of watery diarrhea. She denies any nausea, vomiting or abdominal pain. Objective Vitals Vital Signs Date Time Temp Pulse Resp B/P (MAP) Pulse Ox O2 Delivery O2 Flow Rate FiO2 06/18/17 09:03 97.6 68 18 127/69 (88) 97 06/18/17 09:03 Nasal Cannula 2.00 06/18/17 08:19 104/68 (80) 06/18/17 07:26 96 Nasal Cannula 2.00 06/18/17 07:21 97.4 66 20 96 06/18/17 04:45 65 06/18/17 03:38 95 Nasal Cannula 2.00 06/18/17 03:25 84 18 140/90 (107) 98 06/18/17 00:11 97.8 63 18 98/64 (75) 98 06/18/17 00:05 61 06/17/17 21:05 Nasal Cannula 4.00 06/17/17 20:17 72 18 109/72 (84) 98 06/17/17 20:00 98 Nasal Cannula 2.00 06/17/17 14:37 97.6 65 18 93/58 (70) 95 06/17/17 12:45 66 06/17/17 11:59 97.8 86 16 105/70 (82) 95 Manual Cuff/Auscultation I/O 06/17/17 06/17/17 06/17/17 06/18/17 06/18/17 06/18/17 07:00 15:00 23:00 07:00 15:00 23:00 Intake Total 200 ml Output Total 200 ml Balance 0 ml Intake Oral 200 ml IV Total 0 ml Output Urine Total 200 ml # Voids 2 # Bowel Movements 1 Result Diagram: 06/17/17 0332 06/18/17 0617 Imaging Last Impressions Chest Ultrasound 06/17/17 0000 Signed Impressions: Service Date/Time: Saturday, June 17, 2017 15:47 - CONCLUSION: Left pleural effusion marked for thoracentesis. Feliciano Rm MD Barium Swallow X-Ray 06/17/17 0000 Signed Impressions: Service Date/Time: Saturday, June 17, 2017 14:56 - CONCLUSION: Mildly delayed passage of barium through the esophagus. No fixed focal narrowing identified. No gross evidence of aspiration. Feliciano Rm MD Chest X-Ray [id number]/16/[id number] Signed Impressions: Service Date/Time: Friday, June 16, 2017 21:33 - CONCLUSION: Left hilar mass with worsening ipsilateral consolidation and effusion. Braden Ferrer MD Objective Remarks GENERAL: Thin, ill appearing female, INAD. Awake and alert. Sitting up in bed. SKIN: Cool and dry. No rash. (+)Port right upper chest with no e/o infection. HEAD: Atraumatic. Normocephalic. No temporal or scalp tenderness. EYES: Pupils equal round and reactive. Extraocular motions intact. No scleral icterus. No injection or drainage. ENT: Nose without bleeding or purulent drainage. Airway patent. MMM. NECK: Trachea midline. CARDIOVASCULAR: Regular rate and rhythm without murmurs, gallops, or rubs. RESPIRATORY: No accessory muscles. Bilateral diminished breath sounds, L>R. Mild diffuse wheezing noted. GASTROINTESTINAL: Abdomen soft, non-tender, nondistended. No hepato-splenomegaly , or palpable masses. No guarding. MUSCULOSKELETAL: 2+ bilateral LE edema extending up into the thighs with trace edema. BLE tender to palpation. Calves supple. NEUROLOGICAL: Awake and alert. Cranial nerves II through XII grossly intact. Motor and sensory grossly within normal limits. Normal speech. PSYCHIATRIC: Appropriate mood and affect. Normal judgment and insight. Medications and IVs Current Medications Medications (Trade) Dose Ordered Sig/Daniel Route Start Time Stop Time Status Last Admin (NS Flush) 2 ml UNSCH PRN IV FLUSH 06/16/17 23:15 (NS Flush) 2 ml BID IV FLUSH 06/17/17 09:00 06/18/17 09:07 (Tylenol) 650 mg Q4H PRN PO 06/16/17 23:15 06/17/17 21:20 (Zofran Inj) 4 mg Q6H PRN IVP 06/16/17 23:15 (Narcan Inj) 0.4 mg UNSCH PRN IV PUSH 06/16/17 23:15 (Milk Of Magnesia Liq) 30 ml Q12H PRN PO 06/16/17 23:15 (Senokot) 17.2 mg Q12H PRN PO 06/16/17 23:15 (Dulcolax Supp) 10 mg DAILY PRN RECTAL 06/16/17 23:15 (Lactulose Liq) 30 ml DAILY PRN PO 06/16/17 23:15 (Lasix Inj) 20 mg BID@0900,1800 IV PUSH 06/17/17 09:00 06/18/17 09:09 (Cordarone) 200 mg DAILY PO 06/17/17 09:00 (Aspirin) 325 mg DAILY PO 06/17/17 09:00 (Prinivil) 5 mg DAILY PO 06/17/17 09:00 (Lopressor) 25 mg BID PO 06/17/17 09:00 06/18/17 09:05 (KCl) 10 meq BID PO 06/17/17 09:00 06/18/17 09:05 (Ptu) 100 mg Q12HR PO 06/17/17 09:00 06/18/17 09:06 (Protonix) 40 mg DAILY PO 06/17/17 09:00 06/18/17 09:06 Patient Own Medication PT OWN MED: (Paroxet... DAILY PO 06/17/17 09:00 Future hold 06/18/17 09:06 (Lipitor) 20 mg HS PO 06/17/17 21:00 06/17/17 21:08 (Duoneb Neb) 1 ampule Q4HR NEB PRN NEB 06/17/17 00:15 (Mycostatin Powder) 1 applic Q12H TOPICAL 06/17/17 06:00 06/18/17 05:42 (Duoneb Neb) 1 ampule Q4HR WHILE AWAKE NEB NEB 06/17/17 16:00 06/18/17 11:33 A/P Assessment and Plan Assessment/plan: 1. Shortness of breath/COPD exacerbation/CHF exacerbation/LE edema Acute on chronic systolic heart failure Per review of previous cardiology note, echocardiogram with EF 35%. Patient status post AICD [address] Mondragon Patient found to be hypoxic by EMS with an oxygen saturation in the 50s. ABG 7.44/43/138/28. BNP elevated at 871 Chest x-ray significant for consolidation and moderate to large effusion seen at the left lung base, worse. There is left volume loss and masslike opacity of the left hilar region. Chest US with 146cc fluid -continue on supplemental oxygen to maintain adequate O2 saturation -continue on IV Lasix. Monitor electrolytes. Strict I&Os. -Duonebs scheduled -Patient may benefit from home oxygen, respiratory walk test prior to discharge 2. Non-small cell lung cancer The patient's oncologist, Dr. Wong consulted, appreciate recommendations Chest CT ordered by Dr. Wong revealing stable left suprahilar mass. Per Dr. Wong, patient not a candidate for additional chemotherapy due to poor performance status Patient declines hospice at this time but is agreeable to palliative care -Consult palliative care 3. Elevated troponin troponin 0.29 -> 0.28 -> 0.28 Hypotensive EKG showed normal sinus rhythm without ST segment elevation or depression Likely secondary to demand -Consult Cardiology, appreciate recommendations 4. Atrial fibrillation -Continue home amiodarone, metoprolol -Continue anticoagulation with aspirin/Plavix 5. CAD/hyperlipidemia/hyperthyroidism/GERD Hypotensive. Hold parameters placed on antihypertensives. BP better today. -Continue home medications 6. Hypokalemia -resolved s/p repletion 7. Dysphagia Dysphonia Speech therapy consulted for swallow evaluation with recs for mechanical soft/ thin liquid diet Barium swallow ordered showing no aspiration, mildly delayed passage of barium 8. Hyperthyroidism on Propylthiouracil TSH 26.7 -obtain T3 and T4 levels 9. BLE edema and pain -obtain doppler US to r/o DVT 10. Thrombocytopenia Macrocytosis Possible myelodysplastic syndrome No e/o active bleeding -continue on Plavix/ASA for now -continue to monitor platelets closely. Repeat CBC in am. FEN Heart healthy low salt diet Electrolytes: monitor and replete Dayanna Abernathy Jun 18, 2017 10:25
[2017-06-18] MEDS ORDERED: IOHEXOL 350 MG/ML 10 ML VIAL (for RAD DIAG) IVCONTRAST ONE (10:49)
--- NOTE | 2017-06-18 11:44 | RADRPT ---
EXAM DATE/TIME: 06/18/2017 10:49 [facility] COMPARISON: Prior study 05/13/17. INDICATIONS : Progression of lung caner IV CONTRAST: 65 cc Omnipaque 350 (iohexol) IV RADIATION DOSE: 13.78 CTDIvol (mGy) MEDICAL HISTORY : Cardiovascular disease. Hypertension. Carcinoma, lung. SURGICAL HISTORY : Hysterectomy. Pacemaker. ENCOUNTER: Initial ACUITY: 1 day PAIN SCALE: 0/10 LOCATION: Chest TECHNIQUE: Volumetric scanning of the chest was performed. Using automated exposure control and adjustment of t he mA and/or kV according to patient size, radiation dose was kept as low as reasonably achievable to obtain optimal diagnostic quality images. DICOM format image data is available electronically for review and comparison. Follow-up recommendations for detected pulmonary nodules are based at a minimum on nodule size and pa tient risk factors according to Fleischner Society Guidelines. FINDINGS: CT scan of the chest performed with IV contrast. There again is a large left-sided pleural effusion with extensive atelectasis involving both the left upper lobe and left lower lobes. The lef t upper lobe pulmonary artery is decreased in size secondary to a underlying mass. The large low density mass ext ends into the AP Window and exhibits mass effect upon the main pulmonary artery. The mass is similar to the [facility] exam. I do not see any evidence of pulmonary embolism. There is a small right pleural effusion. Pacemaker device overlies the left chest wall. Upper abdomen is unremarkable. CONCLUSION: The patient has a stable left suprahilar mass causing narrowing of both the left upper lobe bronchus and the pulmonary artery to the left upper lobe. The mass is stable in size since the April exam wing suring 5.3 x 6.2 cm. No evidence of pulmonary embolism. Poncho Omer MD on June 18, 2017 at 11:14 Board Certified Radiologist. This report was verified electronically.
--- NOTE | 2017-06-18 12:27 | RADRPT ---
EXAM DATE/TIME: 06/18/2017 11:42 [facility] COMPARISON: No previous studies available for comparison. INDICATIONS : Bilateral leg pain. MEDICAL HISTORY : Myocardial infarction. Congestive heart failure. Carcinoma, lung. Thyroid disease.Coronary artery dis ease. COPD. GERD. HTN. Left leg DVT. Anxiety. SURGICAL HISTORY : None. Tonsillectomy. CABG. Hysterectomy. Chemotherapy. Varicose vein surgery. ENCOUNTER: Subsequent ACUITY: 1 month PAIN SCORE: 6/10 LOCATION: Bilateral legs. TECHNIQUE: Venous ultrasound of the left and right leg was performed from the inguinal ligament to the proximal calf. Real-time, color Doppler and spectral tracing, compression and augmentation techniques were us ed. FINDINGS: RIGHT LEG: There is normal compressibility of the deep venous system from the inguinal region to the proximal ca lf. No echogenic clot is seen in the lumen of the common femoral, femoral, popliteal, and posterior tibial veins. There is a normal response of the venous system to proximal and distal augmentation an d respiration. LEFT LEG: There is normal compressibility of the deep venous system from the inguinal region to the proximal ca lf. No echogenic clot is seen in the lumen of the common femoral, femoral, popliteal, and posterior tibial veins. There is a normal response of the venous system to proximal and distal augmentation an d respiration. CONCLUSION: Normal examination. There is a small thrombosed varicosity in the left popliteal fossa Poncho Omer MD on June 18, 2017 at 12:24 Board Certified Radiologist. This report was verified electronically.
[2017-06-18] MEDS: AMIODARONE 200 MG TAB PO SCH (15:08)
[2017-06-18] MEDS: LISINOPRIL 5 MG TAB PO SCH (15:08)
--- NOTE | 2017-06-18 15:51 | PD.ONC.PN ---
Subjective Subjective Remarks Afebrile Patient frustrated as she reports her breathing is not any better States she is being kicked out of her apartment on the due to her being belligerent when drunk Reports she is not interested in hospice at this time Objective Data Date Time Temp Pulse Resp B/P (MAP) Pulse Ox O2 Delivery O2 Flow Rate FiO2 06/18/17 12:12 97.5 70 20 110/65 (80) 98 06/18/17 09:03 97.6 68 18 127/69 (88) 97 06/18/17 09:03 Nasal Cannula 2.00 06/18/17 08:19 104/68 (80) 06/18/17 07:26 96 Nasal Cannula 2.00 06/18/17 07:21 97.4 66 20 96 06/18/17 07:10 64 06/18/17 04:45 65 06/18/17 03:38 95 Nasal Cannula 2.00 06/18/17 03:25 84 18 140/90 (107) 98 06/18/17 00:11 97.8 63 18 98/64 (75) 98 06/18/17 00:05 61 06/17/17 21:05 Nasal Cannula 4.00 06/17/17 20:17 72 18 109/72 (84) 98 06/17/17 20:00 98 Nasal Cannula 2.00 Result Diagram: 06/17/17 0332 06/18/17 0617 Laboratory Results Laboratory Tests Test 06/18/17 06:17 Blood Urea Nitrogen 14 MG/DL Creatinine 0.83 MG/DL Random Glucose 148 MG/DL Calcium Level 8.9 MG/DL Sodium Level 141 MEQ/L Potassium Level 4.3 MEQ/L Chloride Level 105 MEQ/L Carbon Dioxide Level 30.1 MEQ/L Anion Gap 6 MEQ/L Estimat Glomerular Filtration Rate 68 ML/MIN Imaging Studies Last 24 hours Impressions Lower Extremity Ultrasound 06/18/17 0000 Signed Impressions: Service Date/Time: Sunday, June 18, 2017 11:42 - CONCLUSION: Normal examination. There is a small thrombosed varicosity in the left popliteal fossa Poncho Omer MD Administered Medications Medications (Trade) Dose Ordered Sig/Daniel Route PRN Reason Start Time Stop Time Status Last Admin Dose Admin Sodium Chloride (NS Flush) 2 ml BID IV FLUSH 06/17/17 09:00 4/25/18 09:07 Acetaminophen (Tylenol) 650 mg Q4H PRN PO TEMP > 100.4 06/16/17 23:15 06/17/17 21:20 Furosemide (Lasix Inj) 20 mg BID@0900,1800 IV PUSH 06/17/17 09:00 06/18/17 09:09 Amiodarone HCl (Cordarone) 200 mg DAILY PO 06/17/17 09:00 06/18/17 15:08 Lisinopril (Prinivil) 5 mg DAILY PO 06/17/17 09:00 06/18/17 15:08 Metoprolol Tartrate (Lopressor) 25 mg BID PO 06/17/17 09:00 06/18/17 09:05 Potassium Chloride (KCl) 10 meq BID PO 06/17/17 09:00 06/18/17 09:05 Propylthiouracil (Ptu) 100 mg Q12HR PO 06/17/17 09:00 06/18/17 09:06 Pantoprazole Sodium (Protonix) 40 mg DAILY PO 06/17/17 09:00 06/18/17 09:06 Patient Own Medication PT OWN MED: (Paroxet... DAILY PO 06/17/17 09:00 Future hold 06/18/17 09:06 Atorvastatin Calcium (Lipitor) 20 mg HS PO 06/17/17 21:00 06/17/17 21:08 Nystatin (Mycostatin Powder) 1 applic Q12H TOPICAL 06/17/17 06:00 06/18/17 05:42 Albuterol/ Ipratropium (Duoneb Neb) 1 ampule Q4HR WHILE AWAKE NEB NEB 06/17/17 16:00 06/18/17 11:33 Objective Remarks GENERAL: Chronically ill-appearing older female resting in bed in no obvious distress SKIN: Warm and dry. HEAD: Normocephalic. EYES: No injection or drainage. NECK: Supple, trachea midline. CARDIOVASCULAR: Regular rate and rhythm without murmurs. RESPIRATORY: Clear, diminished anteriorly. On 2 L nasal cannula. GASTROINTESTINAL: Abdomen soft, non-tender, nondistended. EXTREMITIES: No cyanosis, or edema. MUSCULOSKELETAL: Adequate muscle tone. NEUROLOGICAL: No obvious focal deficit. Awake, alert, and oriented x3. Assessment/Plan Problem List: (1) Lung cancer ICD Codes: C34.90 - Malignant neoplasm of unspecified part of unspecified bronchus or lung Plan: 06/18: Palliative care consulted. Patient is a hospice candidate but is not interested at this time. Supportive care. --CT chest on 06/18 shows stable mass in the left suprahilar measuring 5.3 x 6.2 cm. --Patient not currently a candidate for future chemotherapy due to worsening performance status Hx/Workup: Patient has history of she stage III non-small cell lung cancer. Declined radiation but received chemotherapy for several cycles. The patient unfortunately has a significant history of CHF with ejection fraction about 35% . The patient reportedly has been lost to follow-up. She was admitted for CHF exacerbation Assessment 71-year-old female with history of non-small cell lung cancer admitted with CHF exacerbation Attending Statement The exam, history, and the medical decision-making described in the above note were completed with the assistance of the mid-level provider. I reviewed and agree with the findings presented. I attest that I had a [id number] encounter with the patient on the same day, and personally performed and documented my assessment and findings in the medical record. c/o SOB, weak, unable to walk. CT chest shows new left pleural effusion. I suspect this is malignant Pl effusion. She is in resp distess . Consult IR for dx and therapeutic Thoracentesis. Palliative care input noted. D/W Ms Mina ROBERTH. Pt is not a candidate for further chemo due to persistent severe thrombocytopenia and Poor PS. she is now bed ridden. She has domestic problem. I have strongly recommended hospice. She is reluctantly agreed to atleast talk to hospice. consult hospice. Ok to d/c to NH or SNF after the thoracentesis. Ena Trinh Jun 18, 2017 15:51 Lindsay Wong MD Jun 18, 2017 22:36
--- NOTE | 2017-06-18 17:18 | PD.CONS ---
Consult Service Palliative Care . Consult Requested By ROBERTH Yen . Primary Care Physician Unknown . Reason for Consultation a. To assist with evaluation and management of symptoms including: Dyspnea, anxiety. b. To assist medical decision maker(s) with: better understanding of current medical conditions; weighing benefits/burdens of medical treatment options; making medical treatment decisions. . HPI History of Present Illness Mrs. Thompson is a 71-year-old female with past medical history of stage III non- small cell lung cancer (status post chemotherapy, last treatment 6-8 weeks ago ) , CHF, COPD, CAD, atrial fibrillation, hyperthyroidism, thrombocytopenia ( likely myelodysplasia), anxiety, depression, GERD, hypercholesterolemia and prior IA. Patient was initially diagnosed with stage III non-small cell lung cancer, combined radiation and chemotherapy was recommended. Patient declined radiation therapy as she was concerned that the radiation may "melt her AICD." Patient was undergoing chemotherapy under the direction of Dr. Wong, her last chemotherapy was reportedly 6 weeks ago. She was admitted for CHF exacerbation at that time, EF 35%. Patient was later admitted to [facility] for AICD replacement, she indicates that the defibrillator was firing secondary to "battery issues." Patient presented to [facility] emergency department on 06/16/17 with worsening shortness of breath. Chest x-ray revealed left hilar mass with worsening ipsilateral consolidation and effusion. She was admitted for CHF exacerbation. Chest x-ray revealed large left pleural effusion. CT chest revealed stable left suprahilar mass causing narrowing of both of the left upper lobe bronchus and the pulmonary artery in the left upper lobe, masses stable in size since April exam measuring 5.3 x 6.2 cm, no evidence of pulmonary embolism. Dr. Wong, medical oncologist was consulted who indicates patient has had trajectory of decline, has likely developed myelodysplasia and is no longer a candidate for additional chemotherapy. His recommendation would be transition to comfort focused care with hospice support. Palliative care is consulted to assist with further clarification of medical treatment goals, symptom management and communication. Patient seen and examined in emergency department. Shanique العراقي LCSW also present. Patient indicates worsening anxiety and shortness of breath over the past few months. She confirms history of recent admission for similar symptoms. Patient is reluctant to try medication for anxiety other than her Paxil as she has had problems with use of Xanax and Lorazepam in the past. She indicates that the medications were "too strong." She is also afraid to take morphine. Patient indicates that she will notify palliative care team if she would like assistance with further symptom management, at this time she is reluctant to try any new medications. Lengthy conversation with patient regarding current medical problems, review of history, prognosis and my conversation with Dr. Wong regarding lung cancer. Spent an additional 25 minutes speaking with the patient regarding written advance directives, CODE STATUS and end-of-life wishes. She indicates that she does not want her current who she is is from to participate in her medical decision making, she indicates that she would like her son Chance "Clarke" Sole to serve as primary healthcare surrogate should she lose capacity. Completed designation of healthcare surrogate form, original given to patient , sent to be scanned into EMR. Patient desires FULL CODE at this time stating she is not ready to give up. In conversation regarding mechanical ventilation I advised her that this may leave her son having to make difficult decisions for possible transition to comfort with withdrawal of life support. She indicates that her son will be able to do this, as he has taken his father off of life support in the past. Additionally we spoke about hospice services as this was the recommendation of her oncologist. She has not yet ready to consider transition to comfort with hospice support, she indicates that she is familiar with hospice. It seems that she is a bit overwhelmed by this conversation. I have advised her to consider this conversation and that will likely continue this conversation when he sees her later today. . Review of Systems Constitutional: COMPLAINS OF: Fatigue, Change in appetite, Generalized weakness Endocrine: DENIES: Abnorml menstrual pattern, Heat/cold intolerance, Polydipsia , Polyuria, Polyphagia Eyes: COMPLAINS OF: Blurred vision (Wears glasses), DENIES: Diplopia, Eye inflammation, Eye pain, Vision loss, Photosensitivity, Double Vision, Blind spots Ears, nose, mouth, throat: DENIES: Tinnitus, Hearing loss, Vertigo, Nasal discharge, Oral lesions, Throat pain, Hoarseness, Ear Pain, Running Nose, Epistaxis, Sinus Pain, Toothache, Odynophagia Respiratory: COMPLAINS OF: Cough, Shortness of breath Cardiovascular: COMPLAINS OF: Dyspnea on Exertion, Lower Extremity Edema, Orthopnea Gastrointestinal: COMPLAINS OF: Diarrhea, Difficulty Swallowing (Recent swallow evaluation), Anorexia, Dyspepsia or heartburn, DENIES: Abdominal pain, Black stools, Bloody stools, Constipation, Nausea, Vomiting, Excessive gas, Bloating, Vomiting blood Genitourinary: DENIES: Abnormal vaginal bleeding, Dysmenorrhea, Dyspareunia, Sexual dysfunction, Urinary frequency, Urinary incontinence, Urgency, Hematuria , Dysuria, Nocturia, Vaginal discharge, Hesitancy, Dribbling, Decreased stream Musculoskeletal: DENIES: Joint pain, Muscle aches, Stiffness, Joint Swelling, Back pain, Neck pain, Decreased range of motion Integumentary: DENIES: Abnormal pigmentation, Pruritus, Rash, Nail changes, Breast masses, Breast skin changes, Nipple discharge, Nodules, Tumors, Excessive dryness, Non-healing sores Hematologic/Lymphatics: COMPLAINS OF: Bruising Immunologic/Allergic: DENIES: Eczema, Urticaria Neurologic: DENIES: Abnormal gait, Headache, Localized weakness, Paresthesias, Seizures, Speech Problems, Tremor, Poor Balance, Change in smell or taste Psychiatric: COMPLAINS OF: Anxiety, Depression Past Family Social History Coded Allergies: penicillin G (Verified Allergy, Severe, "Knocks me out", 06/16/17) Patient reports severe allergy. paroxetine (Verified Allergy, Intermediate, Hives, 06/16/17) Patient states this happens with the generic paxil codeine (Verified Adverse Reaction, Intermediate, Nausea/Vomiting, 06/16/17 ) Past Medical History Non-small cell lung cancer, stage III Anxiety Atrial fibrillation on aspirin and Plavix COPD not on home oxygen CHF CAD status post IA in 1995 Depression GERD Hyperlipidemia Hyperthyroidism . Past Surgical History AICD placement x 2 - recently replaced at [facility]. Cardioversion Cardiac catheterization Colonoscopy CABG Hysterectomy with bilateral salpingo-oophorectomy Port placement Vein stripping for varicose veins 4 Tonsillectomy . Reported Medications Reported Meds & Active Scripts Active Levaquin (Levofloxacin) 500 Mg Tablet 500 Mg PO Q24H Reported Centrum (Multiple Vitamins W/ Minerals) 1 Chew 1 Tab CHEW DAILY Amiodarone (Amiodarone HCl) 200 Mg Tab 200 Mg PO DAILY Omeprazole 40 Mg Cap 40 Mg PO DAILY Aspirin 325 Mg Tab 325 Mg PO DAILY Rosuvastatin (Rosuvastatin Calcium) 10 Mg Tab 10 Mg PO HS Paxil (Paroxetine HCl) 10 Mg Tab 20 Mg PO DAILY Lisinopril 5 Mg Tab 5 Mg PO DAILY Potassium Chloride ER (Potassium Chloride) 10 Meq Cap 10 Meq PO BID Furosemide 20 Mg Tab 20 Mg PO DAILY Metoprolol Tartrate 25 Mg Tab 25 Mg PO BID Propylthiouracil 50 Mg Tab 100 Mg PO Q12HR . Current Medications Medications (Trade) Dose Ordered Sig/Daniel Route Start Time Stop Time Status Last Admin (NS Flush) 2 ml UNSCH PRN IV FLUSH 06/16/17 23:15 (NS Flush) 2 ml BID IV FLUSH 06/17/17 09:00 06/18/17 09:07 (Tylenol) 650 mg Q4H PRN PO 06/16/17 23:15 06/17/17 21:20 (Zofran Inj) 4 mg Q6H PRN IVP 06/16/17 23:15 (Narcan Inj) 0.4 mg UNSCH PRN IV PUSH 06/16/17 23:15 (Milk Of Magnesia Liq) 30 ml Q12H PRN PO 06/16/17 23:15 (Senokot) 17.2 mg Q12H PRN PO 06/16/17 23:15 (Dulcolax Supp) 10 mg DAILY PRN RECTAL 06/16/17 23:15 (Lactulose Liq) 30 ml DAILY PRN PO 06/16/17 23:15 (Lasix Inj) 20 mg BID@0900,1800 IV PUSH 06/17/17 09:00 06/18/17 09:09 (Cordarone) 200 mg DAILY PO 06/17/17 09:00 06/18/17 15:08 (Aspirin) 325 mg DAILY PO 06/17/17 09:00 (Prinivil) 5 mg DAILY PO 06/17/17 09:00 06/18/17 15:08 (Lopressor) 25 mg BID PO 06/17/17 09:00 06/18/17 09:05 (KCl) 10 meq BID PO 06/17/17 09:00 06/18/17 09:05 (Ptu) 100 mg Q12HR PO 06/17/17 09:00 06/18/17 09:06 (Protonix) 40 mg DAILY PO 06/17/17 09:00 06/18/17 09:06 Patient Own Medication PT OWN MED: (Paroxet... DAILY PO 06/17/17 09:00 Future hold 06/18/17 09:06 (Lipitor) 20 mg HS PO 06/17/17 21:00 06/17/17 21:08 (Duoneb Neb) 1 ampule Q4HR NEB PRN NEB 06/17/17 00:15 (Mycostatin Powder) 1 applic Q12H TOPICAL 06/17/17 06:00 06/18/17 05:42 (Duoneb Neb) 1 ampule Q4HR WHILE AWAKE NEB NEB 06/17/17 16:00 06/18/17 11:33 (Lactinex) 1 tab Q12HR PO 06/18/17 21:00 . Family History Mother is alive at 90. Father of [place], had history of hypertension. 5 brothers with history positive for hypertension. Has 2 sons and 1 daughter - indicates 1 of her children has a heart murmur the other have history of hypertension. One brother from a bicycle accident. . Substance Use Tobacco: Quit smoking approximately 1 year ago, smoked 2.5 packs per day for at least 30 years. Alcohol: Does not drink alcohol. Prescription med abuse: None. Illicits: None. Psychosocial History Born and raised in [facility]. Patient and her children were born at [facility]. Has been twice. Has been with her second for 26 years, for 7 of those years. They are currently . She has 2 sons and 1 daughter from her first marriage. Children live in [place]. 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 Worked for many years at [employer] in [place]. . Spiritual/Cultural Factors Restorationism kamar, Orthodox. Not an important part of her life. Declines girls swimming coach support. . Health Care Surrogate: Copy in medical record Date completed: 06/18/17. Health Care Surrogate(s): Patient completed designation of healthcare surrogate naming her son Chance "Clarke" Sole as primary healthcare surrogate and her daughter Pedrito Whipple has alternate healthcare surrogate. . Today's verbally stated goals: Patient desires continued aggressive care including FULL CODE. She is somewhat overwhelmed by the conversation regarding transition to comfort/hospice support/ CODE STATUS would recommend reinforcement by the remainder of the medical team. Will attempt to contact patient's son if she allows in the coming days. . Family/friends goals: Patient requests that I not call her son, she would like to speak with him first. . Ethical and Legal Issues Patient appears capacitated to make her own healthcare decisions at this time. Should she lose capacity, patient completed designation of healthcare surrogate naming her son Chance "Clarke" Sole as primary healthcare surrogate and her daughter Pedrito Whipple has alternate healthcare surrogate. . Physical Exam Vital Signs Date Time Temp Pulse Resp B/P (MAP) Pulse Ox O2 Delivery O2 Flow Rate FiO2 06/18/17 15:36 97.6 72 18 117/64 (81) 95 06/18/17 12:12 97.5 70 20 110/65 (80) 98 06/18/17 09:03 97.6 68 18 127/69 (88) 97 06/18/17 09:03 Nasal Cannula 2.00 06/18/17 08:19 104/68 (80) 06/18/17 07:26 96 Nasal Cannula 2.00 06/18/17 07:21 97.4 66 20 96 06/18/17 07:10 64 06/18/17 04:45 65 06/18/17 03:38 95 Nasal Cannula 2.00 06/18/17 03:25 84 18 140/90 (107) 98 06/18/17 00:11 97.8 63 18 98/64 (75) 98 06/18/17 00:05 61 06/17/17 21:05 Nasal Cannula 4.00 06/17/17 20:17 72 18 109/72 (84) 98 06/17/17 20:00 98 Nasal Cannula 2.00 Exam CONSTITUTIONAL/GENERAL: This is an thin patient, short of breath at rest. TUBES/LINES/DRAINS: Oxygen via nasal cannula, PIV, right port, left AICD. SKIN: Color dusky. Thin hair due to recent chemo related alopecia. No jaundice, rashes, or lesions. Ecchymoses on upper extremities. Skin temperature appropriate. Not diaphoretic. HEAD: Atraumatic. Normocephalic. EYES: Pupils equal and round and reactive. ENT: Hearing grossly normal. Nose without bleeding or purulent drainage. Poor dentition. NECK: Trachea midline. CARDIOVASCULAR: Regular rate and rhythm without murmurs. No JVD. RESPIRATORY/CHEST: Labored respirations at rest, worsens with conversation. Minimal air exchange on left, right diminished base. GASTROINTESTINAL: Abdomen soft, non-tender, nondistended. No guarding. Bowel sounds present. GENITOURINARY: Without palpable bladder distension. MUSCULOSKELETAL: Extremities with edema. LYMPHATICS: No palpable cervical or supraclavicular adenopathy. NEUROLOGICAL: Awake and alert. Intermittent confusion. Follows commands. Limited insight. Moves all extremities. PSYCHIATRIC: + anxiety due to SOB. . Diagnostic Tests Laboratory Laboratory Tests Test 06/16/17 21:43 06/16/17 22:17 06/16/17 22:57 06/17/17 03:23 White Blood Count 5.4 TH/MM3 (4.0-11.0) Red Blood Count 4.04 MIL/MM3 (4.00-5.30) Hemoglobin 14.1 GM/DL (11.6-15.3) Hematocrit 43.1 % (35.0-46.0) Mean Corpuscular Volume 106.8 FL (80.0-100.0) Mean Corpuscular Hemoglobin 34.9 PG (27.0-34.0) Mean Corpuscular Hemoglobin Concent 32.7 % (32.0-36.0) Red Cell Distribution Width 17.6 % (11.6-17.2) Platelet Count 50 TH/MM3 (150-450) Mean Platelet Volume 10.8 FL (7.0-11.0) Neutrophils (%) (Auto) 81.2 % (16.0-70.0) Lymphocytes (%) (Auto) 11.6 % (9.0-44.0) Monocytes (%) (Auto) 6.7 % (0.0-8.0) Eosinophils (%) (Auto) 0.2 % (0.0-4.0) Basophils (%) (Auto) 0.3 % (0.0-2.0) Neutrophils # (Auto) 4.4 TH/MM3 (1.8-7.7) Lymphocytes # (Auto) 0.6 TH/MM3 (1.0-4.8) Monocytes # (Auto) 0.4 TH/MM3 (0-0.9) Eosinophils # (Auto) 0.0 TH/MM3 (0-0.4) Basophils # (Auto) 0.0 TH/MM3 (0-0.2) CBC Comment AUTO DIFF Differential Total Cells Counted 100 Neutrophils % (Manual) 86 % (16-70) Band Neutrophils % 1 % (0-6) Lymphocytes % 8 % (9-44) Monocytes % 4 % (0-8) Neutrophils # (Manual) 4.8 TH/MM3 (1.8-7.7) Myelocytes 1 % (0-0) Nucleated Red Blood Cells 1 /100 WBC (0-0) Differential Comment FINAL DIFF MANUAL Platelet Estimate LOW (NORMAL) Platelet Morphology Comment NORMAL (NORMAL) Ovalocytes 1+ (NORMAL) Acanthocytes OCC (NORMAL) Prothrombin Time 13.6 SEC (9.8-11.6) Prothromb Time International Ratio 1.3 RATIO Activated Partial Thromboplast Time 29.9 SEC (24.3-30.1) Blood Urea Nitrogen 12 MG/DL (7-18) Creatinine 0.79 MG/DL (0.50-1.00) Random Glucose 152 MG/DL (74-106) Total Protein 6.4 GM/DL (6.4-8.2) Albumin 2.5 GM/DL (3.4-5.0) Calcium Level 8.7 MG/DL (8.5-10.1) Alkaline Phosphatase 242 U/L (45-117) Aspartate Amino Transf (AST/SGOT) 37 U/L (15-37) Alanine Aminotransferase (ALT/SGPT) 36 U/L (10-53) Total Bilirubin 1.6 MG/DL (0.2-1.0) Sodium Level 140 MEQ/L (136-145) Potassium Level 3.6 MEQ/L (3.5-5.1) Chloride Level 102 MEQ/L (98-107) Carbon Dioxide Level 27.8 MEQ/L (21.0-32.0) Anion Gap 10 MEQ/L (5-15) Estimat Glomerular Filtration Rate 72 ML/MIN (>89) Total Creatine Kinase 50 U/L (26-192) 40 U/L (26-192) Troponin I 0.29 NG/ML (0.02-0.05) 0.28 NG/ML (0.02-0.05) B-Type Natriuretic Peptide 871 PG/ML (0-100) Urine Color YELLOW (YELLW/STRAW) Urine Turbidity HAZY (CLEAR) Urine pH 6.0 (5.0-8.5) Urine Specific Mitchell 1.024 (1.002-1.035) Urine Protein 100 mg/dL (NEG-TRACE) Urine Glucose (UA) NEG mg/dL (NEG) Urine Ketones NEG mg/dL (NEG) Urine Occult Blood NEG (NEG) Urine Nitrite NEG (NEG) Urine Bilirubin NEG (NEG) Urine Urobilinogen 8.0 MG/DL (LESS THAN Urine Leukocyte Esterase NEG (NEG) Urine WBC 3 /hpf (0-5) Urine Squamous Epithelial Cells <1 /hpf (0-5) Urine Calcium Oxalate Crystals MANY /hpf (NONE) Urine Hyaline Casts 13 /lpf (RARE) Urine Granular Casts 2 /lpf (NONE) Urine Mucus MOD /lpf (OCC) Microscopic Urinalysis Comment CULT NOT INDICATED Blood Gas Puncture Site LT RADIAL Blood Gas Patient Temperature 98.6 Blood Gas HCO3 28 mmol/L (22-26) Blood Gas Base Excess 4.2 mmol/L (-2-2) Blood Gas Oxygen Saturation 97 % (90-100) Arterial Blood pH 7.44 (7.380-7.420) Arterial Blood Partial Pressure CO2 43 mmHg (38-42) Arterial Blood Partial Pressure O2 138 mmHG (61-120) Arterial Blood Oxygen Content 19.3 Vol % (12.0-20.0) Arterial Blood Carboxyhemoglobin 1.4 % (0-4) Arterial Blood Methemoglobin 0.5 % (0-2) Blood Gas Hemoglobin 14.0 G/DL (12.0-16.0) Oxygen Delivery Device NASAL CANNULA Blood Gas Liter Flow 4 L/M Test 06/17/17 03:32 06/17/17 10:15 06/18/17 06:17 White Blood Count 5.1 TH/MM3 (4.0-11.0) Red Blood Count 3.99 MIL/MM3 (4.00-5.30) Hemoglobin 13.7 GM/DL (11.6-15.3) Hematocrit 42.0 % (35.0-46.0) Mean Corpuscular Volume 105.2 FL (80.0-100.0) Mean Corpuscular Hemoglobin 34.4 PG (27.0-34.0) Mean Corpuscular Hemoglobin Concent 32.7 % (32.0-36.0) Red Cell Distribution Width 18.2 % (11.6-17.2) Platelet Count 43 TH/MM3 (150-450) Mean Platelet Volume 11.0 FL (7.0-11.0) Neutrophils (%) (Auto) 79.3 % (16.0-70.0) Lymphocytes (%) (Auto) 13.1 % (9.0-44.0) Monocytes (%) (Auto) 7.1 % (0.0-8.0) Eosinophils (%) (Auto) 0.1 % (0.0-4.0) Basophils (%) (Auto) 0.4 % (0.0-2.0) Neutrophils # (Auto) 4.1 TH/MM3 (1.8-7.7) Lymphocytes # (Auto) 0.7 TH/MM3 (1.0-4.8) Monocytes # (Auto) 0.4 TH/MM3 (0-0.9) Eosinophils # (Auto) 0.0 TH/MM3 (0-0.4) Basophils # (Auto) 0.0 TH/MM3 (0-0.2) CBC Comment DIFF FINAL Differential Comment Blood Urea Nitrogen 12 MG/DL (7-18) 14 MG/DL (7-18) Creatinine 0.63 MG/DL (0.50-1.00) 0.83 MG/DL (0.50-1.00) Random Glucose 96 MG/DL (74-106) 148 MG/DL (74-106) Calcium Level 8.6 MG/DL (8.5-10.1) 8.9 MG/DL (8.5-10.1) Sodium Level 141 MEQ/L (136-145) 141 MEQ/L (136-145) Potassium Level 3.1 MEQ/L (3.5-5.1) 4.3 MEQ/L (3.5-5.1) Chloride Level 100 MEQ/L (98-107) 105 MEQ/L (98-107) Carbon Dioxide Level 34.3 MEQ/L (21.0-32.0) 30.1 MEQ/L (21.0-32.0) Anion Gap 7 MEQ/L (5-15) 6 MEQ/L (5-15) Estimat Glomerular Filtration Rate 94 ML/MIN (>89) 68 ML/MIN (>89) Magnesium Level 1.5 MG/DL (1.5-2.5) Total Creatine Kinase 45 U/L (26-192) Troponin I 0.28 NG/ML (0.02-0.05) Thyroid Stimulating Hormone 3rd Gen 26.700 uIU/ML (0.358-3.740) Result Diagram: 06/17/17 0332 06/18/17 0617 Imaging Last Impressions Lower Extremity Ultrasound 06/18/17 Signed Impressions: Service Date/Time: Sunday, June 18, 2017 11:42 - CONCLUSION: Normal examination. There is a small thrombosed varicosity in the left popliteal fossa Poncho Omer MD Chest Ultrasound 06/17/17 Signed Impressions: Service Date/Time: Saturday, June 17, 2017 15:47 - CONCLUSION: Left pleural effusion marked for thoracentesis. Feliciano Rm MD Chest CT 06/17/17 Signed Impressions: Service Date/Time: Sunday, June 18, 2017 10:49 - CONCLUSION: The patient has a stable left suprahilar mass causing narrowing of both the left upper lobe bronchus and the pulmonary artery to the left upper lobe. The mass is stable in size since the April exam measuring 5.3 x 6.2 cm. No evidence of pulmonary embolism. Poncho Omer MD Barium Swallow X-Ray 06/17/17 Signed Impressions: Service Date/Time: Saturday, June 17, 2017 14:56 - CONCLUSION: Mildly delayed passage of barium through the esophagus. No fixed focal narrowing identified. No gross evidence of aspiration. Feliciano Rm MD Chest X-Ray 06/16/[id number] Signed Impressions: Service Date/Time: Friday, June 16, 2017 21:33 - CONCLUSION: Left hilar mass with worsening ipsilateral consolidation and effusion. Braden Ferrer MD Patient/Family Conference Present at Family Conference: Met with patient at bedside. Family Conference Time (mins): 75 (25 minutes in conversation regarding advanced care planning. ) Family Conference Location: Bedside Issues Discussed: * Palliative care role, purpose, approach * Additional medical, psychosocial, and spiritual history * Patients general health, functional status, and cognitive changes in the months leading up to the current hospitalization * Patient/family understanding of the current medical problems * Patient/family understanding of prognosis * Patients goals of care as best understood from advance directives and/or conversations and/or values * Current medical treatment options and benefits/burdens of those options * Likely scenarios comparing ongoing aggressive care with a transition to comfort measures only * Questions answered to the best of my ability * Palliative care contact information provided Assessment and Plan Disease Oriented Problem List: (1) Pleural effusion, left (2) Thrombocytopenia (3) Non-small cell lung cancer (4) Coronary artery disease (5) COPD (chronic obstructive pulmonary disease) (6) CHF (congestive heart failure) (7) Hyperthyroidism (8) Possible myelodysplastic syndrome (9) Elevated troponin (10) Lung cancer Symptom Scale: (1) Anxiety 0-10 Scale: Unable to quantify (2) Shortness of breath 0-10 Scale: Unable to quantify Pertinent Non-Medical Issues Psychosocial: , . Has 3 adult children-2 sons and 1 daughter live in [place]. Spiritual: Restorationism kamar. Declines girls swimming coach support at this time. Legal: Patient appears capacitated to make her own healthcare decisions at this time. Should she lose capacity, patient completed designation of healthcare surrogate naming her son Chance Whipple (Dude) as primary healthcare surrogate and her daughter Pedrito Whipple has alternate healthcare surrogate. Ethical issues impacting care: No known concerns at this time. . Important Contacts * Chance Whipple (Dude), son/primary HCS: [phone] * Pedrito Whipple, daughter/alternate HCS: she does not know phone number. * Alli Whipple, (currently ): [phone] . Prognosis Mrs. Thompson is a 71-year-old female with COPD, CHF, progressive stage III non- small cell lung cancer, large left pleural effusion multiple other comorbidities , declining functional, nutritional and health status over the past few months. Overall prognosis is poor. Hospice appropriate if goals are comfort oriented. . Code Status: Full Code Plan * Patient appears capacitated to make her own healthcare decisions at this time. Should she lose capacity, patient completed designation of healthcare surrogate naming her son Chance Whipple (Dude) as primary healthcare surrogate and her daughter Pedrito Whipple has alternate healthcare surrogate. * FULL CODE * Palliative Patient desires continued aggressive care including FULL CODE. She is somewhat overwhelmed by the conversation regarding transition to comfort/ hospice support/CODE STATUS would recommend reinforcement by the remainder of the medical team. Will attempt to contact patient's son if she allows in the coming days. * SYMPTOMS: Dyspnea secondary to CHF, COPD, lung cancer, pleural effusion, myelodysplasia. On oxygen via nasal cannula. May benefit from thoracentesis given large left pleural effusion. Anxiety: Secondary to shortness of breath. On Paxil. Patient is reluctant to try medication for anxiety, she reports that she has had adverse reaction to benzodiazepines (Xanax and Ativan) in the past. Offered low-dose medication, she will consider and let me know if she would like assistance with symptom management. Patient denies pain. No new medication recommendations at this time. * Palliative care number provided. * Palliative care will continue to follow to assist with medication, clarification of medical treatment goals and symptom management as needed. . Thank you for the opportunity to participate in the care of Ms. Thompson. Attestation To help prompt me to consider important information that might be impacting today's encounter and assessment, information from prior notes written by myself or my colleagues may have been "brought forward" into today's note. My signature on this note, however, is an attestation that I personally performed the exam, history, and/or decision-making noted today, and, unless otherwise indicated, the interactions with patient, family, and staff as well as the review of records all occurred today. I also attest that the listed assessment and stated plan reflect my best clinical judgment today based on the combination of historical information, prior notes, and today's exam/ interactions. When time spent is documented, it refers only to time spent today by the signer, or if indicated, combined time spent today by collaborating physician/nurse practitioner. . Marlin Mina Jun 18, 2017 17:18
[2017-06-18] MEDS: LACTOBACILLUS ACIDOPHILUS TAB PO SCH (20:51)
[2017-06-18] MEDS: ATORVASTATIN 20 MG TAB PO SCH (20:52)
[2017-06-19] VITALS (14 sets, daily range): BP systolic 93–117; BP diastolic 56–77; PULSE 67–77; RESP 16–25; TEMP 96.4–98.5; O2SAT 91–98
[2017-06-19] MEDS: NYSTATIN 100,000 U/GM PWD 15 GM BTL TOPICAL SCH ×2 (06:16→18:00)
[2017-06-19 07:42] LABS: HEMATOCRIT 40.9 % (35.0-46.0); HEMOGLOBIN 13.4 GM/DL (11.6-15.3); MEAN CELL VOLUME 105.8 FL (80.0-100.0); MEAN CORPUSCULAR HEMOGLOBIN 34.7 PG (27.0-34.0); MEAN CORPUSCULAR HGB CONC 32.8 % (32.0-36.0); MEAN PLATELET VOLUME 10.9 FL (7.0-11.0); PLATELET COUNT 44 TH/MM3 (150-450); RED BLOOD COUNT 3.87 MIL/MM3 (4.00-5.30); RED CELL DISTRIBUTION WIDTH 17.7 % (11.6-17.2)
[2017-06-19] MEDS: RESP: ALBUTEROL 2.5 MG/IPRATROPIUM 0.5 MG NEB (SCH) NEB ×4 (07:45→21:18)
[2017-06-19] MEDS: POTASSIUM CHLORIDE 10 MEQ CAP PO SCH ×2 (08:33→20:15)
[2017-06-19] MEDS: ASPIRIN 325 MG TAB PO SCH (08:33)
[2017-06-19] MEDS: LISINOPRIL 5 MG TAB PO SCH (08:33)
[2017-06-19] MEDS: METOPROLOL TARTRATE 25 MG TAB PO SCH ×3 (08:33→20:13)
[2017-06-19] MEDS: PANTOPRAZOLE SOD 40 MG DELAYED RELEASE TAB PO SCH (08:33)
[2017-06-19] MEDS: PAROXETINE 20 MG PO SCH (08:34)
[2017-06-19] MEDS: SODIUM CHLORIDE 0.9% FLUSH 10 ML FLUSH IV FLUSH SCH ×2 (08:35→20:19)
[2017-06-19] MEDS: LACTOBACILLUS ACIDOPHILUS TAB PO SCH ×2 (08:35→20:15)
[2017-06-19] MEDS: PROPYLTHIOURACIL 50 MG TAB PO SCH ×2 (08:42→20:13)
[2017-06-19] MEDS: FUROSEMIDE 20 MG/2 ML VIAL IV PUSH SCH (08:43)
--- NOTE | 2017-06-19 10:33 | MB ---
cc: Serena Moran MD, Hanscy MD Peterson,Dain Justice,Alli Vivas DO DATE: 06/18/2017 REASON FOR CONSULTATION: Elevated troponin, heart failure. HISTORY OF PRESENT ILLNESS: Mrs. Thompson is a 71-year-old female with non-small cell carcinoma, stage III who was previously on chemotherapy. She is cachectic. Apparently, she is not a candidate at this point for chemotherapy. She was admitted to the emergency room due to shortness of breath. Troponin was 0.28. I was consulted for evaluation and management. The chart was reviewed. The patient was evaluated. ALLERGIES: PENICILLIN, PAROXETINE AND CODEINE SOCIAL HISTORY: The patient stopped smoking, but the at home is still smoking. FAMILY HISTORY: Noncontributory to her current medical condition. MEDICATIONS: She is currently on: 1. Acetaminophen. 2. Amiodarone 200 mg a day. 3. Aspirin 325 mg a day. 4. Lipitor 10 mg a day. 5. Lisinopril 5 mg a day. 6. Metoprolol 25 mg twice a day. 7. PTU 100 mg q. 12 hours. REVIEW OF SYSTEMS: She refers feeling tired. She can barely talk. She refers some shortness of breath, but no chest pain. No palpitation. PHYSICAL EXAMINATION: GENERAL: Alert, fully oriented, in bed with shortness of breath, cachectic. LUNGS: Ventilated. CARDIOVASCULAR: S1, S2. Regular. No gallop. Right infraclavicular area with central ____ port. ABDOMEN: Soft. No masses. EXTREMITIES: No edema. CARDIOLOGY STUDIES: Electrocardiogram on hospitalization indicates sinus rhythm, AV sequential pacing. No acute ST and T-wave changes. LABORATORY DATA: INR 1.3. potassium 4.3, creatinine 0.8 with troponin 0.28. TSH 26. Hemoglobin 13.7, white blood cell 5.1. ASSESSMENT AND RECOMMENDATIONS: Mrs. Thompson's condition continues to deteriorate. She has advanced a non-small cell carcinoma. Currently she is not a candidate for chemotherapy or radiation therapy. She is cachectic. She was seen by oncology who referred her to hospice. Apparently, there is a life expectancy of less than 6 months. Troponin is slightly elevated. At this point, my recommendation is medical management. Her TSH is high. PTU should be discontinued for now. We will also discontinue the amiodarone. We will continue on current management. The patient can be discharged home whenever it is okay with managing team. I will be available only on a p.r.n. basis. MD TESSA Parish/SA/ , 07:25 PM , 07:46 PM
--- NOTE | 2017-06-19 11:27 | PD.ONC.PN ---
Subjective Subjective Remarks Afebrile overnight. Patient resting in bed in nad. Having some dyspnea, waiting to go down for thoracentesis. Otherwise without complaints. Objective Data Date Time Temp Pulse Resp B/P (MAP) Pulse Ox O2 Delivery O2 Flow Rate FiO2 06/19/17 10:50 97.5 75 25 114/77 (89) 96 06/19/17 08:30 97.7 74 25 117/75 (89) 95 06/19/17 07:53 Nasal Cannula 2.00 06/19/17 07:50 95 Nasal Cannula 2.00 06/19/17 04:17 98.0 77 20 106/69 (81) 98 06/19/17 01:11 97.7 72 18 99/70 (80) 93 06/18/17 20:52 Nasal Cannula 2.00 06/18/17 20:39 98.4 79 18 94/66 (75) 97 Automatic Cuff 06/18/17 20:22 98 21 06/18/17 20:00 77 06/18/17 16:00 69 06/18/17 15:36 97.6 72 18 117/64 (81) 95 06/18/17 12:30 68 06/18/17 12:12 97.5 70 20 110/65 (80) 98 06/19/17 06/19/17 06/19/17 07:00 15:00 23:00 Intake Total 240 ml Output Total 1020 ml Balance -780 ml Result Diagram: 06/19/17 0725 06/18/17 0617 Laboratory Results Laboratory Tests Test 06/18/17 19:38 06/19/17 07:25 Total Triiodothyronine 60 NG/DL White Blood Count 6.0 TH/MM3 Red Blood Count 3.87 MIL/MM3 Hemoglobin 13.4 GM/DL Hematocrit 40.9 % Mean Corpuscular Volume 105.8 FL Mean Corpuscular Hemoglobin 34.7 PG Mean Corpuscular Hemoglobin Concent 32.8 % Red Cell Distribution Width 17.7 % Platelet Count 44 TH/MM3 Mean Platelet Volume 10.9 FL Administered Medications Medications (Trade) Dose Ordered Sig/Daniel Route PRN Reason Start Time Stop Time Status Last Admin Dose Admin Sodium Chloride (NS Flush) 2 ml BID IV FLUSH 06/17/17 09:00 06/19/17 08:35 Acetaminophen (Tylenol) 650 mg Q4H PRN PO TEMP > 100.4 06/16/17 23:15 06/17/17 21:20 Furosemide (Lasix Inj) 20 mg BID@0900,1800 IV PUSH 06/17/17 09:00 06/19/17 08:43 Aspirin (Aspirin) 325 mg DAILY PO 06/17/17 09:00 06/19/17 08:33 Lisinopril (Prinivil) 5 mg DAILY PO 06/17/17 09:00 06/19/17 08:33 Metoprolol Tartrate (Lopressor) 25 mg BID PO 06/17/17 09:00 06/19/17 08:33 Potassium Chloride (KCl) 10 meq BID PO 06/17/17 09:00 06/19/17 08:33 Propylthiouracil (Ptu) 100 mg Q12HR PO 06/17/17 09:00 06/19/17 08:42 Pantoprazole Sodium (Protonix) 40 mg DAILY PO 06/17/17 09:00 06/19/17 08:33 Patient Own Medication PT OWN MED: (Paroxet... DAILY PO 06/17/17 09:00 Future hold 06/19/17 08:34 Atorvastatin Calcium (Lipitor) 20 mg HS PO 06/17/17 21:00 06/18/17 20:52 Nystatin (Mycostatin Powder) 1 applic Q12H TOPICAL 06/17/17 06:00 06/19/17 06:16 Albuterol/ Ipratropium (Duoneb Neb) 1 ampule Q4HR WHILE AWAKE NEB NEB 06/17/17 16:00 06/19/17 07:45 Lactobacillus Acidophilus (Lactinex) 1 tab Q12HR PO 06/18/17 21:00 06/19/17 08:35 Objective Remarks GENERAL: Middle aged female, chronically ill appearing, lying supine in bed. On O2 via NC SKIN: Warm and dry. HEAD: Normocephalic. EYES: No injection or drainage. NECK: Supple, trachea midline. CARDIOVASCULAR: +S1/S2 RESPIRATORY: breath sounds diminished at bases and left lung lung oneal. scattered rhonchi. GASTROINTESTINAL: Abdomen soft, non-tender, nondistended. EXTREMITIES: No cyanosis NEUROLOGICAL: awake and alert. normal speech. moving extremities. Assessment/Plan Problem List: (1) Lung cancer ICD Codes: C34.90 - Malignant neoplasm of unspecified part of unspecified bronchus or lung Plan: 06/19: hospice consulted. patient clear for discharge from oncology perspective after thoracentesis today. 06/18: Palliative care consulted. Patient is a hospice candidate but is not interested at this time. Supportive care. --CT chest on 06/18 shows stable mass in the left suprahilar measuring 5.3 x 6.2 cm. --Patient not currently a candidate for future chemotherapy due to worsening performance status Hx/Workup: Patient has history of she stage III non-small cell lung cancer. Declined radiation but received chemotherapy for several cycles. The patient unfortunately has a significant history of CHF with ejection fraction about 35% . The patient reportedly has been lost to follow-up. She was admitted for CHF exacerbation Assessment 71-year-old female with history of non-small cell lung cancer admitted with CHF exacerbation Attending Statement The exam, history, and the medical decision-making described in the above note were completed with the assistance of the mid-level provider. I reviewed and agree with the findings presented. I attest that I had a [id number] encounter with the patient on the same day, and personally performed and documented my assessment and findings in the medical record. SOB, Getting bedside US. s/p thoracentesis . 450 ML fluid removed and send for tests. Ok to d/c to home with hospice. Marianela Segura Jun 19, 2017 11:27 Lindsay Wong MD Jun 19, 2017 17:05
--- NOTE | 2017-06-19 13:00 | RADRPT ---
EXAM DATE/TIME: 06/19/2017 12:37 [facility] COMPARISON: CHEST SINGLE AP, June 16, 2017, 21:33. INDICATIONS : Post left thoracentesis. Left effusion. MEDICAL HISTORY : Myocardial infarction. Congestive heart failure. Carcinoma, lung. Thyroid disease.Coronary artery dis ease. COPD. GERD. HTN. Left leg DVT. Anxiety. SURGICAL HISTORY : None. Tonsillectomy. CABG. Hysterectomy. Chemotherapy. Varicose vein surgery. ENCOUNTER: Subsequent ACUITY: 1 day PAIN SCORE: 3/10 LOCATION: Bilateral chest FINDINGS: A single AP erect portable view of the chest was obtained and again demonstrates that the patient is status post median sternotomy. The left subclavian transvenous pacer remains in place. A right-sided implantable port catheter is unchanged. Moderate cardiomegaly is again noted with blunting of the lef t lateral costophrenic angle and abnormal opacity at the left lung base. This is unchanged. There is no pneumothorax. The right lung is clear. CONCLUSION: 1. No pneumothorax status post thoracotomy. 2. Stable appearance with blunting of the left costophrenic angle and abnormal opacity at the left cherry ng base. 3. Status post median sternotomy and cardiomegaly again noted. Alli Grey MD on June 19, 2017 at 12:57 Board Certified Radiologist. This report was verified electronically.
[2017-06-19] MEDS ORDERED: LIDOCAINE HCL 1% 20 ML VIAL ONE (13:08)
[2017-06-19 13:40] LABS: TOTAL PROTEIN,PLEURAL FLUID 1.5 GM/DL
--- NOTE | 2017-06-19 13:49 | RADRPT ---
EXAM DATE/TIME: 06/19/2017 07:58 [facility] COMPARISON: No previous studies available for comparison. INDICATIONS : Pleural effusion. MEDICAL HISTORY : Hypertension. Gastroesophageal reflux disease. Congestive heart failure. COPD. Lung cancer. Left leg dvt. Anxiety. Depression. SURGICAL HISTORY : Tonsillectomy. CABG Hysterectomy. ENCOUNTER: Initial ACUITY: 4 - 6 days PAIN SCORE: 5/10 LOCATION: Left chest FLUID: Total volume of 450 cc of clear, yellow fluid was removed. Fluid was sent to lab for ordered studies. TECHNIQUE: 1. Ultrasound guidance for thoracentesis. 2. Thoracentesis. The risks, benefits, and alternatives to ultrasound guided thoracentesis were explained to the patien t in lay simple terms, including the risk of bleeding and infection. Written and verbal informed con sent was obtained. Appropriate area for thoracentesis was marked under ultrasound guidance with the patient in the uprig ht position. Overlying skin was prepped and draped in the usual sterile fashion and with local anest hetic, a dermatotomy was made with an 11 blade scalpel. A 6 [place] thoracentesis catheter was placed in the pleural space and fluid was removed. Catheter was then removed and a sterile dressing applie d. There were no immediate complications. The patient tolerated the procedure well and the left the ultrasound suite in stable condition. Chest radiograph is to be obtained. CONCLUSION: Uncomplicated ultrasound guided thoracentesis. Shaun Zuniga MD on June 19, 2017 at 13:46 Board Certified Radiologist. This report was verified electronically.
[2017-06-19 14:01] LABS: PLEURAL FLUID RBC 2163 /MM3 (0-0); PLEURAL FLUID WBC 569 /MM3 (0-10)
[2017-06-19 14:03] LABS: PLEURAL FLUID LYMPHS 35 %; PLEURAL FLUID MESOTHELIAL 1 %; PLEURAL FLUID MONOS 9 %
[2017-06-19 14:05] LABS: PLEURAL FLUID PLASMA CELLS 1 %; PLEURAL FLUID POLYS (SEGS) 54 %
--- NOTE | 2017-06-19 18:16 | HHI.PR ---
Subjective Remarks Patient c/o back pain, denies cp. patient with low bp in the systolic high 90's. Afebrile sp thoracentesis - breathing is better Objective Vitals Vital Signs Date Time Temp Pulse Resp B/P (MAP) Pulse Ox O2 Delivery O2 Flow Rate FiO2 06/19/17 16:43 96.4 69 24 102/66 (78) 96 06/19/17 14:14 69 24 97/56 (70) 98 06/19/17 13:57 96.9 68 24 93/58 (70) 98 06/19/17 13:22 68 18 99/69 (79) 97 06/19/17 13:05 67 18 97/56 (70) 91 06/19/17 11:20 98.5 74 16 110/74 (86) 96 06/19/17 10:50 97.5 75 25 114/77 (89) 96 06/19/17 08:30 97.7 74 25 117/75 (89) 95 06/19/17 07:53 Nasal Cannula 2.00 06/19/17 07:50 95 Nasal Cannula 2.00 06/19/17 04:17 98.0 77 20 106/69 (81) 98 06/19/17 01:11 97.7 72 18 99/70 (80) 93 06/18/17 20:52 Nasal Cannula 2.00 06/18/17 20:39 98.4 79 18 94/66 (75) 97 Automatic Cuff 06/18/17 20:22 98 21 06/18/17 20:00 77 I/O 06/18/17 06/18/17 06/18/17 06/19/17 06/19/17 06/19/17 07:00 15:00 23:00 07:00 15:00 23:00 Intake Total 240 ml Output Total 1020 ml Balance -780 ml Intake Oral 240 ml Output Urine Total 1020 ml # Voids 2 1 Result Diagram: 06/19/1772406/18/1717 Imaging Last Impressions Thoracentesis Ultrasound 06/19/17 0600 Signed Impressions: Service Date/Time: May 07:58 - CONCLUSION: Uncomplicated ultrasound guided thoracentesis. Shaun Zuniga MD Chest X-Ray 06/19/17 0000 Signed Impressions: Service Date/Time: May 12:37 - CONCLUSION: 1. No pneumothorax status post thoracotomy. 2. Stable appearance with blunting of the left costophrenic angle and abnormal opacity at the left lung base. 3. Status post median sternotomy and cardiomegaly again noted. Alli Grey MD Lower Extremity Ultrasound 06/18/17 0000 Signed Impressions: Service Date/Time: Sunday, June 18, 2017 11:42 - CONCLUSION: Normal examination. There is a small thrombosed varicosity in the left popliteal fossa Poncho Omer MD Chest Ultrasound 06/17/17 0000 Signed Impressions: Service Date/Time: Saturday, June 17, 2017 15:47 - CONCLUSION: Left pleural effusion marked for thoracentesis. Feliciano Rm MD Chest CT 06/17/17 0000 Signed Impressions: Service Date/Time: Sunday, June 18, 2017 10:49 - CONCLUSION: The patient has a stable left suprahilar mass causing narrowing of both the left upper lobe bronchus and the pulmonary artery to the left upper lobe. The mass is stable in size since the April exam measuring 5.3 x 6.2 cm. No evidence of pulmonary embolism. Poncho Omer MD Barium Swallow X-Ray 06/17/17 0000 Signed Impressions: Service Date/Time: Saturday, June 17, 2017 14:56 - CONCLUSION: Mildly delayed passage of barium through the esophagus. No fixed focal narrowing identified. No gross evidence of aspiration. Feliciano Rm MD Objective Remarks GENERAL: Thin, ill appearing female, INAD. Awake and alert. Sitting up in bed. SKIN: Cool and dry. No rash. (+)Port right upper chest with no e/o infection. HEAD: Atraumatic. Normocephalic. No temporal or scalp tenderness. EYES: Pupils equal round and reactive. Extraocular motions intact. No scleral icterus. No injection or drainage. ENT: Nose without bleeding or purulent drainage. Airway patent. MMM. NECK: Trachea midline. CARDIOVASCULAR: Regular rate and rhythm without murmurs, gallops, or rubs. RESPIRATORY: No accessory muscles. Patient has some crackles on left hemithorax , right hemithorax is clear. GASTROINTESTINAL: Abdomen soft, non-tender, nondistended. No hepato-splenomegaly , or palpable masses. No guarding. MUSCULOSKELETAL: 2+ bilateral LE edema extending up into the thighs with trace edema. BLE tender to palpation. Calves supple. NEUROLOGICAL: Awake and alert. Cranial nerves II through XII grossly intact. Motor and sensory grossly within normal limits. Normal speech. PSYCHIATRIC: Appropriate mood and affect. Normal judgment and insight. Medications and IVs Current Medications Medications (Trade) Dose Ordered Sig/Daniel Route Start Time Stop Time Status Last Admin (NS Flush) 2 ml UNSCH PRN IV FLUSH 06/16/17 23:15 (NS Flush) 2 ml BID IV FLUSH 06/17/17 09:00 06/19/17 08:35 (Tylenol) 650 mg Q4H PRN PO 06/16/17 23:15 06/17/17 21:20 (Zofran Inj) 4 mg Q6H PRN IVP 06/16/17 23:15 (Narcan Inj) 0.4 mg UNSCH PRN IV PUSH 06/16/17 23:15 (Milk Of Magnesia Liq) 30 ml Q12H PRN PO 06/16/17 23:15 (Senokot) 17.2 mg Q12H PRN PO 06/16/17 23:15 (Dulcolax Supp) 10 mg DAILY PRN RECTAL 06/16/17 23:15 (Lactulose Liq) 30 ml DAILY PRN PO 06/16/17 23:15 (Lasix Inj) 20 mg BID@0900,1800 IV PUSH 06/17/17 09:00 06/19/17 08:43 (Aspirin) 325 mg DAILY PO 06/17/17 09:00 06/19/17 08:33 (Prinivil) 5 mg DAILY PO 06/17/17 09:00 06/19/17 08:33 (Lopressor) 25 mg BID PO 06/17/17 09:00 06/18/17 09:05 (KCl) 10 meq BID PO 06/17/17 09:00 06/19/17 08:33 (Ptu) 100 mg Q12HR PO 06/17/17 09:00 06/19/17 08:42 (Protonix) 40 mg DAILY PO 06/17/17 09:00 06/19/17 08:33 Patient Own Medication PT OWN MED: (Paroxet... DAILY PO 06/17/17 09:00 Future hold 06/19/17 08:34 (Lipitor) 20 mg HS PO 06/17/17 21:00 06/18/17 20:52 (Duoneb Neb) 1 ampule Q4HR NEB PRN NEB 06/17/17 00:15 (Mycostatin Powder) 1 applic Q12H TOPICAL 06/17/17 06:00 06/19/17 06:16 (Duoneb Neb) 1 ampule Q4HR WHILE AWAKE NEB NEB 06/17/17 16:00 06/19/17 16:35 (Lactinex) 1 tab Q12HR PO 06/18/17 21:00 06/19/17 08:35 A/P Problem List: (1) Hypokalemia ICD Code: E87.6 - Hypokalemia Status: Resolved (2) Dysphagia ICD Code: R13.10 - Dysphagia, unspecified Status: Acute (3) COPD (chronic obstructive pulmonary disease) ICD Code: J44.9 - Chronic obstructive pulmonary disease, unspecified Status: Chronic (4) Lung cancer ICD Code: C34.90 - Malignant neoplasm of unspecified part of unspecified bronchus or lung Status: Chronic (5) Shortness of breath ICD Code: R06.02 - Shortness of breath Status: Resolved (6) Non-small cell lung cancer ICD Code: C34.90 - Malignant neoplasm of unspecified part of unspecified bronchus or lung Status: Chronic (7) Elevated troponin ICD Code: R74.8 - Abnormal levels of other serum enzymes Status: Acute (8) Pleural effusion, left ICD Code: J90 - Pleural effusion, not elsewhere classified Status: Resolved (9) Coronary artery disease ICD Code: I25.10 - Atherosclerotic heart disease of [place] coronary artery without angina pectoris Status: Chronic (10) Hyperthyroidism ICD Code: E05.90 - Thyrotoxicosis, unspecified without thyrotoxic crisis or storm Status: Chronic (11) Thrombocytopenia ICD Code: D69.6 - Thrombocytopenia, unspecified (12) Possible myelodysplastic syndrome Status: Chronic (13) CHF (congestive heart failure) ICD Code: I50.9 - Heart failure, unspecified Status: Chronic (14) Anxiety ICD Code: F41.9 - Anxiety disorder, unspecified Status: Chronic Assessment and Plan 1. Shortness of breath/COPD exacerbation/CHF exacerbation/LE edema Acute on chronic systolic heart failure Per review of previous cardiology note, echocardiogram with EF 35%. Patient status post AICD [address] Mondragon Patient found to be hypoxic by EMS with an oxygen saturation in the 50s. ABG 7.44/43/138/28. BNP elevated at 871 Chest x-ray significant for consolidation and moderate to large effusion seen at the left lung base, worse. There is left volume loss and masslike opacity of the left hilar region. Chest US with 146cc fluid -continue on supplemental oxygen to maintain adequate O2 saturation -Initially treated with IV Lasix. Monitor electrolytes. Strict I&Os. -Ignacio scheduled -Patient may benefit from home oxygen, respiratory walk test prior to discharge 06/19 patient status post left ultrasound-guided paracentesis with drainage of 450 cc of clear, yellow fluid. Fluid analysis does not show an infectious fluid. Discontinue IV Lasix and switch to oral Lasix. 2. Non-small cell lung cancer The patient's oncologist, Dr. Wong consulted, appreciate recommendations Chest CT ordered by Dr. Wong revealing stable left suprahilar mass. Per Dr. Wong, patient not a candidate for additional chemotherapy due to poor performance status Patient declines hospice at this time but is agreeable to palliative care -Consult palliative care. -06/19 Appreciate palliative care consultation. Initially patient willing to go to hospice at the [facility], however patient refusing to be DNR/DNI so patient is not a candidate for hospice at the [facility]. Fu palliative care recommendations. 3. Elevated troponin troponin 0.29 -> 0.28 -> 0.28 Hypotensive EKG showed normal sinus rhythm without ST segment elevation or depression Likely secondary to demand - 06/19 Cardiology consulted - recommended conservative management. 4. Atrial fibrillation -Continue home amiodarone, metoprolol -Continue anticoagulation with aspirin/Plavix 5. CAD/hyperlipidemia/hyperthyroidism/GERD Hypotensive. Hold parameters placed on antihypertensives. BP better today. -Continue home medications 6. Hypokalemia -resolved s/p repletion 7. Dysphagia Dysphonia Speech therapy consulted for swallow evaluation with recs for mechanical soft/ thin liquid diet Barium swallow ordered showing no aspiration, mildly delayed passage of barium 8. Hyperthyroidism on Propylthiouracil TSH 26.7 -06/19 T3 and T4 levels are normal. Elevated TSH is normal and treated hyperthyroidism. Continue PTU at current dose. 9. BLE edema and pain - 06/19 Doppler US negative for DVT. Edema improved. 10. Thrombocytopenia Macrocytosis Possible myelodysplastic syndrome No e/o active bleeding -continue on Plavix/ASA for now -continue to monitor platelets closely. Repeat CBC in am. FEN Heart healthy low salt diet Electrolytes: monitor and replete prn Discharge Planning Obtain walk test. hold diuretics for now since bp borderline low. May DC in am if bp stable. Problem Qualifiers (1) Dysphagia: Qualified Codes: R13.10 - Dysphagia, unspecified (2) Coronary artery disease: Qualified Codes: I25.10 - Atherosclerotic heart disease of [place] coronary artery without angina pectoris Aaron Mtz MD Jun 19, 2017 18:16
[2017-06-19] MEDS: ATORVASTATIN 20 MG TAB PO SCH (20:15)
[2017-06-20] VITALS (9 sets, daily range): BP systolic 89–113; BP diastolic 55–72; PULSE 66–77; RESP 16–18; TEMP 97.7–98.1; O2SAT 92–98
[2017-06-20] MEDS: NYSTATIN 100,000 U/GM PWD 15 GM BTL TOPICAL SCH ×2 (05:04→18:46)
[2017-06-20] MEDS: ACETAMINOPHEN 325 MG TAB PO PRN ×2 (06:47→11:42)
[2017-06-20] MEDS: POTASSIUM CHLORIDE 10 MEQ CAP PO SCH ×2 (08:16→19:49)
[2017-06-20] MEDS: LACTOBACILLUS ACIDOPHILUS TAB PO SCH ×2 (08:17→19:49)
[2017-06-20] MEDS: METOPROLOL TARTRATE 25 MG TAB PO SCH ×2 (08:17→19:50)
[2017-06-20] MEDS: PROPYLTHIOURACIL 50 MG TAB PO SCH ×2 (08:17→19:49)
[2017-06-20] MEDS: LISINOPRIL 5 MG TAB PO SCH (08:17)
[2017-06-20] MEDS: ASPIRIN 325 MG TAB PO SCH (08:17)
[2017-06-20] MEDS: PANTOPRAZOLE SOD 40 MG DELAYED RELEASE TAB PO SCH (08:17)
[2017-06-20] MEDS: SODIUM CHLORIDE 0.9% FLUSH 10 ML FLUSH IV FLUSH SCH ×2 (08:18→20:00)
[2017-06-20] MEDS: RESP: ALBUTEROL 2.5 MG/IPRATROPIUM 0.5 MG NEB (SCH) NEB ×4 (08:26→20:01)
[2017-06-20] MEDS: PAROXETINE 20 MG PO SCH (10:15)
--- NOTE | 2017-06-20 14:11 | HHI.HCPN ---
Reason for visit a. To assist with evaluation and management of symptoms including: Dyspnea, anxiety. b. To assist medical decision maker(s) with: better understanding of current medical conditions; weighing benefits/burdens of medical treatment options; making medical treatment decisions. . Subjective/Interval History Patient seen and examined in room. Discussed with nurse and BUCK Singer. Patient is sitting in chair. She remembers me from my prior visit when she was in the ER. She reports generalized pain due to weakness and decreased muscle mass. She rates pain 8/10. nurse bring her Tylenol per patient request. She does not want to take any stronger meds "until she is ready." She has had 2 doses of Tylenol in the past 24 hours. No new labs. Patient had left thoracentesis with removal of 450cc of fluid on 06/19/17, cytology pending. She reports she is breathing better today. Patient tells me she met with hospice and was hoping to speak with me again because she does not quite understand everything. She indicates that she spoke with Dr. Wong who reported she is no longer a candidate for additional chemotherapy. We reviewed that without being able to receive chemotherapy for the underlying lung cancer that she will continue to decline functionally, nutritionally and overall health will decline and she will from this disease. She indicates that she still wants to " try." We talked about hospice services. I explained differences between hospice and continued aggressive care. We talked about CODE STATUS at length, advised that if she ends up on mechanical ventilation that she will not likely survive and that this will leave her children to make decisions for having to take her off of life support. She indicates that that her children had to take their father off of life support recently and she does not want them to have to do that. However with further discussion she is not ready to consider NO CODE status. At this point in time she still wants to do everything she can to stay alive as long as she can. Her goals are not currently hospice appropriate. She would like to speak with her children before making a decision to transition to comfort measures/hospice support. I have again offered to call and speak with her children even while I am in the room, she continues to decline adamantly. She indicates that her daughter know well will be arriving from out of state on June 26 and she will talk to her at that time. At this time palliative care recommendation would be to consider transition to rehab as she wants to attempt to get stronger, still desires FULL CODE and will not make a decision to transition to hospice services/comfort oriented goals until she is able to speak with her children. . Family/friend interactions See interval note. . Advance Directives Health Care Surrogate: Copy in medical record Advance Directive Specifics Date completed: 06/18/17. Health Care Surrogate(s): Patient completed designation of healthcare surrogate naming her son Chance "Clarke" Sole as primary healthcare surrogate and her daughter Pedrito Whipple has alternate healthcare surrogate. . Significant change in goals: FULL CODE. Goals remain aggressive at this time. . Objective Vital Signs Date Time Temp Pulse Resp B/P (MAP) Pulse Ox O2 Delivery O2 Flow Rate FiO2 06/20/17 12:37 98 Nasal Cannula 3.00 06/20/17 12:00 99/66 (77) 06/20/17 11:55 97.9 66 16 89/64 (72) 98 06/20/17 08:34 3.00 06/20/17 08:32 96 Nasal Cannula 3.00 06/20/17 07:25 97.7 77 18 113/59 (77) 97 06/20/17 04:00 98.0 72 16 103/55 (71) 95 06/20/17 04:00 71 06/20/17 00:00 70 06/20/17 00:00 98.1 72 16 104/60 (75) 98 06/19/17 21:18 Nasal Cannula 2.00 06/19/17 20:00 68 06/19/17 20:00 97.5 70 17 102/60 (74) 95 06/19/17 20:00 Nasal Cannula 2.00 06/19/17 16:43 96.4 69 24 102/66 (78) 96 06/19/17 16:00 68 06/19/17 14:14 69 24 97/56 (70) 98 06/19/17 13:57 96.9 68 24 93/58 (70) 98 Intake & Output 06/20/17 06/20/17 07:00 19:00 Intake Total 240 ml Balance 240 ml Intake Oral 240 ml # Voids 2 Physical Exam CONSTITUTIONAL/GENERAL: This is an thin patient, sitting in chair. TUBES/LINES/DRAINS: Oxygen via nasal cannula, PIV, right port, left AICD. SKIN: Color dusky. Thin hair due to recent chemo related alopecia. No jaundice, rashes, or lesions. Ecchymoses on upper extremities. Skin temperature appropriate. Not diaphoretic. ENT: Hearing grossly normal. Nose without bleeding or purulent drainage. Poor dentition. CARDIOVASCULAR: Regular rate and rhythm without murmurs. RESPIRATORY/CHEST: Labored respirations with conversation. Minimal air exchange on left, right diminished base. GASTROINTESTINAL: Abdomen soft, non-tender, nondistended. No guarding. Bowel sounds present. GENITOURINARY: Without palpable bladder distension. MUSCULOSKELETAL: Extremities with edema. NEUROLOGICAL: Awake and alert. Intermittent confusion. Follows commands. Limited insight. Moves all extremities. PSYCHIATRIC: + anxiety due to SOB. . Diagnostic Tests Laboratory Laboratory Tests Test 06/18/17 06:17 06/18/17 19:38 06/19/17 07:25 06/19/17 12:15 Blood Urea Nitrogen 14 MG/DL (7-18) Creatinine 0.83 MG/DL (0.50-1.00) Random Glucose 148 MG/DL (74-106) Calcium Level 8.9 MG/DL (8.5-10.1) Sodium Level 141 MEQ/L (136-145) Potassium Level 4.3 MEQ/L (3.5-5.1) Chloride Level 105 MEQ/L (98-107) Carbon Dioxide Level 30.1 MEQ/L (21.0-32.0) Anion Gap 6 MEQ/L (5-15) Estimat Glomerular Filtration Rate 68 ML/MIN (>89) Free Thyroxine 0.94 NG/DL (0.76-1.46) Total Triiodothyronine 60 NG/DL (60-181) White Blood Count 6.0 TH/MM3 (4.0-11.0) Red Blood Count 3.87 MIL/MM3 (4.00-5.30) Hemoglobin 13.4 GM/DL (11.6-15.3) Hematocrit 40.9 % (35.0-46.0) Mean Corpuscular Volume 105.8 FL (80.0-100.0) Mean Corpuscular Hemoglobin 34.7 PG (27.0-34.0) Mean Corpuscular Hemoglobin Concent 32.8 % (32.0-36.0) Red Cell Distribution Width 17.7 % (11.6-17.2) Platelet Count 44 TH/MM3 (150-450) Mean Platelet Volume 10.9 FL (7.0-11.0) Pleural Fluid WBC 569 /MM3 (0-10) Pleural Fluid RBC 2163 /MM3 (0-0) Pleural Fluid Neutrophils 54 % Pleural Fluid Lymphocytes 35 % Pleural Fluid Monocytes 9 % Pleural Fluid Mesothelial Cells 1 % Pleural Fluid Plasma Cells 1 % Pleural Fluid Comment Pleural Fluid Total Protein 1.5 GM/DL Pleural Fluid LDH 94 U/L Pleural Fluid Glucose 134 MG/DL Result Diagram: 06/19/17 0725 06/18/17616 Imaging Last Impressions Thoracentesis Ultrasound 06/19/17 0600 Signed Impressions: Service Date/Time: May 07:58 - CONCLUSION: Uncomplicated ultrasound guided thoracentesis. Shaun Zuniga MD Chest X-Ray 06/19/17 0000 Signed Impressions: Service Date/Time: May 12:37 - CONCLUSION: 1. No pneumothorax status post thoracotomy. 2. Stable appearance with blunting of the left costophrenic angle and abnormal opacity at the left lung base. 3. Status post median sternotomy and cardiomegaly again noted. Alli Grey MD Lower Extremity Ultrasound 06/18/17 0000 Signed Impressions: Service Date/Time: Sunday, June 18, 2017 11:42 - CONCLUSION: Normal examination. There is a small thrombosed varicosity in the left popliteal fossa Poncho Omer MD Chest Ultrasound 06/17/17 0000 Signed Impressions: Service Date/Time: Saturday, June 17, 2017 15:47 - CONCLUSION: Left pleural effusion marked for thoracentesis. Feliciano Rm MD Chest CT 06/17/17 0000 Signed Impressions: Service Date/Time: Sunday, June 18, 2017 10:49 - CONCLUSION: The patient has a stable left suprahilar mass causing narrowing of both the left upper lobe bronchus and the pulmonary artery to the left upper lobe. The mass is stable in size since the April exam measuring 5.3 x 6.2 cm. No evidence of pulmonary embolism. Poncho Omer MD Barium Swallow X-Ray 06/17/17 0000 Signed Impressions: Service Date/Time: Saturday, June 17, 2017 14:56 - CONCLUSION: Mildly delayed passage of barium through the esophagus. No fixed focal narrowing identified. No gross evidence of aspiration. Feliciano Rm MD . Assessment and Plan Disease Oriented Problem List: (1) Pleural effusion, left (2) Thrombocytopenia (3) Non-small cell lung cancer (4) Coronary artery disease (5) COPD (chronic obstructive pulmonary disease) (6) CHF (congestive heart failure) (7) Hyperthyroidism (8) Possible myelodysplastic syndrome (9) Elevated troponin (10) Lung cancer Symptom Scale: (1) Anxiety 0-10 Scale: Unable to quantify (2) Shortness of breath 0-10 Scale: Unable to quantify Pertinent Non-Medical Issues Psychosocial: , . Has 3 adult children-2 sons and 1 daughter live in [place]. Spiritual: Worship kamar. 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 Legal: Patient appears capacitated to make her own healthcare decisions at this time. Should she lose capacity, patient completed designation of healthcare surrogate naming her son Chance "Clarke" Sole as primary healthcare surrogate and her daughter Pedrito Whipple has alternate healthcare surrogate. Ethical issues impacting care: No known concerns at this time. . Important Contacts * Chance Whipple (Dude), son/primary HCS: [phone] * Pedrito Whipple, daughter/alternate HCS: she does not know phone number. * Alli Whipple, (currently ): [phone] . Prognosis Mrs. Thompson is a 71-year-old female with COPD, CHF, progressive stage III non- small cell lung cancer, large left pleural effusion multiple other comorbidities , declining functional, nutritional and health status over the past few months. Overall prognosis is poor. Hospice appropriate if goals are comfort oriented. . Code Status: Full Code Plan * Patient appears capacitated to make her own healthcare decisions at this time. Should she lose capacity, patient completed designation of healthcare surrogate naming her son Chance "Clarke" Sole as primary healthcare surrogate and her daughter Pedrito Whipple has alternate healthcare surrogate. * FULL CODE * Patient tells me she met with hospice and was hoping to speak with me again because she does not quite understand everything. She indicates that she spoke with Dr. Wong who reported she is no longer a candidate for additional chemotherapy. We reviewed that without being able to receive chemotherapy for the underlying lung cancer that she will continue to decline functionally, nutritionally and overall health will decline and she will from this disease. She indicates that she still wants to " try." We talked about hospice services. I explained differences between hospice and continued aggressive care. We talked about CODE STATUS at length, advised that if she ends up on mechanical ventilation that she will not likely survive and that this will leave her children to make decisions for having to take her off of life support. She indicates that that her children had to take their father off of life support recently and she does not want them to have to do that. However with further discussion she is not ready to consider NO CODE status. At this point in time she still wants to do everything she can to stay alive as long as she can. Her goals are not currently hospice appropriate. She would like to speak with her children before making a decision to transition to comfort measures/hospice support. I have again offered to call and speak with her children even while I am in the room, she continues to decline adamantly. She indicates that her daughter know well will be arriving from out of state on June 26 and she will talk to her at that time. At this time palliative care recommendation would be to consider transition to rehab as she wants to attempt to get stronger, still desires FULL CODE and will not make a decision to transition to hospice services/comfort oriented goals until she is able to speak with her children. * SYMPTOMS: Dyspnea secondary to CHF, COPD, lung cancer, pleural effusion, myelodysplasia. On oxygen via nasal cannula. May benefit from thoracentesis given large left pleural effusion. Anxiety: Secondary to shortness of breath. On Paxil. Patient is reluctant to try medication for anxiety, she reports that she has had adverse reaction to benzodiazepines (Xanax and Ativan) in the past. Offered low-dose medication, she will consider and let me know if she decides to try something. * Palliative care will continue to follow to assist with medication, clarification of medical treatment goals and symptom management as needed. . Attestation To help prompt me to consider important information that might be impacting today's encounter and assessment, information from prior notes written by myself or my colleagues may have been "brought forward" into today's note. My signature on this note, however, is an attestation that I personally performed the exam, history, and/or decision-making noted today, and, unless otherwise indicated, the interactions with patient, family, and staff as well as the review of records all occurred today. I also attest that the listed assessment and stated plan reflect my best clinical judgment today based on the combination of historical information, prior notes, and today's exam/ interactions. When time spent is documented, it refers only to time spent today by the signer, or if indicated, combined time spent today by collaborating physician/nurse practitioner. Marlin Mina [facility] Jun 20, 2017 14:11
[2017-06-20] MEDS ORDERED: HYDR4TAB PO (14:55)
--- NOTE | 2017-06-20 16:51 | HHI.PR ---
Subjective Remarks Pt states SOB improved. No nausea or vomiting. Was able to sit on recliner and felt better doing so. Wants to go to rehab first to get stronger. Just spoke w RN, SBP <100 but MAP 66 Objective Vitals Vital Signs Date Time Temp Pulse Resp B/P (MAP) Pulse Ox O2 Delivery O2 Flow Rate FiO2 06/20/17 15:20 92 21 06/20/17 12:37 98 Nasal Cannula 3.00 06/20/17 12:00 99/66 (77) 06/20/17 11:55 97.9 66 16 89/64 (72) 98 06/20/17 08:34 3.00 06/20/17 08:32 96 Nasal Cannula 3.00 06/20/17 07:25 97.7 77 18 113/59 (77) 97 06/20/17 04:00 98.0 72 16 103/55 (71) 95 06/20/17 04:00 71 06/20/17 00:00 70 06/20/17 00:00 98.1 72 16 104/60 (75) 98 06/19/17 21:18 Nasal Cannula 2.00 06/19/17 20:00 68 06/19/17 20:00 97.5 70 17 102/60 (74) 95 06/19/17 20:00 Nasal Cannula 2.00 I/O 06/19/17 06/19/17 06/19/17 06/20/17 06/20/17 06/20/17 07:00 15:00 23:00 07:00 15:00 23:00 Intake Total 240 ml 240 ml Output Total 1020 ml Balance -780 ml 240 ml Intake Oral 240 ml 240 ml Output Urine Total 1020 ml # Voids 2 1 2 2 Result Diagram: 06/19/17 0725 06/18/17 0617 Imaging Last Impressions Thoracentesis Ultrasound 06/19/17 0600 Signed Impressions: Service Date/Time: May 07:58 - CONCLUSION: Uncomplicated ultrasound guided thoracentesis. Shaun Zuniga MD Chest X-Ray 06/19/17 0000 Signed Impressions: Service Date/Time: May 12:37 - CONCLUSION: 1. No pneumothorax status post thoracotomy. 2. Stable appearance with blunting of the left costophrenic angle and abnormal opacity at the left lung base. 3. Status post median sternotomy and cardiomegaly again noted. Alli Grey MD Lower Extremity Ultrasound 06/18/17 Signed Impressions: Service Date/Time: Sunday, June 18, 2017 11:42 - CONCLUSION: Normal examination. There is a small thrombosed varicosity in the left popliteal fossa Poncho Omer MD Chest Ultrasound 06/17/17 Signed Impressions: Service Date/Time: Saturday, June 17, 2017 15:47 - CONCLUSION: Left pleural effusion marked for thoracentesis. Feliciano Rm MD Chest CT 06/17/17 Signed Impressions: Service Date/Time: Sunday, June 18, 2017 10:49 - CONCLUSION: The patient has a stable left suprahilar mass causing narrowing of both the left upper lobe bronchus and the pulmonary artery to the left upper lobe. The mass is stable in size since the April exam measuring 5.3 x 6.2 cm. No evidence of pulmonary embolism. Poncho Omer MD Barium Swallow X-Ray 06/17/17 Signed Impressions: Service Date/Time: Saturday, June 17, 2017 14:56 - CONCLUSION: Mildly delayed passage of barium through the esophagus. No fixed focal narrowing identified. No gross evidence of aspiration. Feliciano Rm MD Objective Remarks GENERAL: sitting up in bed, eating some candy CARDIOVASCULAR: Regular rate and rhythm without murmurs RESPIRATORY: No accessory muscles. appears clear on exam today, no wheezing. GASTROINTESTINAL: Abdomen soft, non-tender, nondistended. No guarding. MUSCULOSKELETAL: trace to 1+ bilateral LE edema extending up into the thighs with trace edema. NEUROLOGICAL: Awake and alert. Cranial nerves II through XII grossly intact. Motor and sensory grossly within normal limits. Normal speech. PSYCHIATRIC: Appropriate mood and affect. Normal judgment and insight. A/P Problem List: (1) Hypokalemia ICD Code: E87.6 - Hypokalemia Status: Resolved (2) Dysphagia ICD Code: R13.10 - Dysphagia, unspecified Status: Acute (3) COPD (chronic obstructive pulmonary disease) ICD Code: J44.9 - Chronic obstructive pulmonary disease, unspecified Status: Chronic (4) Lung cancer ICD Code: C34.90 - Malignant neoplasm of unspecified part of unspecified bronchus or lung Status: Chronic (5) Shortness of breath ICD Code: R06.02 - Shortness of breath Status: Resolved (6) Non-small cell lung cancer ICD Code: C34.90 - Malignant neoplasm of unspecified part of unspecified bronchus or lung Status: Chronic (7) Elevated troponin ICD Code: R74.8 - Abnormal levels of other serum enzymes Status: Acute (8) Pleural effusion, left ICD Code: J90 - Pleural effusion, not elsewhere classified Status: Resolved (9) Coronary artery disease ICD Code: I25.10 - Atherosclerotic heart disease of [place] coronary artery without angina pectoris Status: Chronic (10) Hyperthyroidism ICD Code: E05.90 - Thyrotoxicosis, unspecified without thyrotoxic crisis or storm Status: Chronic (11) Thrombocytopenia ICD Code: D69.6 - Thrombocytopenia, unspecified (12) Possible myelodysplastic syndrome Status: Chronic (13) CHF (congestive heart failure) ICD Code: I50.9 - Heart failure, unspecified Status: Chronic (14) Anxiety ICD Code: F41.9 - Anxiety disorder, unspecified Status: Chronic Assessment and Plan 1. Shortness of breath/COPD exacerbation/CHF exacerbation/LE edema Acute on chronic systolic heart failure Per review of previous cardiology note, echocardiogram with EF 35%. Patient status post AICD [address] Moran Patient found to be hypoxic by EMS with an oxygen saturation in the 50s. ABG 7.44/43/138/28. BNP elevated at 871 Chest x-ray significant for consolidation and moderate to large effusion seen at the left lung base, worse. There is left volume loss and masslike opacity of the left hilar region. Chest US with 146cc fluid -continue on supplemental oxygen to maintain adequate O2 saturation -Initially treated with IV Lasix. Monitor electrolytes. Strict I&Os. -Duonebs scheduled -Pt will require oxygen at rehab po oral Lasix. 2. Non-small cell lung cancer The patient's oncologist, Dr. Wong consulted, appreciate recommendations Chest CT ordered by Dr. Wong revealing stable left suprahilar mass. Per Dr. Wong, patient not a candidate for additional chemotherapy due to poor performance status Patient declines hospice at this time but is agreeable to palliative care -Consult palliative care. Appreciate palliative care consultation. Initially patient willing to go to hospice at the care center, however patient refusing to be DNR/DNI so patient is not a candidate for hospice at the [facility]. Pt will need rehab. CM consulted for assistance w d/c planning to rehab and hospice can f/u there. 3. Elevated troponin troponin 0.29 -> 0.28 -> 0.28 Hypotensive Cardiology consulted - recommended conservative management. I have decreased dose of lisinopril to 2.5mg po daily and metoprolol to 12.5mg po BID 4. Atrial fibrillation -Continue home amiodarone, metoprolol -Continue anticoagulation with aspirin/Plavix 5. CAD/hyperlipidemia/hyperthyroidism/GERD Hypotensive. Hold parameters placed on antihypertensives. Decreased BP med doses 6. Hypokalemia -resolved s/p repletion 7. Dysphagia Dysphonia Speech therapy consulted for swallow evaluation with recs for mechanical soft/ thin liquid diet Barium swallow ordered showing no aspiration, mildly delayed passage of barium 8. Hyperthyroidism on Propylthiouracil TSH 26.7 T3 and T4 levels are normal. Elevated TSH is normal and treated hyperthyroidism. Continue PTU at current dose. 9. BLE edema and pain Doppler US negative for DVT. Edema improved. 10. Thrombocytopenia Macrocytosis Possible myelodysplastic syndrome No e/o active bleeding -continue on Plavix/ASA for now -continue to monitor platelets closely. Repeat CBC in am. FEN Heart healthy low salt diet Electrolytes: monitor and replete prn Discharge Planning Pt will require oxygen upon d/c. hold diuretics for now since bp borderline low. I have decreased lisinopril and metoprolol dose. May DC in am to rehab if bp stable. CM to assist w d/c planning Problem Qualifiers (1) Dysphagia: Qualified Codes: R13.10 - Dysphagia, unspecified (2) Coronary artery disease: Qualified Codes: I25.10 - Atherosclerotic heart disease of [place] coronary artery without angina pectoris Darling Dale MD Jun 20, 2017 16:51
[2017-06-20] MEDS ORDERED: PILL SPLITTER OTHER PRN (18:15)
[2017-06-20] MEDS: ATORVASTATIN 20 MG TAB PO SCH (19:49)
[2017-06-21] VITALS (12 sets, daily range): BP systolic 99–118; BP diastolic 63–81; PULSE 67–76; RESP 17–20; TEMP 97.5–98.3; O2SAT 94–100
[2017-06-21] MEDS: RESP: ALBUTEROL 2.5 MG/IPRATROPIUM 0.5 MG NEB (PRN) NEB (00:15)
[2017-06-21] MEDS: NYSTATIN 100,000 U/GM PWD 15 GM BTL TOPICAL SCH ×2 (03:07→17:55)
[2017-06-21] MEDS: ACETAMINOPHEN 325 MG TAB PO PRN ×2 (05:14→20:33)
--- NOTE | 2017-06-21 07:44 | HHI.PR ---
Subjective Remarks Patient seen and examined this morning. Vitals are stable and the patient is afebrile. Tolerating breakfast. Denies CP or SOB. Still has cough. Overall states she feel well without concerns. Objective Vital Signs Date Time Temp Pulse Resp B/P (MAP) Pulse Ox O2 Delivery O2 Flow Rate FiO2 06/21/17 07:00 72 06/21/17 04:00 76 06/21/17 04:00 97.9 74 17 109/81 (90) 100 06/21/17 00:17 96 Nasal Cannula 3.00 06/21/17 00:00 98.3 75 19 106/69 (81) 94 Manual Cuff/Auscultation 06/21/17 00:00 74 06/20/17 20:00 70 06/20/17 20:00 Nasal Cannula 3.00 21 06/20/17 20:00 98.0 70 17 108/72 (84) 97 06/20/17 16:15 97.7 72 16 94/63 (73) 93 06/20/17 15:20 92 Nasal Cannula 2.00 06/20/17 12:37 98 Nasal Cannula 3.00 06/20/17 12:00 99/66 (77) 06/20/17 11:55 97.9 66 16 89/64 (72) 98 06/20/17 08:34 3.00 06/20/17 08:32 96 Nasal Cannula 3.00 I/O 06/20/17 06/20/17 06/20/17 06/21/17 06/21/17 06/21/17 07:00 15:00 23:00 07:00 15:00 23:00 Intake Total 240 ml 400 ml Output Total 300 ml Balance 240 ml 100 ml Intake Oral 240 ml 400 ml Output Urine Total 300 ml # Voids 2 2 Result Diagram: 06/19/1725 06/18/1717 Imaging Last Impressions Thoracentesis Ultrasound 06/19/17 0600 Signed Impressions: Service Date/Time: May 07:58 - CONCLUSION: Uncomplicated ultrasound guided thoracentesis. Shaun Zuniga MD Chest X-Ray 06/19/17 0000 Signed Impressions: Service Date/Time: May 12:37 - CONCLUSION: 1. No pneumothorax status post thoracotomy. 2. Stable appearance with blunting of the left costophrenic angle and abnormal opacity at the left lung base. 3. Status post median sternotomy and cardiomegaly again noted. Alli Grey MD Lower Extremity Ultrasound 06/18/17 Signed Impressions: Service Date/Time: Sunday, June 18, 2017 11:42 - CONCLUSION: Normal examination. There is a small thrombosed varicosity in the left popliteal fossa Poncho Omer MD Chest Ultrasound 06/17/17 Signed Impressions: Service Date/Time: Saturday, June 17, 2017 15:47 - CONCLUSION: Left pleural effusion marked for thoracentesis. Feliciano Rm MD Chest CT 06/17/17 Signed Impressions: Service Date/Time: Sunday, June 18, 2017 10:49 - CONCLUSION: The patient has a stable left suprahilar mass causing narrowing of both the left upper lobe bronchus and the pulmonary artery to the left upper lobe. The mass is stable in size since the April exam measuring 5.3 x 6.2 cm. No evidence of pulmonary embolism. Poncho Omer MD Barium Swallow X-Ray 06/17/17 Signed Impressions: Service Date/Time: Saturday, June 17, 2017 14:56 - CONCLUSION: Mildly delayed passage of barium through the esophagus. No fixed focal narrowing identified. No gross evidence of aspiration. Feliciano Rm MD Objective Remarks GENERAL: older appearing woman, nad SKIN: Warm and dry. HEAD: Normocephalic. EYES: No scleral icterus. No injection or drainage. NECK: Supple, trachea midline. No JVD or lymphadenopathy. CARDIOVASCULAR: Regular rate and rhythm without murmurs, gallops, or rubs. RESPIRATORY: Breath sounds equal bilaterally. No accessory muscle use. GASTROINTESTINAL: Abdomen soft, non-tender, nondistended. MUSCULOSKELETAL:trace bilat LE edema A/P Problem List: (1) Coronary artery disease ICD Code: I25.10 - Atherosclerotic heart disease of [place] coronary artery without angina pectoris Status: Chronic (2) Shortness of breath ICD Code: R06.02 - Shortness of breath Status: Resolved (3) Non-small cell lung cancer ICD Code: C34.90 - Malignant neoplasm of unspecified part of unspecified bronchus or lung Status: Chronic (4) Hyperthyroidism ICD Code: E05.90 - Thyrotoxicosis, unspecified without thyrotoxic crisis or storm Status: Chronic (5) CHF (congestive heart failure) ICD Code: I50.9 - Heart failure, unspecified Status: Chronic (6) Pleural effusion, left ICD Code: J90 - Pleural effusion, not elsewhere classified Status: Resolved Assessment and Plan In summary this is a 71-year-old female patient with history of COPD, CHF, progressive stage III non-small cell lung cancer, and a large left pleural effusion who presented to the ER for deconditioning and shortness of breath. She received thoracentesis of a large left pleural effusion with subsequent improvement in her pulmonary status. 1. Shortness of breath/COPD exacerbation/CHF exacerbation/LE edema Acute on chronic systolic heart failure Per review of previous cardiology note, echocardiogram with EF 35%. Patient status post AICD [address] Moran Patient found to be hypoxic by EMS with an oxygen saturation in the 50s. ABG 7.44/43/138/28. BNP elevated at 871 Chest x-ray significant for consolidation and moderate to large effusion seen at the left lung base, worse. There is left volume loss and masslike opacity of the left hilar region. Chest US with 146cc fluid -continue on supplemental oxygen to maintain adequate O2 saturation -Ignacio scheduled -Pt will require oxygen at rehab -P.o. Lasix have been on hold due to hypotension. 2. Non-small cell lung cancer The patient's oncologist, Dr. Wong consulted, appreciate recommendations Chest CT ordered by Dr. Wong revealing stable left suprahilar mass. Per Dr. Wong, patient not a candidate for additional chemotherapy due to poor performance status Patient declines hospice at this time but is agreeable to palliative care -Consult palliative care. Patient would like to discuss hospice with her children. If her goals remain to have aggressive care than rehab would be most appropriate upon discharge. Appreciate palliative care consultation. Initially patient willing to go to hospice at the [facility], however patient refusing to be DNR/DNI so patient is not a candidate for hospice at the [facility]. Pt will need rehab. CM consulted for assistance w d/c planning to rehab and hospice can f/u there. 3. Elevated troponin troponin 0.29 -> 0.28 -> 0.28 Hypotensive Cardiology consulted - recommended conservative management. Currently on lisinopril 2.5mg po daily and metoprolol to 12.5mg po BID ( continue to watch BP closely and titrate down further as needed. Blood pressures have been stable, map stable) 4. Atrial fibrillation -Continue home amiodarone, metoprolol -Continue anticoagulation with aspirin/Plavix 5. CAD/hyperlipidemia/hyperthyroidism/GERD Hypotensive. Hold parameters placed on antihypertensives. Decreased BP med doses 6. Hypokalemia -resolved s/p repletion 7. Dysphagia Dysphonia Speech therapy consulted for swallow evaluation with recs for mechanical soft/ thin liquid diet Barium swallow ordered showing no aspiration, mildly delayed passage of barium 8. Hyperthyroidism on Propylthiouracil TSH 26.7 T3 and T4 levels are normal. Elevated TSH is normal and treated hyperthyroidism. Continue PTU at current dose. 9. BLE edema and pain Doppler US negative for DVT. Edema improved. 10. Thrombocytopenia Macrocytosis Possible myelodysplastic syndrome No e/o active bleeding -continue on Plavix/ASA for now -continue to monitor platelets closely. Repeat CBC in am. FEN Heart healthy low salt diet Electrolytes: monitor and replete prn Discharge Planning BP stable Oncology has cleared for discharge Anticipate discharge to SNF pending placement, PT recommends rehab Problem Qualifiers (1) Coronary artery disease: Qualified Codes: I25.10 - Atherosclerotic heart disease of [place] coronary artery without angina pectoris Dia Dobbs MD Jun 21, 2017 07:44
[2017-06-21] MEDS: RESP: ALBUTEROL 2.5 MG/IPRATROPIUM 0.5 MG NEB (SCH) NEB ×3 (08:01→15:15)
[2017-06-21] MEDS: METOPROLOL TARTRATE 25 MG TAB PO SCH ×2 (09:17→20:32)
[2017-06-21] MEDS: POTASSIUM CHLORIDE 10 MEQ CAP PO SCH ×2 (09:17→20:32)
[2017-06-21] MEDS: LISINOPRIL 5 MG TAB PO SCH (09:17)
[2017-06-21] MEDS: PROPYLTHIOURACIL 50 MG TAB PO SCH ×2 (09:17→20:31)
[2017-06-21] MEDS: PANTOPRAZOLE SOD 40 MG DELAYED RELEASE TAB PO SCH (09:17)
[2017-06-21] MEDS: LACTOBACILLUS ACIDOPHILUS TAB PO SCH ×2 (09:17→20:31)
[2017-06-21] MEDS: ASPIRIN 325 MG TAB PO SCH (09:17)
[2017-06-21] MEDS: SODIUM CHLORIDE 0.9% FLUSH 10 ML FLUSH IV FLUSH SCH ×2 (09:18→20:33)
[2017-06-21] MEDS ORDERED: METO25TA3 PO (09:56)
[2017-06-21] MEDS ORDERED: ATOR20TA15 PO (09:56)
[2017-06-21] MEDS ORDERED: LISI2.5T3 PO (09:56)
--- NOTE | 2017-06-21 09:58 | HHI.DCPOC ---
Discharge Care Plan Diagnosis: (1) COPD (chronic obstructive pulmonary disease) (2) Non-small cell lung cancer (3) CHF (congestive heart failure) (4) Dysphagia (5) Shortness of breath Goals to Promote Your Health * To prevent worsening of your condition and complications * To maintain your health at the optimal level Directions to Meet Your Goals Take your medications as prescribed Follow your dietary instruction Follow activity as directed Keep your appointments as scheduled Take your immunizations and boosters as scheduled If your symptoms worsen call your PCP, if no PCP go to Urgent Care Center or Emergency Room Smoking is Dangerous to Your Health. Avoid second hand smoke Call the 24-hour hour crisis hotline for domestic abuse at Dia Dobbs MD Jun 21, 2017 09:57
[2017-06-21] MEDS: PAROXETINE 20 MG PO SCH (10:25)
--- NOTE | 2017-06-21 14:26 | HHI.DS ---
Discharge Summary Admission Date Jun 16, 2017 at 22:52 Discharge Date: Jun 21, 2017 Admitting Diagnosis CHF exacerbation, elevated troponin Brief History "71-year-old female with a past medical history significant for non-small cell lung cancer, stage III, anxiety, A. fib anticoagulated on aspirin and Plavix, COPD not on home oxygen, CHF (no recent echo for comparison), CAD status post [place] in 1995, depression, GERD, hyperlipidemia and hyperthyroidism presents to the emergency department for evaluation of increasing shortness of breath. The patient reports that she started to have shortness of breath approximately 4 days ago and it has been consistently worsening. She endorses a cough that is at her baseline and dry. She denies any fever/chills. She has bilateral lower extremity edema with new onset of approximately 6 days ago. She was recently discharged from [facility] where her AICD was replaced. She states she has the AICD secondary to CHF. Her oncologist is Dr. Wong. The patient denies any abdominal pain. No chest pain or shortness of breath. No nausea/ vomiting/diarrhea. No lateralizing signs/symptoms." CBC/BMP: 06/19/17 0725 06/18/17 0617 Significant Findings Laboratory Tests Test 06/18/17 19:38 06/19/17 07:25 06/19/17 12:15 Red Blood Count 3.87 MIL/MM3 (4.00-5.30) Mean Corpuscular Volume 105.8 FL (80.0-100.0) Mean Corpuscular Hemoglobin 34.7 PG (27.0-34.0) Red Cell Distribution Width 17.7 % (11.6-17.2) Platelet Count 44 TH/MM3 (150-450) Pleural Fluid WBC 569 /MM3 (0-10) Pleural Fluid RBC 2163 /MM3 (0-0) Imaging Last Impressions Thoracentesis Ultrasound 06/19/17 0600 Signed Impressions: Service Date/Time: May 07:58 - CONCLUSION: Uncomplicated ultrasound guided thoracentesis. Shaun Zuniga MD Chest X-Ray 06/19/17 0000 Signed Impressions: Service Date/Time: May 12:37 - CONCLUSION: 1. No pneumothorax status post thoracotomy. 2. Stable appearance with blunting of the left costophrenic angle and abnormal opacity at the left lung base. 3. Status post median sternotomy and cardiomegaly again noted. Alli Grey MD Lower Extremity Ultrasound 06/18/17 Signed Impressions: Service Date/Time: Sunday, June 18, 2017 11:42 - CONCLUSION: Normal examination. There is a small thrombosed varicosity in the left popliteal fossa Poncho Omer MD Chest Ultrasound 06/17/17 Signed Impressions: Service Date/Time: Saturday, June 17, 2017 15:47 - CONCLUSION: Left pleural effusion marked for thoracentesis. Feliciano mR MD Chest CT 06/17/17 Signed Impressions: Service Date/Time: Sunday, June 18, 2017 10:49 - CONCLUSION: The patient has a stable left suprahilar mass causing narrowing of both the left upper lobe bronchus and the pulmonary artery to the left upper lobe. The mass is stable in size since the April exam measuring 5.3 x 6.2 cm. No evidence of pulmonary embolism. Poncho Omer MD Barium Swallow X-Ray 06/17/17 Signed Impressions: Service Date/Time: Saturday, June 17, 2017 14:56 - CONCLUSION: Mildly delayed passage of barium through the esophagus. No fixed focal narrowing identified. No gross evidence of aspiration. Feliciano Rm MD Hospital Course 71-year-old female patient with history of COPD, CHF, progressive stage III non- small cell lung cancer, and a large left pleural effusion who presented to the ER for deconditioning and shortness of breath. She received thoracentesis of a large left pleural effusion with subsequent improvement in her pulmonary status. Patient experienced hypotension during hospitalization so her lisinopril and metoprolol were titrated down. Her dysphasia improved. She was able to tolerate her soft diet. By June 21 patient had reached maximum benefit from inpatient hospitalization. She was cleared by oncology for discharge and was discharged to SNF. Pt Condition on Discharge: Stable Discharge Disposition: Discharge to SNF Discharge Instructions DIET: Follow Instructions for: Heart Healthy Diet, Soft Diet Activities you can perform: Weight Bearing as Windy Follow up Referrals: PCP Follow-up New Medications: Atorvastatin (Atorvastatin) 20 Mg Tab 20 MG PO HS for hld, #30 TAB Lisinopril (Lisinopril) 2.5 Mg Tab 2.5 MG PO DAILY, #30 TAB 0 Refills Metoprolol Tartrate (Metoprolol Tartrate) 25 Mg Tab 12.5 MG PO BID for htn, #60 TAB Continued Medications: Amiodarone (Amiodarone) 200 Mg Tab 200 MG PO DAILY for Regulate Heart Beat, #30 TAB 0 Refills Aspirin (Aspirin) 325 Mg Tab 325 MG PO DAILY, #30 TAB 0 Refills Multiple Vitamins W/ Minerals (Centrum) 1 Chew 1 TAB CHEW DAILY for Nutritional Supplement, TAB 0 Refills Omeprazole (Omeprazole) 40 Mg Cap 40 MG PO DAILY, #30 CAP 0 Refills Paroxetine (Paxil) 10 Mg Tab 20 MG PO DAILY, #30 TAB 0 Refills Propylthiouracil (Propylthiouracil) 50 Mg Tab 100 MG PO Q12HR for Thyroid, #60 TAB 0 Refills Discontinued Medications: Furosemide (Furosemide) 20 Mg Tab 20 MG PO DAILY, #30 TAB 0 Refills Levofloxacin (Levaquin) 500 Mg Tablet 500 MG PO Q24H for infection , #5 MG Lisinopril (Lisinopril) 5 Mg Tab 5 MG PO DAILY for Blood Pressure Management, #30 TAB 0 Refills Metoprolol Tartrate (Metoprolol Tartrate) 25 Mg Tab 25 MG PO BID, #60 TAB 0 Refills Potassium Chloride ER (Potassium Chloride ER) 10 Meq Cap 10 MEQ PO BID for Electrolyte Replacement, #60 CAP 0 Refills Rosuvastatin (Rosuvastatin) 10 Mg Tab 10 MG PO HS for Cholesterol Management, TAB 0 Refills Dia Dobbs MD Jun 21, 2017 14:26
[2017-06-21] MEDS: ATORVASTATIN 20 MG TAB PO SCH (20:31)
[2017-06-22] VITALS (17 sets, daily range): BP systolic 111–133; BP diastolic 64–75; PULSE 64–75; RESP 18–20; TEMP 96.8–97.3; O2SAT 97–100
[2017-06-22] MEDS ORDERED: ALPRAZolam 0.5 MG TAB PO PRN (03:00)
[2017-06-22] MEDS: NYSTATIN 100,000 U/GM PWD 15 GM BTL TOPICAL SCH ×2 (05:42→16:53)
--- NOTE | 2017-06-22 07:09 | HHI.PR ---
Subjective Remarks Patient seen and examined this morning. Vitals are stable and the patient is afebrile. Sitting up in chair eating breakfast. Reports feeling better. Denies CP or SOB. Objective Vital Signs Date Time Temp Pulse Resp B/P (MAP) Pulse Ox O2 Delivery O2 Flow Rate FiO2 06/22/17 04:01 73 06/22/17 04:00 97.2 75 18 133/64 (87) 97 06/22/17 00:12 97.3 70 18 133/70 (91) 100 06/22/17 00:12 73 06/22/17 00:00 100 Nasal Cannula 3.00 06/21/17 20:28 72 06/21/17 20:28 97.6 72 18 99/63 (75) 100 06/21/17 15:25 97.6 70 20 110/64 (79) 99 06/21/17 15:15 94 Nasal Cannula 3.00 06/21/17 15:00 67 06/21/17 11:08 98.3 71 18 106/67 (80) 99 06/21/17 11:00 72 06/21/17 08:05 98 Nasal Cannula 3.00 06/21/17 08:02 Nasal Cannula 3.00 06/21/17 07:34 97.5 71 19 118/74 (89) 97 I/O 06/21/17 06/21/17 06/21/17 06/22/17 06/22/17 06/22/17 07:00 15:00 23:00 07:00 15:00 23:00 Intake Total 600 ml 240 ml Output Total 200 ml Balance 600 ml 40 ml Intake Oral 600 ml 240 ml Output Urine Total 200 ml # Voids 4 # Bowel Movements 0 Result Diagram: 06/19/17 0725 06/18/17 0617 Imaging Last Impressions Thoracentesis Ultrasound 06/19/17 0600 Signed Impressions: Service Date/Time: May 07:58 - CONCLUSION: Uncomplicated ultrasound guided thoracentesis. Shaun Zuniga MD Chest X-Ray 06/19/17 0000 Signed Impressions: Service Date/Time: May 12:37 - CONCLUSION: 1. No pneumothorax status post thoracotomy. 2. Stable appearance with blunting of the left costophrenic angle and abnormal opacity at the left lung base. 3. Status post median sternotomy and cardiomegaly again noted. Alli Grey MD Lower Extremity Ultrasound 06/18/17 Signed Impressions: Service Date/Time: Sunday, June 18, 2017 11:42 - CONCLUSION: Normal examination. There is a small thrombosed varicosity in the left popliteal fossa Poncho Omer MD Chest Ultrasound 06/17/17 Signed Impressions: Service Date/Time: Saturday, June 17, 2017 15:47 - CONCLUSION: Left pleural effusion marked for thoracentesis. Feliciano Rm MD Chest CT 06/17/17 Signed Impressions: Service Date/Time: Sunday, June 18, 2017 10:49 - CONCLUSION: The patient has a stable left suprahilar mass causing narrowing of both the left upper lobe bronchus and the pulmonary artery to the left upper lobe. The mass is stable in size since the April exam measuring 5.3 x 6.2 cm. No evidence of pulmonary embolism. Poncho Omer MD Barium Swallow X-Ray 06/17/17 Signed Impressions: Service Date/Time: Saturday, June 17, 2017 14:56 - CONCLUSION: Mildly delayed passage of barium through the esophagus. No fixed focal narrowing identified. No gross evidence of aspiration. Feliciano Rm MD Objective Remarks GENERAL: older appearing woman, sitting up in chair, nad SKIN: Warm and dry. HEAD: Normocephalic. EYES: No scleral icterus. No injection or drainage. NECK: Supple, trachea midline. No JVD or lymphadenopathy. CARDIOVASCULAR: Regular rate and rhythm without murmurs, gallops, or rubs. RESPIRATORY: Breath sounds equal bilaterally. No accessory muscle use. GASTROINTESTINAL: Abdomen soft, non-tender, nondistended. MUSCULOSKELETAL:trace bilat LE edema, left LE with palpable chord A/P Problem List: (1) Coronary artery disease ICD Code: I25.10 - Atherosclerotic heart disease of [place] coronary artery without angina pectoris Status: Chronic (2) Shortness of breath ICD Code: R06.02 - Shortness of breath Status: Resolved (3) Non-small cell lung cancer ICD Code: C34.90 - Malignant neoplasm of unspecified part of unspecified bronchus or lung Status: Chronic (4) Hyperthyroidism ICD Code: E05.90 - Thyrotoxicosis, unspecified without thyrotoxic crisis or storm Status: Chronic (5) CHF (congestive heart failure) ICD Code: I50.9 - Heart failure, unspecified Status: Chronic (6) Pleural effusion, left ICD Code: J90 - Pleural effusion, not elsewhere classified Status: Resolved Assessment and Plan In summary this is a 71-year-old female patient with history of COPD, CHF, progressive stage III non-small cell lung cancer, and a large left pleural effusion who presented to the ER for deconditioning and shortness of breath. She received thoracentesis of a large left pleural effusion with subsequent improvement in her pulmonary status. 1. Shortness of breath/COPD exacerbation/CHF exacerbation/LE edema Acute on chronic systolic heart failure Per review of previous cardiology note, echocardiogram with EF 35%. Patient status post AICD [address] Moran Patient found to be hypoxic by EMS with an oxygen saturation in the 50s. ABG 7.44/43/138/28. BNP elevated at 871 Chest x-ray significant for consolidation and moderate to large effusion seen at the left lung base, worse. There is left volume loss and masslike opacity of the left hilar region. Chest US with 146cc fluid -continue on supplemental oxygen to maintain adequate O2 saturation -Ignacio scheduled -Pt will require oxygen at rehab -P.o. Lasix have been on hold due to hypotension. 2. Non-small cell lung cancer The patient's oncologist, Dr. Wong consulted, appreciate recommendations Chest CT ordered by Dr. Wong revealing stable left suprahilar mass. Per Dr. Wong, patient not a candidate for additional chemotherapy due to poor performance status Patient declines hospice at this time but is agreeable to palliative care -Consult palliative care. Patient would like to discuss hospice with her children. If her goals remain to have aggressive care than rehab would be most appropriate upon discharge. Appreciate palliative care consultation. Initially patient willing to go to hospice at the [facility], however patient refusing to be DNR/DNI so patient is not a candidate for hospice at the [facility]. Pt will need rehab. CM consulted for assistance w d/c planning to rehab and hospice can f/u there. 3. Elevated troponin troponin 0.29 -> 0.28 -> 0.28 Hypotensive Cardiology consulted - recommended conservative management. Currently on lisinopril 2.5mg po daily and metoprolol to 12.5mg po BID ( continue to watch BP closely and titrate down further as needed. Blood pressures have been stable, map stable) 4. Atrial fibrillation -Continue home amiodarone, metoprolol -Continue anticoagulation with aspirin/Plavix 5. CAD/hyperlipidemia/hyperthyroidism/GERD Hypotensive. Hold parameters placed on antihypertensives. Decreased BP med doses 6. Hypokalemia -resolved s/p repletion 7. Dysphagia Dysphonia Speech therapy consulted for swallow evaluation with recs for mechanical soft/ thin liquid diet Barium swallow ordered showing no aspiration, mildly delayed passage of barium 8. Hyperthyroidism on Propylthiouracil TSH 26.7 T3 and T4 levels are normal. Elevated TSH is normal and treated hyperthyroidism. Continue PTU at current dose. 9. BLE edema and pain Doppler US negative for DVT. Edema improved. 10. Thrombocytopenia Macrocytosis Possible myelodysplastic syndrome No e/o active bleeding -continue on Plavix/ASA for now -continue to monitor platelets closely. Repeat CBC in am. FEN Heart healthy low salt diet Electrolytes: monitor and replete prn Discharge Planning Patient discharged on 06/21 No bed available at [facility] Waiting on placement Problem Qualifiers (1) Coronary artery disease: Qualified Codes: I25.10 - Atherosclerotic heart disease of [place] coronary artery without angina pectoris Dia Dobbs MD Jun 22, 2017 07:09
[2017-06-22] MEDS: PAROXETINE 20 MG PO SCH (08:58)
[2017-06-22] MEDS: PANTOPRAZOLE SOD 40 MG DELAYED RELEASE TAB PO SCH (08:58)
[2017-06-22] MEDS: METOPROLOL TARTRATE 25 MG TAB PO SCH ×2 (08:58→21:00)
[2017-06-22] MEDS: LISINOPRIL 5 MG TAB PO SCH (08:58)
[2017-06-22] MEDS: POTASSIUM CHLORIDE 10 MEQ CAP PO SCH ×2 (08:58→21:00)
[2017-06-22] MEDS: ASPIRIN 325 MG TAB PO SCH (08:58)
[2017-06-22] MEDS: LACTOBACILLUS ACIDOPHILUS TAB PO SCH ×2 (08:58→21:00)
[2017-06-22] MEDS: PROPYLTHIOURACIL 50 MG TAB PO SCH ×2 (08:58→21:00)
[2017-06-22] MEDS: ACETAMINOPHEN 325 MG TAB PO PRN (09:02)
[2017-06-22] MEDS: SODIUM CHLORIDE 0.9% FLUSH 10 ML FLUSH IV FLUSH SCH ×2 (09:03→21:00)
[2017-06-22] MEDS: RESP: ALBUTEROL 2.5 MG/IPRATROPIUM 0.5 MG NEB (PRN) NEB (11:37)
[2017-06-22] MEDS: ATORVASTATIN 20 MG TAB PO SCH (21:01)
[2017-06-23] VITALS (13 sets, daily range): BP systolic 116–151; BP diastolic 58–74; PULSE 68–74; RESP 18–20; TEMP 97.5–97.7; O2SAT 96–98
[2017-06-23] MEDS ORDERED: SODIUM CHLORIDE 0.9% FLUSH 10 ML FLUSH IV FLUSH PRN (03:30)
[2017-06-23] MEDS: NYSTATIN 100,000 U/GM PWD 15 GM BTL TOPICAL SCH (06:38)
[2017-06-23] MEDS: LISINOPRIL 5 MG TAB PO SCH (09:26)
[2017-06-23] MEDS: METOPROLOL TARTRATE 25 MG TAB PO SCH (09:27)
[2017-06-23] MEDS: LACTOBACILLUS ACIDOPHILUS TAB PO SCH (09:27)
[2017-06-23] MEDS: POTASSIUM CHLORIDE 10 MEQ CAP PO SCH (09:27)
[2017-06-23] MEDS: ASPIRIN 325 MG TAB PO SCH (09:27)
[2017-06-23] MEDS: PANTOPRAZOLE SOD 40 MG DELAYED RELEASE TAB PO SCH (09:27)
[2017-06-23] MEDS: PROPYLTHIOURACIL 50 MG TAB PO SCH (09:27)
[2017-06-23] MEDS: PAROXETINE 20 MG PO SCH (09:28)
[2017-06-23] MEDS: SODIUM CHLORIDE 0.9% FLUSH 10 ML FLUSH IV FLUSH SCH (09:28)
[2017-06-23] MEDS ORDERED: ALPR.5 PO (16:38)
--- NOTE | 2017-06-23 16:43 | HHI.PR ---
Subjective Remarks No complaints, patient is asleep but easily arousable. Denies any pain Discussed with RN, patient will be discharged later today. Waiting on transportation Objective Vitals Vital Signs Date Time Temp Pulse Resp B/P (MAP) Pulse Ox O2 Delivery O2 Flow Rate FiO2 06/23/17 13:28 Nasal Cannula 2.50 06/23/17 12:50 97.6 71 18 142/72 (95) 98 126/74 (91) 06/23/17 12:00 74 06/23/17 11:30 Nasal Cannula 2.00 06/23/17 10:32 97.6 74 18 151/68 (95) 98 149/63 (91) 06/23/17 08:00 69 06/23/17 06:04 69 06/23/17 05:04 68 06/23/17 04:52 97.5 68 20 116/58 (77) 98 06/23/17 04:03 68 06/23/17 03:01 69 06/23/17 02:05 68 06/23/17 01:04 69 06/23/17 00:02 71 06/23/17 00:00 97.7 71 18 125/66 (85) 96 06/22/17 23:01 70 06/22/17 22:03 67 06/22/17 21:02 64 06/22/17 20:52 Nasal Cannula 2.50 06/22/17 20:47 97.3 66 20 113/67 (82) 100 06/22/17 20:01 65 06/22/17 19:06 65 06/22/17 17:12 98 Nasal Cannula 2.50 I/O 06/22/17 06/22/17 06/22/17 06/23/17 06/23/17 06/23/17 07:00 15:00 23:00 07:00 15:00 23:00 Intake Total 240 ml 840 ml 240 ml Output Total 200 ml 100 ml Balance 40 ml 740 ml 240 ml Intake Oral 240 ml 840 ml 240 ml Output Urine Total 200 ml 100 ml # Voids 2 3 # Bowel Movements 2 Result Diagram: 06/19/17 0725 Imaging Last Impressions Thoracentesis Ultrasound 06/19/17 0600 Signed Impressions: Service Date/Time: May 07:58 - CONCLUSION: Uncomplicated ultrasound guided thoracentesis. Shaun Zuniga MD Chest X-Ray 06/19/17 0000 Signed Impressions: Service Date/Time: May 12:37 - CONCLUSION: 1. No pneumothorax status post thoracotomy. 2. Stable appearance with blunting of the left costophrenic angle and abnormal opacity at the left lung base. 3. Status post median sternotomy and cardiomegaly again noted. Alli Grey MD Lower Extremity Ultrasound 06/18/17 Signed Impressions: Service Date/Time: Sunday, June 18, 2017 11:42 - CONCLUSION: Normal examination. There is a small thrombosed varicosity in the left popliteal fossa Poncho Omer MD Chest Ultrasound 06/17/17 0000 Signed Impressions: Service Date/Time: Saturday, June 17, 2017 15:47 - CONCLUSION: Left pleural effusion marked for thoracentesis. Feliciano Rm MD Chest CT 06/17/17 Signed Impressions: Service Date/Time: Sunday, June 18, 2017 10:49 - CONCLUSION: The patient has a stable left suprahilar mass causing narrowing of both the left upper lobe bronchus and the pulmonary artery to the left upper lobe. The mass is stable in size since the April exam measuring 5.3 x 6.2 cm. No evidence of pulmonary embolism. Poncho Omer MD Barium Swallow X-Ray 06/17/17 Signed Impressions: Service Date/Time: Saturday, June 17, 2017 14:56 - CONCLUSION: Mildly delayed passage of barium through the esophagus. No fixed focal narrowing identified. No gross evidence of aspiration. Feliciano Rm MD Objective Remarks GENERAL: Sitting on recliner taking a nap CARDIOVASCULAR: Regular rate and rhythm without murmurs RESPIRATORY: No accessory muscles. appears clear on exam today, no wheezing. GASTROINTESTINAL: Abdomen soft, non-tender, nondistended. No guarding. MUSCULOSKELETAL: trace to 1+ bilateral LE edema A/P Problem List: (1) Hypokalemia ICD Code: E87.6 - Hypokalemia Status: Resolved (2) Dysphagia ICD Code: R13.10 - Dysphagia, unspecified Status: Acute (3) COPD (chronic obstructive pulmonary disease) ICD Code: J44.9 - Chronic obstructive pulmonary disease, unspecified Status: Chronic (4) Lung cancer ICD Code: C34.90 - Malignant neoplasm of unspecified part of unspecified bronchus or lung Status: Chronic (5) Shortness of breath ICD Code: R06.02 - Shortness of breath Status: Resolved (6) Non-small cell lung cancer ICD Code: C34.90 - Malignant neoplasm of unspecified part of unspecified bronchus or lung Status: Chronic (7) Elevated troponin ICD Code: R74.8 - Abnormal levels of other serum enzymes Status: Acute (8) Pleural effusion, left ICD Code: J90 - Pleural effusion, not elsewhere classified Status: Resolved (9) Coronary artery disease ICD Code: I25.10 - Atherosclerotic heart disease of [place] coronary artery without angina pectoris Status: Chronic (10) Hyperthyroidism ICD Code: E05.90 - Thyrotoxicosis, unspecified without thyrotoxic crisis or storm Status: Chronic (11) Thrombocytopenia ICD Code: D69.6 - Thrombocytopenia, unspecified (12) Possible myelodysplastic syndrome Status: Chronic (13) CHF (congestive heart failure) ICD Code: I50.9 - Heart failure, unspecified Status: Chronic (14) Anxiety ICD Code: F41.9 - Anxiety disorder, unspecified Status: Chronic Assessment and Plan 71-year-old female patient with history of COPD, CHF, progressive stage III non- small cell lung cancer, and a large left pleural effusion who presented to the ER for deconditioning and shortness of breath. She received thoracentesis of a large left pleural effusion with subsequent improvement in her pulmonary status. Patient experienced hypotension during hospitalization so her lisinopril and metoprolol were titrated down. Her dysphasia improved. She was able to tolerate her soft diet. By June 21 patient had reached maximum benefit from inpatient hospitalization. She was cleared by oncology for discharge and was discharged to SNF however was waiting for insurance authorization which they obtained today. Patient will be discharged today and is currently awaiting transportation. She is currently stable. Prescription for Xanax as needed was written and placed in chart. Please see note on . No new changes to medical management. Update to medical management 06/23/17: no new changes. Script for Xanax 0.5mg po BID written and placed in chart 1. Shortness of breath/COPD exacerbation/CHF exacerbation/LE edema Acute on chronic systolic heart failure Per review of previous cardiology note, echocardiogram with EF 35%. Patient status post AICD [address] Moran Patient found to be hypoxic by EMS with an oxygen saturation in the 50s. ABG 7.44/43/138/28. BNP elevated at 871 Chest x-ray significant for consolidation and moderate to large effusion seen at the left lung base, worse. There is left volume loss and masslike opacity of the left hilar region. Chest US with 146cc fluid -continue on supplemental oxygen to maintain adequate O2 saturation -Ignacio scheduled -Pt will require oxygen at rehab -P.o. Lasix have been on hold due to hypotension. 2. Non-small cell lung cancer The patient's oncologist, Dr. Wong consulted, appreciate recommendations Chest CT ordered by Dr. Wong revealing stable left suprahilar mass. Per Dr. Wong, patient not a candidate for additional chemotherapy due to poor performance status Patient declines hospice at this time but is agreeable to palliative care -Consult palliative care. Patient would like to discuss hospice with her children. If her goals remain to have aggressive care than rehab would be most appropriate upon discharge. Appreciate palliative care consultation. Initially patient willing to go to hospice at the [facility], however patient refusing to be DNR/DNI so patient is not a candidate for hospice at the [facility]. Pt will need rehab. CM consulted for assistance w d/c planning to rehab and hospice can f/u there. 3. Elevated troponin troponin 0.29 -> 0.28 -> 0.28 Hypotensive Cardiology consulted - recommended conservative management. Currently on lisinopril 2.5mg po daily and metoprolol to 12.5mg po BID ( continue to watch BP closely and titrate down further as needed. Blood pressures have been stable, map stable) 4. Atrial fibrillation -Continue home amiodarone, metoprolol -Continue anticoagulation with aspirin/Plavix 5. CAD/hyperlipidemia/hyperthyroidism/GERD Hypotensive. Hold parameters placed on antihypertensives. Decreased BP med doses 6. Hypokalemia -resolved s/p repletion 7. Dysphagia Dysphonia Speech therapy consulted for swallow evaluation with recs for mechanical soft/ thin liquid diet Barium swallow ordered showing no aspiration, mildly delayed passage of barium 8. Hyperthyroidism on Propylthiouracil TSH 26.7 T3 and T4 levels are normal. Elevated TSH is normal and treated hyperthyroidism. Continue PTU at current dose. 9. BLE edema and pain Doppler US negative for DVT. Edema improved. 10. Thrombocytopenia Macrocytosis Possible myelodysplastic syndrome No e/o active bleeding -continue on Plavix/ASA for now -continue to monitor platelets closely. Repeat CBC in am. Discharge Planning Pt waiting on transportation for d/c Problem Qualifiers (1) Dysphagia: Qualified Codes: R13.10 - Dysphagia, unspecified (2) Coronary artery disease: Qualified Codes: I25.10 - Atherosclerotic heart disease of [place] coronary artery without angina pectoris Darling Dale MD Jun 23, 2017 16:43
== END 2017-06-23 17:02 | DRG 292 ==
LOC: NEPE 21:09 → NEDA 22:52 → NEPHCDU 06-17 00:03 → HCIN 06-19 00:55
PROVIDERS: ADMIT Hospitalist; ATTEND Hospitalist
PROC: 0W9B3ZZ Drainage of Left Pleural Cavity, Percutaneous Approach (ICD-10-PCS; principal; 2017-06-19)
DX: I11.0 Hypertensive heart disease with heart failure (principal); J44.1 Chronic obstructive pulmonary disease with (acute) exacerbation; R64 Cachexia; I95.9 Hypotension, unspecified; J90 Pleural effusion, not elsewhere classified; I48.91 Unspecified atrial fibrillation; C34.02 Malignant neoplasm of left main bronchus; Z95.1 Presence of aortocoronary bypass graft; I50.23 Acute on chronic systolic (congestive) heart failure; R13.10 Dysphagia, unspecified; D46.9 Myelodysplastic syndrome, unspecified; K21.9 Gastro-esophageal reflux disease without esophagitis; I25.10 Atherosclerotic heart disease of native coronary artery without angina pectoris; E05.90 Thyrotoxicosis, unspecified without thyrotoxic crisis or storm; I44.4 Left anterior fascicular block; I25.2 Old myocardial infarction; E78.5 Hyperlipidemia, unspecified; R09.02 Hypoxemia; E87.6 Hypokalemia; R74.8 Abnormal levels of other serum enzymes; R49.0 Dysphonia; F32.9 Major depressive disorder, single episode, unspecified; F41.9 Anxiety disorder, unspecified; Z82.49 Family history of ischemic heart disease and other diseases of the circulatory system; Z86.73 Personal history of transient ischemic attack (TIA), and cerebral infarction without residual deficits; Z87.891 Personal history of nicotine dependence; Z88.0 Allergy status to penicillin; Z88.5 Allergy status to narcotic agent; Z92.21 Personal history of antineoplastic chemotherapy; Z95.5 Presence of coronary angioplasty implant and graft; Z95.810 Presence of automatic (implantable) cardiac defibrillator
CPT/HCPCS: 32555; 36600; 71045; 71260; 74230; 76604; 80048; 80053; 81001; 82550; 82805; 82945; 83615; 83735; 83880; 84157; 84439; 84443; 84480; 84484; 85007; 85025; 85027; 85610; 85730; 88112; 88305; 89051; 93005; 93970; 94618; 94640; 94664; 99285; C1729; J1642; J1644; J1940; P9612; Q9967